=== PATIENT | female | born 2000 | race Two or more races ===

== ENCOUNTER 2024-04-07 12:10 | Emergency (ER) | payer MEDICAID, SELFPAY ==
[2024-04-07 12:14] VITALS: BMI 41.2
[2024-04-07 13:19] VITALS: BP 100/63; PULSE 80; RESP 16; TEMP 37; O2SAT 99
--- NOTE | 2024-04-07 13:25 | XR_ITS ---
Examination: Complete OB ultrasound, less than 14 weeks, transabdominal Date and time of exam: April 07, 2024 1435 hours INDICATIONS: Pelvic cramping nausea and vomiting beginning 2 days ago Technique: Obstetrical ultrasound images less than 14 weeks performed via transabdominal imaging Findings: A normal shaped single intrauterine gestation is present in the uterus. pole 0.4 cm correspondences 6 weeks 1 day gestational age Cardiac motion 120 bpm Ultrasonographic survey of visible and placental structures unremarkable. Amniotic fluid volume appears appropriate for this estimated gestational age. Right ovary 3.0 x 1.9 x 2.2 cm arterial flow Left ovary 3.1 x 2.0 x 2.4 cm arterial flow No fluid in the cul-de-sac IMPRESSION: Viable intrauterine gestation 6 weeks 1 day.
--- NOTE | 2024-04-07 13:26 | PD.EDRME ---
Rapid Medical Screening Exam RME Arrival date/time: 04/07/24 12:10 23-year-old female presents to the emergency department for nausea vomiting positive 1 para 0 Reports has been vomiting have some abdominal cramping. I have greeted and performed a focused initial assessment of this patient. Initial appropriate labs ordered at this time. A comprehensive ED assessment and evaluation of the patient and analysis of all test and completion of medical decision making process will be conducted by additional ED provider. Chief Complaint: Nausea/Vomiting/Diarrhea Time Seen by Provider: 04/07/24 13:14 Vital signs: Vital Signs Temperature 98.6 F 04/07/24 13:19 Pulse Rate 80 04/07/24 13:19 Respiratory Rate 16 04/07/24 13:19 Blood Pressure 100/63 04/07/24 13:19 Pulse Oximetry (%) 99 04/07/24 13:19 Oxygen Delivery Method Room Air 04/07/24 13:19
[2024-04-07 14:16] LABS: Basophils % (Auto) 0 % (0-2.5); Eosinophils # (Auto) 0.1 Thou/mm3 (0.0-0.5); Eosinophils % (Auto) 1 % (0-10); Hematocrit 34.8 % (36.0-46.0); Hemoglobin 11.9 g/dL (12.0-16.0); Immature Granulocytes % (Auto) 0 % (0-0); Immature Granulocytes Auto 0.02 Thou/mm3 (0.00-0.00); Lymphocytes # (Auto) 1.2 Thou/mm3 (1.0-4.8); Lymphocytes % (Auto) 14 % (10-50); Mean Corpuscular HGB Conc 34.2 g/dl (31.0-37.0); Mean Corpuscular Hemoglobin 30.4 pg (25.0-35.0); Mean Corpuscular Volume 89 fL (80-100); Monocytes # (Auto) 0.6 Thou/mm3 (0.0-0.8); Monocytes % (Auto) 7 % (0-12); Neutrophils # (Auto) 6.9 Thou/mm3 (1.8-7.7); Neutrophils % (Auto) 77 % (37-80); Nucleated Red Blood Cell % 0 /100 WBC (0); Platelet Count 284 Thou/mm3 (140-440); RDW Standard Deviation 44.9 fL (36.4-46.3); Red Blood Count 3.91 Miln/mm3 (4.00-5.20); White Blood Count 8.9 Thou/mm3 (3.6-11.0)
[2024-04-07 14:23] LABS: Collection Type, Urine Clean Catch
[2024-04-07 14:38] LABS: Alanine Aminotransferase 31 U/L (10-49); Albumin, Serum 4.8 gm/dL (3.5-5.0); Albumin/Globulin Ratio 1.4 (1.2-2.2); Alkaline Phosphatase 63 U/L (46-116); Anion Gap 12 (7-16); Aspartate Amino Transferase 24 U/L (0-34); BUN/Creatinine Ratio 14 Ratio (12-20); Bilirubin,Total 0.5 mg/dL (0.3-1.2); Blood Urea Nitrogen 10 mg/dL (9-23); Calcium 9.8 mg/dL (8.3-10.6); Calcium (Corrected) 9.8 mg/dL (8.5-10.1); Carbon Dioxide 23.1 mMol/L (20.0-31.0); Chloride 100 mMol/L (98-107); Creatinine (Component) 0.7 mg/dL (0.6-1.3); Estimated Creatinine Clearance 123.1 mL/min (>60); Globulin 3.4 gm/dL (2.3-3.5); Glucose 81 mg/dL (74-106); Osmolality,Calculated 268 (275-295); Potassium 3.8 mMol/L (3.4-5.1); Sodium 135 mMol/L (136-145); Total Protein 8.2 gm/dL (5.7-8.2); eGFR > 60 See Note
[2024-04-07 14:49] LABS: Bacteria,Urine 3+; Bilirubin,Urine Negative (Negative); Blood,Urine 2+ (Negative); Clarity,Urine Turbid (Clear/Hazy); Color,Urine Yellow (Lt Yel-Yel); Glucose, Urine Negative (Negative); Ketones,Urine 4+ (Negative); Leukocyte Esterase,Urine Positive (Negative); Nitrite,Urine Negative (Negative); Protein,Urine 1+ (Neg - Trace); RBC,Urine 1 /hpf (0-3); Specific Gravity,Urine 1.038 (1.001-1.035); Squamous Epithelial Cell,Urine 17 /hpf (0-5); WBC,Urine 16 /hpf (0-5)
[2024-04-07] MEDS: METOCLOPRAMIDE 5 MG TABLET 10 MG PO (14:50)
[2024-04-07 15:07] LABS: Beta HCG,Quantitative 37160 mIU/mL (<5.0)
--- NOTE | 2024-04-07 19:23 | EDNOTE_ITS ---
Nausea/Vomit./Diarrhea-RME/HPI General Chief complaint: Nausea/Vomiting/Diarrhea Stated complaint: with N/V x 1 week, Hemoptosis Time Seen by Provider: 04/07/24 13:14 Arrival date/time: 04/07/24 12:10 Limitations: no limitations RME / HPI RME / HPI Narrative: 04/07/24 12:10 23-year-old female presents to the emergency department for nausea vomiting positive 1 para 0 Reports has been vomiting have some abdominal cramping. I have greeted and performed a focused initial assessment of this patient. Initial appropriate labs ordered at this time. A comprehensive ED assessment and evaluation of the patient and analysis of all test and completion of medical decision making process will be conducted by additional ED provider. DR. LUTZ MAIN ED EVALUATION: 23 year female, 6 weeks 1, para 0, presents to the Emergency Department with complaints of nausea and vomiting. Symptoms are moderate. Patient denies any dysuria or other symptoms at this time. She just found out she is . PMHx: Denies any PMHx, surgeries, daily medications, or known allergies. PCP: [facility] Related Data Previous Rx's ?Medication ?Instructions ?Recorded ofloxacin 0.3 % eye drops 2 drop ophthalmic (eye) QID #5 mL 10/03/19 ondansetron 4 mg disintegrating 4 mg PO Q6H PRN nausea and 07/06/22 tablet vomiting #10 tabs vit,calcium no.40-iron 1 tab PO QDAY #30 tabs 04/07/24 fum 27 mg iron-folate no.1 1 mg tablet (PNV-Select) Allergies Allergy/AdvReac Type Severity Reaction Status Date / Time erythromycin base Allergy Verified 04/07/24 12:13 [From Erythrocin] Review of Systems Review of Systems Systems Reviewed: All systems reviewed, normal except as documented Narrative Review of Systems: GEN: No fever, no chills, no weight loss EYES: No discharge, no visual changes, no pain HEENT: No ear pain, no congestion, no sore throat PULM: No shortness of breath, no cough, no congestion CV: No chest pain, no dyspnea on exertion, no palpitations GI: + nausea, + vomiting, no diarrhea, no pain, no constipation : No frequency, no urgency and no dysuria MUSC/SKEL: No joint pain, no back pain SKIN: No rash PSYCH: No hallucinations, no depression HEME/LYMPH: No easy bleeding or bruising tendencies NEURO: No weakness, no headache Past Medical History Past Medical History CARDIAC: Negative Congestive Heart Failure RESPIRATORY: Negative Chronic Obstructive Pulmonary Disease (COPD) GENITOURINARY: Negative Renal Disease ENDOCRINE: Negative Diabetes Mellitus Type 1 or Diabetes Mellitus Type 2 Social History SMOKING STATUS: Never smoker SUBSTANCE USE: marijuana ALCOHOL: Never ED Exam General Limitations: Present no limitations General appearance: Present alert and in no apparent distress Head Head exam: Present atraumatic, normocephalic and normal inspection Eye Eye exam: Present normal appearance, PERRL and EOMI ENT ENT exam: Present normal exam, normal oropharynx and mucous membranes moist Neck Neck exam: Present normal inspection, full ROM and trachea midline Chest Chest inspection: Present normal inspection and symmetric chest wall rise Respiratory Respiratory exam: Present normal lung sounds bilaterally Cardiovascular Cardiovascular exam: Present regular rate, normal rhythm and normal heart sounds Abdominal Exam Abdominal exam: Present soft and normal bowel sounds Extremities Exam Extremities exam: Present normal inspection and full ROM Back Exam Back exam: Present normal inspection and full ROM Neurological Exam Neurological exam: Present alert, oriented X3 and CN II-XII intact Psychiatric Psychiatric exam: Present normal affect and normal mood Skin Skin exam: Present warm, dry, intact and normal color Course Quality Measures none Orders Category Date Time Status US OB <= 14 weeks fetus Stat Exams 04/07/24 13:25 Completed ABO/RH Type Stat Lab 04/07/24 13:51 Completed Beta HCG,Quantitative Stat Lab 04/07/24 13:51 Completed CBC Stat Lab 04/07/24 13:51 Completed Comprehensive Metabolic Panel Stat Lab 04/07/24 13:51 Completed Urinalysis Stat Lab 04/07/24 14:14 Completed Urine Culture Stat Lab 04/07/24 14:14 Received Metoclopramide [Reglan] Med 04/07/24 13:26 Discontinued 10 mg PO X1 ONE Vital Signs Vital signs: Vital Signs Temperature 98.6 F 04/07/24 13:19 Pulse Rate 80 04/07/24 13:19 Respiratory Rate 16 04/07/24 13:19 Blood Pressure 100/63 04/07/24 13:19 Pulse Oximetry (%) 99 04/07/24 13:19 Oxygen Delivery Method Room Air 01/24/25 13:19 Nausea/Vomiting/Diarrhea MDM Narrative MDM Narrative:: I, Cintia Spears, am scribing for and in the presence of Dr. Lutz. Patient data External records reviewed:: [facility] previous records (Reviewed last ED visit dated 07/06/22, discharged with the following: UTI.) Clinical information provided by:: patient Social determinants that could affect healthcare access:: substance use (marijuana abuse) Patient has the following chronic illnesses:: Denies any PMHx, surgeries, daily medications, or known allergies. How is presenting disease/condition affected by chronic disease/condition?: no chronic disease Evaluation data The following diagnostics were reviewed and interpreted by me:: lab results and radiology exam(s) Lab and/or radiology exams considered but not ordered:: none Interpretation Summary: Procedure(s): US OB <= 14 weeks fetus Accession Number(s): [id number] cc: Seth Al MD; Henry Mcconnell MD; Viviana Morales~ Examination: Complete OB ultrasound, less than 14 weeks, transabdominal Date and time of exam: April 07, 2024 1435 hours INDICATIONS: Pelvic cramping nausea and vomiting beginning 2 days ago Technique: Obstetrical ultrasound images less than 14 weeks performed via transabdominal imaging Findings: A normal shaped single intrauterine gestation is present in the uterus. pole 0.4 cm correspondences 6 weeks 1 day gestational age Cardiac motion 120 bpm Ultrasonographic survey of visible and placental structures unremarkable. Amniotic fluid volume appears appropriate for this estimated gestational age. Right ovary 3.0 x 1.9 x 2.2 cm arterial flow Left ovary 3.1 x 2.0 x 2.4 cm arterial flow No fluid in the cul-de-sac IMPRESSION: Viable intrauterine gestation 6 weeks 1 day. Dictated By: Henry Mcconnell MD Medications / Prescriptions Medications / Prescriptions considered but not ordered:: none Medication administrations:: Medication Administration History Discontinued Medications Metoclopramide HCl (Metoclopramide 5 Mg Tablet) 10 mg PO X1 ONE Stop: 04/07/24 13:27 Last Admin: 04/07/24 14:50 Dose: 10 mg Documented By: see above Consultations Consultation(s) initiated? (list below): No Diagnosis Nausea Differential Diagnosis: dehydration and other (, UTI, electrolyte abnormality) Most likely diagnosis given after review of the tests above:: Intrauterine Nausea Admission Indicated Admission indicated?: not indicated Admission Request Was there a request for admission?: No Disposition Plan Disposition Plan: Discharge Discharge Attestation Discharge Attestation: The patient and all family members were given an opportunity to ask questions and understood the discharge instructions. Discharge instructions specifically effects, indications for sooner follow up or return to the emergency department, and the expected course of current diagnosis. Patient condition: Stable Discharge Plan Plan Patient Disposition: HOME (Self Care) Patient condition on transfer: Stable Prescriptions/Referrals Prescriptions/Med Rec: New PNV-Select 27-1 mg tablet 1 tab PO QDAY Qty: 30 1RF No Action ofloxacin 0.3 % drops 2 drop OPHTHALMIC QID Qty: 5 0RF ondansetron 4 mg tablet,disintegrating 4 mg PO Q6H PRN (Reason: nausea and vomiting) Qty: 10 0RF Referrals: Seth Al MD [Primary Care Provider] - In 1 week Problem List Clinical Impression: Intrauterine , Nausea Patient/Caregiver Discharge Instructions Education Materials: First Trimester, ED Vomiting (Adult) Additional Instructions: 1. Today you are slightly dehydrated however you are still tolerating liquids. You will need to drink Gatorade. Your urine should be almost clear. 2. Please [facility] with [facility] for referral to [facility] for the next 2 to 3 weeks 3. Today your urine shows that you have some bacteria but you have elected not to be treated. You will need to follow-up with your primary care physician in 72 hours to get the results of the urine culture. Return to the emergency department sooner than your appointment if you are having any back pain, fever, vomiting you cannot tolerate liquids, or any other concerns. Print Language: Turkmen Stand Alone Forms: Nancie Award Info., Patient Portal Info Letter
[2024-04-07 20:02] VITALS: RESP 18
== END 2024-04-07 20:03 | disposition home or self-care (01) ==
PROVIDERS: Nurse Practitioner Primary Care; Emergency Provider Emergency Medicine; PCP Family Medicine
DX: O21.9 Vomiting of pregnancy, unspecified (principal); Z3A.01 Less than 8 weeks gestation of pregnancy
CPT/HCPCS: 36415; 76801; 80053; 81001; 84702; 85025; 86900; 86901; 87086; 99284; A9270

== ENCOUNTER 2024-12-04 12:29 | Inpatient (IN) | payer MEDICAID, SELFPAY ==
[2024-12-04] VITALS (14 sets, daily range): BP systolic 111–131; BP diastolic 60–78; PULSE 67–79; RESP 16–98; TEMP 2.6–36.9; O2SAT 99–100; BMI 43.0
--- NOTE | 2024-12-04 09:18 | ESHP_ITS ---
RE: CHICO REES : 2000 DATE OF ADMISSION: 12/04/2024 HISTORY OF PRESENT ILLNESS: This is a 24-year-old 1, para 0 with due date of 11/30/2024 with intrauterine at 40 weeks and 4 days on 12/04/2024, who presents for leaking of fluid and amniosure is positive. The patient reports normal movement. She denies any bleeding. She reports contractions. Her care was complicated by hypothyroidism for which she takes levothyroxine. ALLERGIES: NO KNOWN DRUG ALLERGIES. MEDICATIONS: 1. multivitamin 1 p.o. daily. 2. Levothyroxine 150 mcg 1 p.o. daily. PAST MEDICAL HISTORY: Depression, anxiety, hypothyroidism. SOCIAL HISTORY: She denies any alcohol, drug use or smoking. FAMILY HISTORY: Denies. PAST SURGICAL HISTORY: Denies. REVIEW OF SYSTEMS: She denies any chest pain, palpitations, cough, fever, shortness of breath or lower extremity pain. She denies any headache, change in vision or right upper quadrant pain. PHYSICAL EXAMINATION: VITAL SIGNS: Blood pressure 121/63, heart rate 88, respirations 18, temperature is 98.6. HEENT: Oropharynx and sclerae are clear. LUNGS: Clear to auscultation bilaterally. HEART: Regular rate and rhythm. ABDOMEN: Gravid, term size consistent with estimated weight, 7 3/4 pounds. PELVIC: See RN notes. EXTREMITIES: Nontender. SKIN: No gross rashes or lesions. NEUROLOGIC: No focal deficit. ASSESSMENT AND PLAN: Intrauterine at 40 weeks 4 days on 12/04/2024, PROM. Anticipate spontaneous vaginal delivery. Informed consent was obtained. The patient was made aware of the risks, complications, alternatives, and benefits of operative vaginal delivery and delivery and agrees with these modes of delivery if indicated. DT: 15:06:38 TT: 15:36:00 Ref: [id number] - TID: [id number] MTDD
[2024-12-04 13:03] LABS: ROM Kit Exp Date# 1-18-28; ROM Kit Lot # 58104371; ROM Swab Mixed By: PATTC1; Rupture of Fetal Membranes Positive (Negative); Swb Mxed in Solvent 1 min? Yes
[2024-12-04 15:33] LABS: Basophils # (Auto) 0.0 Thou/mm3 (0.0-0.2); Basophils % (Auto) 0 % (0-2.5); Eosinophils # (Auto) 0.1 Thou/mm3 (0.0-0.5); Eosinophils % (Auto) 2 % (0-10); Hematocrit 34.2 % (36.0-46.0); Hemoglobin 11.3 g/dL (12.0-16.0); Immature Granulocytes Auto 0.03 Thou/mm3 (0.00-0.00); Lymphocytes # (Auto) 1.0 Thou/mm3 (1.0-4.8); Lymphocytes % (Auto) 13 % (10-50); Mean Corpuscular HGB Conc 33.0 g/dl (31.0-37.0); Mean Corpuscular Hemoglobin 29.5 pg (25.0-35.0); Mean Corpuscular Volume 89 fL (80-100); Monocytes # (Auto) 0.7 Thou/mm3 (0.0-0.8); Monocytes % (Auto) 8 % (0-12); Neutrophils # (Auto) 6.0 Thou/mm3 (1.8-7.7); Neutrophils % (Auto) 76 % (37-80); Nucleated Red Blood Cell # 0.00 Thou/mm3 (0.00-0.00); Nucleated Red Blood Cell % 0 /100 WBC (0); Platelet Count 229 Thou/mm3 (140-440); RDW Standard Deviation 45.2 fL (36.4-46.3); Red Blood Count 3.83 Miln/mm3 (4.00-5.20); White Blood Count 7.8 Thou/mm3 (3.6-11.0)
[2024-12-04 15:56] LABS: Syphilis Nonreactive (Nonreactive)
[2024-12-04] MEDS: RINGERS LACTATED 1000 ML 1,000 ML 100 ML IV (19:00)
--- NOTE | 2024-12-04 19:12 | XR_ITS ---
Examination: age Limited Technique: Limited transabdominal sonographic images pelvis Date and time: December 04, 2024, 1948 hrs. Indications: Post dates, unknown presentation. Findings: presentation cephalic spine maternal right Placenta anterior grade 3 Cardiac motion 144 BPM Impression: presentation cephalic
[2024-12-04] MEDS: fentaNYL CIT INJ 50 mCg/ML AMP 2ML 100 MCG IM (21:13)
[2024-12-05] VITALS (209 sets, daily range): BP systolic 93–149; BP diastolic 49–101; PULSE 64–117; RESP 16–24; TEMP 36.8–38; O2SAT 88–100
[2024-12-05] MEDS: RINGERS LACTATED 1000 ML 1,000 ML 100 ML IV ×3 (00:25→08:35)
[2024-12-05] MEDS: OXYTOCIN in NS 30 units 30 UNIT/500 ML BAG IV (01:48)
--- NOTE | 2024-12-05 07:09 | PD.LDPN ---
Documentation for date of: 12/05/24 OB Labor Progress Note Pelvic Exam Dilation (cm): 7 Effacement (%): 80 station: -1 Amniotic membrane status: Ruptured Contractions Monitor mode: External Contraction frequency: 2-3 Contraction intensity: Moderate Status status: Category ll Assessment and Plan Pitocin rate (mU/min): 1 Comments: Anticipate Augmentation with Pitocin.
[2024-12-05] MEDS: Ampicillin Inj 2,000 MG in SODIUM CHLORIDE 0.9% (POP) 100 ML 200 MG IV (12:05)
--- NOTE | 2024-12-05 12:05 | ESPR_ITS ---
Documentation for date of: 12/05/24 OB Labor Progress Note Pain Control Comments: Epidural Pelvic Exam Dilation (cm): 8 Effacement (%): 90 station: 0 Amniotic membrane status: Leaking Contractions Monitor mode: External Contraction frequency: 1-3 Contraction intensity: Strong Status status: Category ll Assessment and Plan Comments: Chorioamnionitis Category 2 tracing trending toward category 3 Amp/Gent Delivery Informed consent was obtained. The patient was made aware of the risks, compl ications, alternatives and benefits of the proposed procedure and she agrees.
[2024-12-05] MEDS: CITRIC ACID/SODIUM CITR 15 ML UDC (BICITRA) 30 ML PO (12:09)
[2024-12-05] MEDS: FAMOTIDINE INJ 10 MG/ML VIAL 2 ML 20 MG IV (12:09)
--- NOTE | 2024-12-05 12:10 | PD.GYNPROC ---
Operative Note - INSULATION CUPOLA CHARGER Procedure Date of procedure: 12/05/24 Indication: IUP 40 weeks and 5 days Induction of labor Prolonged rupture of membranes Chorioamnionitis Category 2 tracing trending toward category 3 tracing Arrest of Dilation Pre-Op diagnosis: IUP 40 weeks and 5 days Induction of labor Prolonged rupture of membranes Chorioamnionitis Category 2 tracing trending toward category 3 tracing Arrest of Dilation Post-Op diagnosis: IUP 40 weeks and 5 days Induction of labor Prolonged rupture of membranes Chorioamnionitis Category 2 tracing trending toward category 3 tracing Arrest of Dilation Uterine atony Anesthesia type: Epidural Procedure description: After proper informed consent was obtained and the patient was made aware of the risks, complications, alternatives and benefits of the proposed procedure she was taken to the operating room where she underwent induction of spinal anesthesia. She was prepped and draped in the usual sterile fashion. A timeout was performed.? A Pfannenstiel skin incision was made with the scalpel and carried through to the underlying layer of fascia with the Bovie. The fascia was nicked in the midline incision and the incision was extended bilaterally with the Bovie. The inferior aspect of the fascial incision was grasped with Lisy clamps elevated and the underlying rectus muscle dissected off with the Bovie. The superior aspect the fascial incision was grasped with Lisy clamps elevated and the underlying rectus muscle dissected off with the Bovie. The rectus muscles were in the midline. The peritoneum was grasped between 2 Gabriel clamps and entered sharply with the Metzenbaum scissors. The peritoneum was extended superiorly and inferiorly with good visualization of the bladder. The vesicouterine peritoneum was incised transversely and the bladder flap created digitally. A [place] blade was inserted. A low transverse incision was made in the uterus with a scapel and the incision was extended digitally. The 's head delivered and the mouth and nose were suctioned with the bulb suction. The shoulder and body delivered atraumatically. The cord was clamped after 30 second delayed cord clamping and the cord was cut.? The was handed off to the waiting Pediatric staff, cord blood was collected for lab testing. The placenta was removed complete and intact. The uterus was exteriorized and cleared of all clots and debris. The uterus was initially atonic but responded to uterotonics and TXA. The uterine incision was closed with #1-0 chromic catgut suture in a running interlocking fashion. A second layer of the same suture was used to imbricate the first layer and obtain excellent hemostasis. The vesicouterine peritoneum was closed with 2-0 chromic catgut suture in a running fashion. The firm uterus was returned to the abdomen. The gutters were cleared of all clots and debris. The peritoneum was closed with 0 chromic catgut suture in running fashion. The rectus muscle was closed with 0 chromic catgut suture. The fascia was closed with 0 Vicryl beginning at each angle and ending in the center in a running fashion. The subcutaneous tissue was irrigated with warmed normal saline solution and found to be hemostatic. The subcutaneous tissue was closed with 2-0 chromic catgut suture in a running fashion. The skin was closed with 4-0 Monocryl. A Dermabond Prineo dressing was applied and a sterile pressure dressing was applied.? She tolerated the procedure well. Counts were correct. I discussed with the patient the nature of her condition, intraoperative findings and expectation for recovery all? questions answered. Specimen: other (placenta. ) Findings: Live baby male Apgars 8 and 9 Cephalic Clear amniotic fluid Weight 7lbs 7 oz Placenta removed complete intact Uterus, initially atonic but responded to uterotonic Fallopian tubes and ovaries grossly within normal limits Complications: other (uterine atony.) Narrative: No vacuum or forceps were used for the delivery. Surgical staff Antolin Davis, CHRIS Sloan Diagnosis Problem List Completed Was Problem List Reviewed/Reconciled?: Yes
[2024-12-05] MEDS: GENTAMICIN/NS 80 MG IVPB 80 MG in PRE-MIXED 1 BAG 50 MG IV (12:35)
[2024-12-05] MEDS: ACETAMINOPHEN IVPB 1,000 MG/100 ML VIAL 250 MG IV (14:17)
[2024-12-05] MEDS: KETOROLAC INJ 30 MG/ML VIAL IVP (16:35)
[2024-12-05] MEDS: AMPICILLIN/SULBAC INJ 3 GM in SODIUM CHLORIDE 0.9% (POP) 100 ML IV ×2 (18:33→23:39)
--- NOTE | 2024-12-05 19:17 | PD.LDDELS ---
Data (Garcia) Data : 1 Delivery Data (Garcia) Labor Data Initiation of labor: Augmentation Induction/Augmentation Agent: Cytotec-PO and Pitocin ROM date: 12/04/24 ROM time: 11:30 Amniotic membrane rupture type: Spontaneous Amniotic fluid description: Clear Delivery Data EDC: 11/30/24 EDC calculated by:: LMP/early US confirmation Onset of labor date: 12/05/24 Onset of labor time: 13:04 [place] delivery date: 12/05/24 delivery time: 13:09 Gestational age (weeks): 40 Gestational age (days): 5 Placenta delivery date: 12/05/24 Placenta delivery time: 13:10 Delivered by: geiling Delivery nurse: terrie Hewitt nurse: terrie pettit Document Examiner at delivery: Yes Support person(s) at delivery: benjy Other staff at delivery: rodríguez payne rn student jomar scherer rn student kulwant rt student ojedg infection control Delivery Method Delivery method: Low Transverse Presentation: Vertex position: OP Anesthesia Type Anesthesia Type: Epidural Anesthesia type: Epidural Placenta Placenta delivery description: Manual Removal Cord blood sent to lab: Yes cord blood collection: Cord Blood Type Episiotomy Episiotomy description: None EBL Estimated blood loss (ml): 600 Umbilical Cord cord description: 3 Vessels Additional Procedures None Complications Complications: Uterine atony Data (Garcia) Data order: 1 [place]'s gender: Male weight (gms): 7 lb 7.579 oz Weight (pounds): 7 lbs and 7.6 ozs 1 minute: 8 5 minutes: 9
[2024-12-05] MEDS: HYDROcodone/APAP 5/325 TABLET 2 TAB PO (20:53)
[2024-12-05 21:17] LABS: Basophils # (Auto) 0.0 Thou/mm3 (0.0-0.2); Basophils % (Auto) 0 % (0-2.5); Eosinophils # (Auto) 0.0 Thou/mm3 (0.0-0.5); Eosinophils % (Auto) 0 % (0-10); Hematocrit 28.4 % (36.0-46.0); Hemoglobin 9.5 g/dL (12.0-16.0); Immature Granulocytes Auto 0.06 Thou/mm3 (0.00-0.00); Lymphocytes # (Auto) 1.1 Thou/mm3 (1.0-4.8); Lymphocytes % (Auto) 8 % (10-50); Mean Corpuscular HGB Conc 33.5 g/dl (31.0-37.0); Mean Corpuscular Hemoglobin 29.8 pg (25.0-35.0); Mean Corpuscular Volume 89 fL (80-100); Monocytes # (Auto) 0.9 Thou/mm3 (0.0-0.8); Monocytes % (Auto) 6 % (0-12); Neutrophils # (Auto) 12.4 Thou/mm3 (1.8-7.7); Neutrophils % (Auto) 86 % (37-80); Nucleated Red Blood Cell # 0.00 Thou/mm3 (0.00-0.00); Nucleated Red Blood Cell % 0 /100 WBC (0); Platelet Count 183 Thou/mm3 (140-440); RDW Standard Deviation 45.5 fL (36.4-46.3); Red Blood Count 3.19 Miln/mm3 (4.00-5.20); White Blood Count 14.4 Thou/mm3 (3.6-11.0)
[2024-12-06] VITALS: BP 129/86; PULSE 67; RESP 17; TEMP 36.6; O2SAT 96
[2024-12-06 01:34] LABS: Gentamicin, Random 1.8 mcg/mL (4.0-10.0)
[2024-12-06] MEDS: OXYTOCIN in NS 20 units 20 UNIT/1,000 ML BAG 125 UNIT IV (03:24)
[2024-12-06] MEDS: HYDROcodone/APAP 5/325 TABLET 1 TAB PO ×2 (03:44→19:30)
[2024-12-06 04:00] VITALS: BP 122/82; PULSE 75; RESP 18; TEMP 36.8; O2SAT 97
[2024-12-06] MEDS: AMPICILLIN/SULBAC INJ 3 GM in SODIUM CHLORIDE 0.9% (POP) 100 ML IV ×3 (05:40→17:51)
[2024-12-06] MEDS: LEVOTHYROXINE SODIUM 125 MCG TABLET PO (05:40)
[2024-12-06 05:45] LABS: Basophils # (Auto) 0.0 Thou/mm3 (0.0-0.2); Basophils % (Auto) 0 % (0-2.5); Eosinophils # (Auto) 0.1 Thou/mm3 (0.0-0.5); Eosinophils % (Auto) 1 % (0-10); Hematocrit 26.5 % (36.0-46.0); Hemoglobin 8.9 g/dL (12.0-16.0); Immature Granulocytes Auto 0.05 Thou/mm3 (0.00-0.00); Lymphocytes # (Auto) 1.1 Thou/mm3 (1.0-4.8); Lymphocytes % (Auto) 9 % (10-50); Mean Corpuscular HGB Conc 33.6 g/dl (31.0-37.0); Mean Corpuscular Hemoglobin 29.9 pg (25.0-35.0); Mean Corpuscular Volume 89 fL (80-100); Monocytes # (Auto) 1.1 Thou/mm3 (0.0-0.8); Monocytes % (Auto) 9 % (0-12); Neutrophils # (Auto) 10.1 Thou/mm3 (1.8-7.7); Neutrophils % (Auto) 81 % (37-80); Nucleated Red Blood Cell # 0.00 Thou/mm3 (0.00-0.00); Nucleated Red Blood Cell % 0 /100 WBC (0); Platelet Count 159 Thou/mm3 (140-440); RDW Standard Deviation 45.6 fL (36.4-46.3); Red Blood Count 2.98 Miln/mm3 (4.00-5.20); White Blood Count 12.5 Thou/mm3 (3.6-11.0)
[2024-12-06 06:06] LABS: Alanine Aminotransferase < 7 U/L (10-49); Albumin, Serum 3.0 gm/dL (3.5-5.0); Albumin/Globulin Ratio 1.3 (1.2-2.2); Alkaline Phosphatase 120 U/L (46-116); Anion Gap 7 (7-16); Aspartate Amino Transferase 20 U/L (0-34); BUN/Creatinine Ratio 9 Ratio (12-20); Bilirubin,Total 0.4 mg/dL (0.3-1.2); Blood Urea Nitrogen 7 mg/dL (9-23); Calcium 8.4 mg/dL (8.3-10.6); Calcium (Corrected) 9.2 mg/dL (8.5-10.1); Carbon Dioxide 23.1 mMol/L (20.0-31.0); Chloride 108 mMol/L (98-107); Creatinine (Component) 0.8 mg/dL (0.6-1.3); Estimated Creatinine Clearance 109.7 mL/min (>60); Globulin 2.4 gm/dL (2.3-3.5); Glucose 81 mg/dL (74-106); Osmolality,Calculated 272 (275-295); Potassium 3.8 mMol/L (3.4-5.1); Sodium 138 mMol/L (136-145); Total Protein 5.4 gm/dL (5.7-8.2); eGFR > 60 See Note
--- NOTE | 2024-12-06 07:27 | ESPR_ITS ---
RE: CHICO REES : 2000 DATE OF SERVICE: 12/06/2024 S: Postop day 1. The patient denies any problems or complaints. She is voiding and ambulating and tolerating a regular diet and passing flatus. She denies any excessive vaginal bleeding. She denies any dizziness or lightheadedness. She denies any chest pain, palpitations, shortness of breath or lower extremity pain. O: Vital Signs: Blood pressure 122/82, heart rate 75, respirations 17, temperature max 100.4. Lungs: Clear to auscultation bilaterally. Heart: Regular rate and rhythm. Abdomen: Mild gaseous distention. Dressing dry and intact. Fundus is firm. Extremities: Nontender. LABORATORY DATA: Hemoglobin pre-delivery is 11.3, post-delivery is 8.9. ASSESSMENT: 1. Postoperative day #1. 2. Status post delivery. 3. Endometritis. P: Continue IV antibiotics. Resume levothyroxine for hypothyroidism at pre- dosing. Continue IV antibiotics until discharge. Possible discharge home tomorrow. Anemia but hemodynamically stable with no ongoing significant vaginal bleeding. DT: 07:02:32 TT: 07:25:00 Ref: [id number] - TID: [id number]
[2024-12-06] MEDS: KETOROLAC INJ 30 MG/ML VIAL IVP (07:55)
[2024-12-06] MEDS: ENOXAPARIN SOD INJ 40 MG/0.4 ML SYRINGE SC (07:55)
[2024-12-06] MEDS: DOCUSATE SOD 100 MG CAPSULE PO (07:56)
[2024-12-06 08:00] VITALS: BP 125/83; PULSE 76; RESP 18; TEMP 36.4
[2024-12-06 12:00] VITALS: BP 125/84; PULSE 69; RESP 20; TEMP 36.6
[2024-12-06] MEDS: HYDROcodone/APAP 5/325 TABLET 2 TAB PO (14:09)
[2024-12-06 17:24] VITALS: BP 112/70; PULSE 85; RESP 20; TEMP 36.4; O2SAT 98
[2024-12-06 19:44] VITALS: BP 129/85; PULSE 87; RESP 20; TEMP 36.6; O2SAT 98
[2024-12-07] MEDS: AMPICILLIN/SULBAC INJ 3 GM in SODIUM CHLORIDE 0.9% (POP) 100 ML IV ×3 (00:10→11:35)
[2024-12-07 04:23] VITALS: BP 121/79; PULSE 98; RESP 16; TEMP 37.1; O2SAT 98
[2024-12-07] MEDS: LEVOTHYROXINE SODIUM 125 MCG TABLET PO (05:59)
[2024-12-07 06:09] LABS: Basophils # (Auto) 0.0 Thou/mm3 (0.0-0.2); Basophils % (Auto) 0 % (0-2.5); Eosinophils # (Auto) 0.2 Thou/mm3 (0.0-0.5); Eosinophils % (Auto) 2 % (0-10); Hematocrit 25.8 % (36.0-46.0); Immature Granulocytes Auto 0.03 Thou/mm3 (0.00-0.00); Lymphocytes # (Auto) 1.0 Thou/mm3 (1.0-4.8); Lymphocytes % (Auto) 9 % (10-50); Mean Corpuscular HGB Conc 32.6 g/dl (31.0-37.0); Mean Corpuscular Hemoglobin 29.8 pg (25.0-35.0); Mean Corpuscular Volume 92 fL (80-100); Monocytes # (Auto) 0.7 Thou/mm3 (0.0-0.8); Monocytes % (Auto) 7 % (0-12); Neutrophils # (Auto) 9.3 Thou/mm3 (1.8-7.7); Neutrophils % (Auto) 82 % (37-80); Nucleated Red Blood Cell # 0.00 Thou/mm3 (0.00-0.00); Nucleated Red Blood Cell % 0 /100 WBC (0); Platelet Count 187 Thou/mm3 (140-440); RDW Standard Deviation 47.4 fL (36.4-46.3); Red Blood Count 2.82 Miln/mm3 (4.00-5.20); White Blood Count 11.3 Thou/mm3 (3.6-11.0)
[2024-12-07 06:11] LABS: Hemoglobin 8.4 g/dL (12.0-16.0)
--- NOTE | 2024-12-07 06:18 | ESPR_ITS ---
RE: CHICO REES : 2000 DATE OF SERVICE: 12/07/2024 SUBJECTIVE: Postop day #2, patient denies any problems or complaints. She is voiding. She is ambulating. She is tolerating a regular diet. She is passing flatus. She denies any excessive vaginal bleeding. She denies any dizziness or lightheadedness. She denies any chest pain, palpitations, shortness of breath or lower extremity pain. OBJECTIVE: Vital Signs: Blood pressure 121/79, heart rate 98, respirations 16, temperature is 98.7, and pulse oximetry is 98% on room air. Lungs: Clear to auscultation bilaterally. Heart: Regular rate and rhythm. Abdomen: Incision clear and intact. Fundus is firm. Extremities: Nontender. ASSESSMENT: Postoperative day #2, status post delivery and endometritis, resolving. PLAN: Discharge home on Augmentin for 5 days. Continue Lovenox at prepregnancy dosing. Follow up in the office in 1 week. DT: 05:35:41 TT: 06:16:00 Ref: [id number] - TID: [id number]
[2024-12-07 07:05] LABS: Alanine Aminotransferase 8 U/L (10-49); Albumin, Serum 3.2 gm/dL (3.5-5.0); Albumin/Globulin Ratio 1.3 (1.2-2.2); Alkaline Phosphatase 119 U/L (46-116); Anion Gap 9 (7-16); Aspartate Amino Transferase 15 U/L (0-34); BUN/Creatinine Ratio 8 Ratio (12-20); Bilirubin,Total 0.2 mg/dL (0.3-1.2); Blood Urea Nitrogen < 5 mg/dL (9-23); Calcium 8.3 mg/dL (8.3-10.6); Calcium (Corrected) 8.9 mg/dL (8.5-10.1); Carbon Dioxide 26.2 mMol/L (20.0-31.0); Chloride 106 mMol/L (98-107); Creatinine (Component) 0.6 mg/dL (0.6-1.3); Estimated Creatinine Clearance 146.2 mL/min (>60); Globulin 2.4 gm/dL (2.3-3.5); Glucose 109 mg/dL (74-106); Osmolality,Calculated 279 (275-295); Potassium 3.8 mMol/L (3.4-5.1); Sodium 141 mMol/L (136-145); Total Protein 5.6 gm/dL (5.7-8.2); eGFR > 60 See Note
[2024-12-07 08:30] VITALS: BP 119/82; PULSE 82; RESP 16; TEMP 36.9; O2SAT 98
[2024-12-07] MEDS: DOCUSATE SOD 100 MG CAPSULE PO (08:46)
[2024-12-07] MEDS: HYDROcodone/APAP 5/325 TABLET 1 TAB PO (08:46)
[2024-12-07] MEDS: ENOXAPARIN SOD INJ 40 MG/0.4 ML SYRINGE SC (08:46)
[2024-12-07 12:00] VITALS: BP 120/75; PULSE 87; RESP 18; TEMP 36.8; O2SAT 96
--- NOTE | 2024-12-07 12:34 | PC.SS ---
This SW copywriting intern completed a face to face biopsychosocial assessment with pt at bedside. FOB of baby involved but no present during bedside. This SW copywriting intern explained the reason for referral as it was reported by assigned RN pt was late to care. Patient was alert and oriented to place and time, she appeared tired and seen bonding appropriately with baby in bed. Pt was able to verify home address and telephone number. She stated [facility] would be transporting both her and baby home once discharged. Pt reported she was late to care because she was having a hard time getting in with preferred provider Dr. Gillis. Patient stated she carried to term and delivered via . score of 8/9 . Pt stated this is her first baby with no history of CPS. She denies any history of drugs or alcohol in the home. Patient states she receives WIC, she receives [employer] $536 with no queen aid services. Patient reports she does her own ADL's and does not use any DME or O2. PT reports baby was not on any lights and passed hearing test. She states she will breast feed baby and has all supplies for baby at home. This SW copywriting intern provided community resources to [place] [facility], local mental health agencies, [facility] and [facility] agencies.
== END 2024-12-07 16:40 | disposition home or self-care (01) | DRG 540 ==
LOC: S4SX 12-05 12:30 → S4NX 12-05 12:50
PROVIDERS: Admitting Provider Specialist; Visit Provider Specialist
PROC: 10D00Z1 Extraction of Products of Conception, Low, Open Approach (ICD-10-PCS; CPT 59514; principal; 2024-12-05 12:30)
DX: O42.02 Full-term premature rupture of membranes, onset of labor within 24 hours of rupture (principal); O48.0 Post-term pregnancy; Z3A.40 40 weeks gestation of pregnancy; Z37.0 Single live birth; O99.284 Endocrine, nutritional and metabolic diseases complicating childbirth; E03.9 Hypothyroidism, unspecified; O41.1230 Chorioamnionitis, third trimester, not applicable or unspecified; O86.12 Endometritis following delivery; O62.0 Primary inadequate contractions; Z79.890 Hormone replacement therapy
CPT/HCPCS: 36415; 59025; 76815; 80053; 80170; 84112; 85025; 86780; 86850; 86900; 86901; 94762; A4217; A4314; A4649; J0131; J0290; J0295; J1580; J1650; J1885; J2210; J2371; J2590; J2795; J3010; J3490; J7050; J7120; S0191; A9270

== ENCOUNTER 2024-12-20 22:45 | Emergency (ER) | payer MEDICAID, SELFPAY ==
[2024-12-20 22:46] VITALS: BMI 36.3
--- NOTE | 2024-12-20 23:00 | PD.EDABDPN ---
ED Abdominal Pain RME/HPI General Chief Complaint: Abdominal Pain Stated complaint: UPPER ABD PAIN Arrival date/time: 12/20/24 22:45 RME / HPI RME / HPI narrative: See [facility] for Dr. Eubanks's HPI documentation. Related Data Previous Rx's ?Medication ?Instructions ?Recorded vit,calcium no.40-iron 1 tab PO QDAY #30 tabs 04/07/24 fum 27 mg iron-folate no.1 1 mg tablet (PNV-Select) hydrocodone 5 mg-acetaminophen 325 1 tab PO Q6H PRN pain #20 tabs 12/05/24 mg tablet ibuprofen 600 mg tablet 600 mg PO Q6H PRN pain #30 tabs 12/05/24 amoxicillin 875 mg-potassium 1 tab PO BID #10 tabs 12/07/24 clavulanate 125 mg tablet ferrous sulfate 325 mg (65 mg 325 mg PO BID #60 tabs 12/07/24 iron) tablet levothyroxine 125 mcg capsule 125 mcg PO QDAY #90 caps 12/07/24 amoxicillin 875 mg-potassium 1 tab PO BID 5 days #10 tabs 12/21/24 clavulanate 125 mg tablet ondansetron 4 mg disintegrating 4 mg PO TID PRN nausea and 12/21/24 tablet vomiting 30 days #10 tabs oxycodone-acetaminophen 5 mg-325 2 tab PO Q8H PRN pain #20 tabs 12/21/24 mg tablet (Percocet) Allergies Allergy/AdvReac Type Severity Reaction Status Date / Time erythromycin base (From Allergy Verified 12/04/24 18:56 Erythrocin) Review of Systems Review of Systems Systems Reviewed: All systems reviewed, normal except as documented ED Exam Narrative Physical exam: See [facility] for Dr. Eubanks's physical exam documentation. Course Quality Measures none Orders Category Date Time Status Saline [Insert IV] NOW Care 12/20/24 23:05 Completed US gall bladder Stat Exams 12/21/24 00:13 Taken Amylase Stat Lab 12/20/24 23:12 Completed Bilirubin,Direct Stat Lab 12/20/24 23:12 Completed CBC Stat Lab 12/20/24 23:12 Completed CMP [Comprehensive Metabolic Panel] Stat Lab 12/20/24 23:12 Completed HCG,Qualitative Serum Stat Lab 12/20/24 23:12 Completed Lipase Stat Lab 12/20/24 23:12 Completed Magnesium Stat Lab 12/20/24 23:12 Completed UA, C/S IF [Urinalysis, C/S if Indicated] Stat Lab 12/20/24 23:50 Completed Urine Culture Stat Lab 12/20/24 23:50 Received Morphine* Inj Med 12/20/24 23:05 Discontinued 6 mg IV X1 ONE Ondansetron Inj [Zofran Inj] Med 12/20/24 23:05 Discontinued 4 mg IVP X1 ONE Sodium Chloride 0.9% 1000 ml [Ns] 1,000 ml Med 12/20/24 23:05 Discontinued IV 999 mls/hr cefTRIAXone/D5w 1gm IV premix [Rocephin/D5w 1gm IV Med 12/21/24 00:43 Discontinued premix] 1 gm in 50 ml IV X1 Vital Signs Vital signs: Vital Signs Temperature 98.4 F 12/20/24 23:36 Pulse Rate 78 12/20/24 23:36 Respiratory Rate 18 12/20/24 23:36 Blood Pressure 110/76 12/20/24 23:36 Pulse Oximetry (%) 97 12/20/24 23:36 Oxygen Delivery Method Room Air 12/20/24 23:36 Abdominal Pain MDM MDM Narrative MDM Narrative:: This section includes all my notes and documentations, including HPI, PE, and ED course. Alex Eubanks MD HPI: 24yo female here with RUQ pain for the last 12 hours with nausea and vomiting. No fever. No other complaints reported. ROS: All negative except as documented in HPI. Physical Exam: General: Alert and oriented. In obvious pain. Eyes: Conjunctivae and lids clear. ENT: No nasal congestion. Neck: Supple. Heart: RRR. Lungs: No respiratory distress. Good air movement. No rhonchi, wheezing, rales. Abdomen: Soft with RUQ tenderness. Normal bowel sounds. No distension. No rebound or guarding. Back: No CVA tenderness. Skin: Warm and dry. Neuro: Alert and oriented X 3. I reviewed all diagnostic test results. My review of the gallbladder US report is cholelithiasis. Blood tests unremarkable. UA remarkable for positive leukocyte esterase, 16 RBC, and 14 WBC. At this point, diagnoses include: Gallstones UTI Treatment here included: Morphine 4 mg IV Zofran 4 mg IV IV fluid Rocephin 1 g IV Significant improvement noted. Recommended outpatient care. Based on my best medical judgment, made decision no further evaluation or treatment indicated at this time. Patient understands and agrees to the discharge instructions customized and printed, see below. Discharge Instructions from Dr. Eubanks: 1. After evaluation, your symptoms are due to gallstone(s). You need gallbladder to help digest fatty foods. 2. So to prevent future attacks, avoid all fatty and oily and greasy and buttery and dairy foods. This usually means take out and fast food restaurants. 3. Zofran for nausea/vomiting. Tylenol with codeine for severe pain. Clear liquid diet for 24 hours then advance diet slowly as tolerated. 4. For your urinary tract infection, take Augmentin as prescribed. 5. See a private doctor on 12/22/2024 for recheck and further care. Ask to review all test results and official radiology reports, to make sure you receive all necessary follow-ups and monitoring. Ask for help seeing a general surgeon to discuss elective surgery. 6. Seek immediate medical care with intolerable pain, fever, or with any concerns. Aelx Eubanks MD Patient data External records reviewed:: [facility] previous records (Per chart review, patient has no relevant previous ED visits.) Clinical information provided by:: patient Social determinants that could affect healthcare access:: none Patient has the following chronic illnesses:: none How is presenting disease/condition affected by chronic disease/condition?: no chronic disease Evaluation data The following diagnostics were reviewed and interpreted by me:: lab results and radiology exam(s) Lab and/or radiology exams considered but not ordered:: none Interpretation Summary: I reviewed all diagnostic test results. My review of the gallbladder US report is cholelithiasis. Blood tests unremarkable. UA remarkable for positive leukocyte esterase, 16 RBC, and 14 WBC. Medications / Prescriptions Medications or Prescriptions considered but not ordered:: none Medication administrations:: Medication Administration History Discontinued Medications Sodium Chloride (Ns) 1,000 mls @ 999 mls/hr IV .Q1H1M ONE Stop: 12/21/24 00:05 Last Infusion: 12/21/24 01:35 Dose: Infused Documented By: Admin: 12/21/24 00:34 Dose: 999 mls/hr Documented By: DT Ceftriaxone Sodium/Dextrose (Rocephin/D5w 1gm Iv Premix) 1 gm in 50 mls @ 100 mls/hr IV X1 ONE Stop: 12/21/24 01:12 Last Infusion: 12/21/24 01:57 Dose: Infused Documented By: Admin: 12/21/24 01:27 Dose: 100 mls/hr Documented By: DT Morphine Sulfate (Morphine Sulf Inj 4 Mg/Ml Vial) 6 mg IV X1 ONE Stop: 12/20/24 23:06 Last Admin: 12/21/24 00:36 Dose: 6 mg Documented By: DT Ondansetron HCl (Ondansetron Inj 2 Mg/Ml Inj 2 Ml) 4 mg IVP X1 ONE; Protocol Stop: 12/20/24 23:06 Last Admin: 12/21/24 00:35 Dose: 4 mg Documented By: DT Treatment here included: Morphine 4 mg IV Zofran 4 mg IV IV fluid Rocephin 1 g IV Consultations Consultation(s) initiated? (list below): No Diagnosis Differential diagnosis abdominal pain: constipation, diverticulitis, pancreatitis and other (gastritis, cholelithiasis, cholecystitis) Most likely diagnosis given after review of the tests above:: Gallstones UTI Admission Indicated Admission indicated?: not indicated Explain why admission is indicated or not indicated:: With significant improvement and no condition needing emergent intervention, there was no indication for admission. Admission Request Was there a request for admission?: No Disposition Plan Disposition Plan: Discharge Discharge Attestation Discharge Attestation: The patient and all family members were given an opportunity to ask questions and understood the discharge instructions. Discharge instructions specifically effects, indications for sooner follow up or return to the emergency department, and the expected course of current diagnosis. Patient condition: Stable Discharge Plan Plan Patient Disposition: HOME (Self Care) Prescriptions/Referrals Prescriptions/Med Rec: New oxycodone-acetaminophen [Percocet] 5-325 mg tablet 2 tab PO Q8H MDD 6 PRN (Reason: pain) Qty: 20 0RF ondansetron 4 mg tablet,disintegrating 4 mg PO TID PRN (Reason: nausea and vomiting) 30 Days Qty: 10 0RF amoxicillin-pot clavulanate 875-125 mg tablet 1 tab PO BID 5 Days Qty: 10 0RF No Action PNV-Select 27-1 mg tablet 1 tab PO QDAY Qty: 30 1RF ibuprofen 600 mg tablet 600 mg PO Q6H PRN (Reason: pain) Qty: 30 0RF hydrocodone-acetaminophen 5-325 mg tablet 1 tab PO Q6H MDD 4 PRN (Reason: pain) Qty: 20 0RF amoxicillin-pot clavulanate 875-125 mg tablet 1 tab PO BID Qty: 10 0RF levothyroxine 125 mcg capsule 125 mcg PO QDAY Qty: 90 3RF ferrous sulfate 325 mg (65 mg iron) tablet 325 mg PO BID Qty: 60 1RF Referrals: No Primary/Family,Physician [Primary Care Provider] - In 1 week Problem List Clinical Impression: Gallstones, UTI (urinary tract infection) Patient/Caregiver Discharge Instructions Discharge Activity: activity as tolerated Education Materials: ED Gallstones with Biliary Colic, ED CYSTITIS Female Adult Additional Instructions: Discharge Instructions from Dr. Eubanks: 1. After evaluation, your symptoms are due to gallstone(s).? You need gallbladder to help digest fatty foods. 2. So to prevent future attacks, avoid all fatty and oily and greasy and buttery and dairy foods.? This usually means take out and fast food restaurants. 3. Zofran for nausea/vomiting.? Tylenol with codeine for severe pain.? Clear liquid diet for 24 hours then advance diet slowly as tolerated. 4. For your urinary tract infection, take Augmentin as prescribed. 5. See a private doctor on 12/22/2024 for recheck and further care. Ask to review all test results and official radiology reports, to make sure you receive all necessary follow-ups and monitoring. Ask for help seeing a general surgeon to discuss elective surgery. 6. Seek immediate medical care with intolerable pain, fever, or with any concerns. Print Language: Irish Stand Alone Forms: Nancie Award Info., Patient Portal Info Letter
[2024-12-20 23:36] VITALS: BP 110/76; PULSE 78; RESP 18; TEMP 36.9; O2SAT 97
[2024-12-20 23:41] LABS: Basophils # (Auto) 0.0 Thou/mm3 (0.0-0.2); Basophils % (Auto) 0 % (0-2.5); Eosinophils # (Auto) 0.1 Thou/mm3 (0.0-0.5); Eosinophils % (Auto) 1 % (0-10); Hematocrit 36.7 % (36.0-46.0); Hemoglobin 11.7 g/dL (12.0-16.0); Immature Granulocytes Auto 0.03 Thou/mm3 (0.00-0.00); Lymphocytes # (Auto) 1.0 Thou/mm3 (1.0-4.8); Lymphocytes % (Auto) 12 % (10-50); Mean Corpuscular HGB Conc 31.9 g/dl (31.0-37.0); Mean Corpuscular Hemoglobin 28.6 pg (25.0-35.0); Mean Corpuscular Volume 90 fL (80-100); Monocytes # (Auto) 0.4 Thou/mm3 (0.0-0.8); Monocytes % (Auto) 5 % (0-12); Neutrophils # (Auto) 7.1 Thou/mm3 (1.8-7.7); Neutrophils % (Auto) 82 % (37-80); Nucleated Red Blood Cell # 0.00 Thou/mm3 (0.00-0.00); Nucleated Red Blood Cell % 0 /100 WBC (0); Platelet Count 459 Thou/mm3 (140-440); RDW Standard Deviation 43.9 fL (36.4-46.3); Red Blood Count 4.09 Miln/mm3 (4.00-5.20); White Blood Count 8.7 Thou/mm3 (3.6-11.0)
[2024-12-20 23:55] LABS: Alanine Aminotransferase 82 U/L (10-49); Albumin, Serum 4.5 gm/dL (3.5-5.0); Albumin/Globulin Ratio 1.4 (1.2-2.2); Alkaline Phosphatase 252 U/L (46-116); Amylase 34 U/L (30-118); Anion Gap 14 (7-16); Aspartate Amino Transferase 119 U/L (0-34); BUN/Creatinine Ratio 9 Ratio (12-20); Bilirubin,Direct 0.6 mg/dL (0.0-0.3); Bilirubin,Total 1.2 mg/dL (0.3-1.2); Blood Urea Nitrogen 8 mg/dL (9-23); Calcium 9.4 mg/dL (8.3-10.6); Calcium (Corrected) 9.4 mg/dL (8.5-10.1); Carbon Dioxide 26.2 mMol/L (20.0-31.0); Chloride 104 mMol/L (98-107); Creatinine (Component) 0.9 mg/dL (0.6-1.3); Estimated Creatinine Clearance 88.4 mL/min (>60); Globulin 3.3 gm/dL (2.3-3.5); Glucose 114 mg/dL (74-106); Lipase 40 U/L (12-53); Magnesium 2.2 mg/dL (1.6-2.6); Osmolality,Calculated 286 (275-295); Potassium 3.4 mMol/L (3.4-5.1); Sodium 144 mMol/L (136-145); Total Protein 7.8 gm/dL (5.7-8.2); eGFR > 60 See Note
[2024-12-20 23:59] LABS: Collection Type, Urine Clean Catch; Squamous Epithelial Cell,Urine 0 /hpf (0-5)
--- NOTE | 2024-12-21 00:13 | XR_ITS ---
Examination: Abdomen sonogram, Limited Date and time of exam: December 21, 2024, 0054 hours INDICATIONS: Right upper abdominal pain and nausea beginning 10 days ago Technique: Real-time kay scale transabdominal sonographic images of the upper abdomen obtained. Findings: Multiple gallstones Normal gallbladder wall Common bile duct enlarged 0.72 cm no definite stones Pancreatic head 2.28 cm Liver 14.8 cm no focal liver lesions Normal hepatopetal portal venous flow Patent IVC IMPRESSION: Cholelithiasis, negative for cholecystitis Abnormal enlargement common bile duct, consider MRCP follow-up to exclude common bile duct stones
[2024-12-21] MEDS: SODIUM CHLORIDE 0.9% 1000 ML 1,000 ML 999 ML IV (00:34)
[2024-12-21] MEDS: ONDANSETRON INJ 2 MG/ML INJ 2 ML 4 MG IVP (00:35)
[2024-12-21] MEDS: MORPHINE SULF INJ 4 MG/ML VIAL 6 MG IV (00:36)
[2024-12-21 00:38] LABS: Bilirubin,Urine Negative (Negative); Blood,Urine 2+ (Negative); Clarity,Urine Clear (Clear/Hazy); Color,Urine Yellow (Lt Yel-Yel); Culture Indicated,Urine Yes; Glucose, Urine Negative (Negative); Ketones,Urine Negative (Negative); Leukocyte Esterase,Urine Positive (Negative); Nitrite,Urine Negative (Negative); PH,Urine 7.5 (5.0-7.0); Protein,Urine Trace (Neg - Trace); RBC,Urine 16 /hpf (0-3); Specific Gravity,Urine 1.024 (1.001-1.035); Urobilinogen,Urine Negative mg/dL (0.0-1.0); WBC,Urine 14 /hpf (0-5)
[2024-12-21 00:51] LABS: HCG,Qualitative Serum Negative
[2024-12-21] MEDS: cefTRIAXone/D5w 1gm IV premix 1 GM/50 ML BAG IV (01:27)
--- NOTE | 2024-12-21 02:13 | PRELIM_ITS ---
Gallbladder ultrasound. December 21, 2024 at 0054 hours Clinical history: Right upper quadrant tenderness/pain, nausea x 1 day. Findings: The visualized liver is normal in echogenicity. There is no intrahepatic biliary duct dilatation. The main portal vein is patent and demonstrates hepatopetal flow. There are multiple calculi in the gallbladder. No gallbladder wall thickening or pericholecystic fluid is identified. The common duct is d ilated, measuring 7.2 mm.No ductal calculus is demonstrated sonographically. The pancreas is unremarkable to the extent visualized. No free fluid is demonstrated on the submitted images. The inferior vena cava is patent. Impression: Cholelithiasis. No gallbladder wall thickening or pericholecystic fluid. Dilated common bile duct. Recommend clinical correlation and further evaluation with MRCP, if clinically indicated. Report Electronically Signed By: Sarmad Kelly 12/21/2024 2:11:50 AM [EST]
[2024-12-21 02:39] VITALS: BP 128/95; PULSE 75; RESP 14; TEMP 37; O2SAT 99
== END 2024-12-21 02:39 | disposition home or self-care (01) ==
PROVIDERS: Emergency Provider Emergency Medicine
DX: K80.20 Calculus of gallbladder without cholecystitis without obstruction (principal); N39.0 Urinary tract infection, site not specified
CPT/HCPCS: 36415; 76705; 80053; 81001; 82150; 82248; 83690; 83735; 84703; 85025; 87086; 96361; 96365; 96375; 99284; J0696; J2270; J2405; J7030

== ENCOUNTER 2025-01-08 03:16 | Inpatient (IN) | payer MEDICAID, SELFPAY ==
[2025-01-08] VITALS (7 sets, daily range): BP systolic 112–125; BP diastolic 67–93; PULSE 68–88; RESP 14–19; TEMP 36.6–37.1; O2SAT 97–100; BMI 33.7
--- NOTE | 2025-01-08 | XR_ITS ---
MRI abdomen, without contrast. MRCP Date and time of exam: January 08, 2025, 1500 hours INDICATIONS: Right upper abdominal pain and back pain beginning 3 days ago Technique: Multiple axial and coronal images of the abdomen have been obtained with the Siemens 1.5T MRI scanner. Images obtained included T1 weighted transverse images, T2-weighted transverse images, T2-weighted transverse images fat-suppressed, T2 weighted haste fat suppressed transverse images, T1 weighted images, in and out of phase images, T2-weighted coronal images, breath hold, T2 weighted haze coronal images as well as T2 weighted coronal thick slab images, MRCP. Findings: Mild intrahepatic biliary tract dilatation Cholelithiasis, gallbladder wall thickening and edema 4 mm filling defect in the common bile duct coronal image 11 No pancreatic edema No splenomegaly No ascites Aorta normal size No hydronephrosis IMPRESSION: Acute calculus cholecystitis 4 mm stone in the common bile duct, consider ERCP follow-up
--- NOTE | 2025-01-08 03:50 | XR_ITS ---
Examination: Abdomen sonogram, Limited Date and time of exam: January 08, 2025, 0404 hours INDICATIONS: Right upper abdominal pain epigastric pain beginning 2 days ago Technique: Real-time kay scale transabdominal sonographic images of the upper abdomen obtained. Findings: Gallbladder sludge Multiple tiny gallstones Gallbladder wall 0.3 cm no edema Common bile duct 0.3 cm Pancreas obscured by bowel gas Liver 14.5 cm smooth contour no focal liver lesions Normal hepatopetal portal venous flow Patent IVC IMPRESSION: Cholelithiasis, negative for cholecystitis
--- NOTE | 2025-01-08 03:50 | PD.EDRME ---
Rapid Medical Screening Exam E Arrival date/time: 01/08/25 03:16 This is a case of 34-year-old female who came into the emergency room due to right upper quadrant pain history of gallstones with nausea vomiting today worsening of the symptoms this patient decided to start consulted in the emergency room Chief Complaint: Abdominal Pain Vital signs: Vital Signs Temperature 98.7 F 01/08/25 03:44 Pulse Rate 88 01/08/25 03:44 Respiratory Rate 16 01/08/25 03:44 Blood Pressure 120/79 01/08/25 03:44 Pulse Oximetry (%) 98 01/08/25 03:44 Oxygen Delivery Method Room Air 01/08/25 03:44 Exam: Tenderness right upper quadrant Clinical Impression: Abdominal pain
--- NOTE | 2025-01-08 04:45 | PRELIM_ITS ---
Gallbladder ultrasound. January 08, 2025 at 0404 hours Clinical history: Gallstone. Comparison: Compared with the prior study dated December 21, 2024. Findings: The visualized liver is normal in size and echogenicity without mass or ductal dilatation. There are multiple small gallbladder calculi. There is borderline gallbladder wall thickness measuring 3mm. No pericholecystic fluid is identified. The common duct is normal in caliber at 3.2 mm. No free fluid is demonstrated on the submitted images. The pancreas is limited in evaluation due to bowel gas. Impression: Cholelithiasis with borderline gallbladder wall thickness, the possibility of acute cholecystitis cannot be excluded. Other findings as described above. Report Electronically Signed By: Mitch Ochoa 01/08/2025 4:44:53 AM [EST]
[2025-01-08 05:05] LABS: Collection Type, Urine Clean Catch
[2025-01-08 05:09] LABS: HCG Qualitative,Urine Negative
[2025-01-08 05:17] LABS: Bilirubin,Urine 1+ (Negative); Blood,Urine Negative (Negative); Clarity,Urine Turbid (Clear/Hazy); Color,Urine Yellow (Lt Yel-Yel); Glucose, Urine Negative (Negative); Ketones,Urine 3+ (Negative); Leukocyte Esterase,Urine Negative (Negative); Nitrite,Urine Negative (Negative); PH,Urine 5.5 (5.0-7.0); Protein,Urine Negative (Neg - Trace); RBC,Urine 3 /hpf (0-3); Specific Gravity,Urine 1.011 (1.001-1.035); Squamous Epithelial Cell,Urine 3 /hpf (0-5); Urobilinogen,Urine 6.0 mg/dL (0.0-1.0); WBC,Urine 2 /hpf (0-5)
[2025-01-08 07:07] LABS: Basophils # (Auto) 0.0 Thou/mm3 (0.0-0.2); Basophils % (Auto) 0 % (0-2.5); Eosinophils # (Auto) 0.3 Thou/mm3 (0.0-0.5); Eosinophils % (Auto) 5 % (0-10); Hematocrit 38.9 % (36.0-46.0); Hemoglobin 12.6 g/dL (12.0-16.0); Immature Granulocytes Auto 0.01 Thou/mm3 (0.00-0.00); Lymphocytes # (Auto) 1.2 Thou/mm3 (1.0-4.8); Lymphocytes % (Auto) 16 % (10-50); Mean Corpuscular HGB Conc 32.4 g/dl (31.0-37.0); Mean Corpuscular Hemoglobin 29.5 pg (25.0-35.0); Mean Corpuscular Volume 91 fL (80-100); Monocytes # (Auto) 0.6 Thou/mm3 (0.0-0.8); Monocytes % (Auto) 9 % (0-12); Neutrophils # (Auto) 4.9 Thou/mm3 (1.8-7.7); Neutrophils % (Auto) 70 % (37-80); Nucleated Red Blood Cell # 0.00 Thou/mm3 (0.00-0.00); Nucleated Red Blood Cell % 0 /100 WBC (0); Platelet Count 278 Thou/mm3 (140-440); RDW Standard Deviation 48.8 fL (36.4-46.3); Red Blood Count 4.27 Miln/mm3 (4.00-5.20); White Blood Count 7.0 Thou/mm3 (3.6-11.0)
--- NOTE | 2025-01-08 07:24 | PD.EDABDPN ---
ED Abdominal Pain RME/HPI General Chief Complaint: Abdominal Pain Stated complaint: RIGHT UPPER ABD AND BACK PAIN, HIVES Time seen by provider: 01/08/25 03:51 Arrival date/time: 01/08/25 03:16 24-year-old female with no known medical history presents to the emergency room with a chief complaint of right upper abdominal pain and back pain x 3 days Source: patient Mode of arrival: ambulatory Limitations: no limitations RME / HPI RME / HPI narrative: 01/08/25 03:16 This is a case of 34-year-old female who came into the emergency room due to right upper quadrant pain history of gallstones with nausea vomiting today worsening of the symptoms this patient decided to start consulted in the emergency room Exam: Tenderness right upper quadrant Impression: Abdominal pain Related Data Previous Rx's ?Medication ?Instructions ?Recorded ferrous sulfate 325 mg (65 mg 325 mg PO BID #60 tabs 12/07/24 iron) tablet levothyroxine 125 mcg capsule 125 mcg PO QDAY #90 caps 12/07/24 Allergies Allergy/AdvReac Type Severity Reaction Status Date / Time erythromycin base (From Allergy Verified 01/08/25 03:17 Erythrocin) Review of Systems Review of Systems Systems Reviewed: All systems reviewed, normal except as documented Constitutional Constitutional: Reports system reviewed and no additional complaints, except as documented, Denies fatigue, Denies fever(s), Denies headache(s) and Denies weakness Eyes Eyes: Reports system reviewed and no additional complaints, except as documented, Denies blurry vision and Denies change in vision ENT Ears, Nose, Mouth, and Throat: Reports system reviewed and no additional complaints, except as documented, Denies otalgia, Denies headache(s), Denies nasal congestion, Denies throat swelling and Denies vertigo Cardiovascular Cardiovascular: Reports system reviewed and no additional complaints, except as documented, Denies chest pain, Denies dyspnea and Denies dyspnea on exertion Respiratory Respiratory: Reports system reviewed and no additional complaints, except as documented, Denies chest congestion, Denies cough, Denies dyspnea, Denies dyspnea on exertion and Denies wheezing Gastrointestinal Gastrointestinal: Reports system reviewed and no additional complaints, except as documented, Reports abdominal pain, Reports cramping, Reports nausea and Denies vomiting Genitourinary Genitourinary: Reports system reviewed and no additional complaints, except as documented Musculoskeletal Musculoskeletal: Reports system reviewed and no additional complaints, except as documented and Denies back pain Integumentary/Breasts Skin/Breast: Reports system reviewed and no additional complaints, except as documented and Denies wounds Neurologic Neurologic: Reports system reviewed and no additional complaints, except as documented, Denies confusion, Denies headache(s), Denies lack of coordination, Denies vertigo and Denies weakness Psychiatric Psychiatric: Reports system reviewed and no additional complaints, except as documented, Denies anxiety, Denies confusion, Denies depression, Denies paranoia, Denies suicidal ideation and Denies tactile hallucinations Endocrine Endocrine: Reports system reviewed and no additional complaints, except as documented and Denies fatigue Hematologic/Lymphatic Hematologic/Lymphatic: Reports system reviewed and no additional complaints, except as documented and Denies lymphadenopathy Allergic/Immunologic Allergic/Immunologic: Reports system reviewed and no additional complaints, except as documented, Denies throat swelling, Denies urticaria and Denies wheezing Past Medical History Past Medical History NEUROLOGIC: Negative Neurological Disorders, Alzheimer's Disease or Seizures CARDIAC: Negative Cardiac Disorders or Congestive Heart Failure RESPIRATORY: Negative Chronic Obstructive Pulmonary Disease (COPD) GASTROINTESTINAL: Negative Gastrointestinal Disorders or Hepatitis GENITOURINARY: Negative Genitourinary Disorders or Renal Disease REPRODUCTIVE: Negative Endometriosis, Pelvic Inflammatory Disease, Previous Pregnancies or Uterine Prolapse MUSCULOSKELETAL: Negative Musculoskeletal Disorders or Carpal Tunnel Syndrome ENDOCRINE: Negative Endocrine Disorders, Diabetes Mellitus Type 1 or Diabetes Mellitus Type 2 HEMATOLOGIC: Negative Blood Disorders OTHER HISTORY: Negative Autoimmune Disease, Blood Transfusions, Blood Transfusion Reaction, Anesthesia Reactions, Organ Transplant, MRSA, VRSA, Vancomycin-Resistant Enterococci, Clostridium Difficile or Cancer Surgical History SURGICAL: Negative Cardiac Surgery, Endocrine Surgery, Thyroidectomy, Ear Surgery, Abdominal Surgery, Nephrectomy, Joint Replacement, Arthroscopy, Neurologic Surgery, Lumpectomy or Organ Transplant Social History SMOKING STATUS: Never smoker SUBSTANCE USE: marijuana ED Exam General Limitations: Present no limitations General appearance: Present alert and in no apparent distress Head Head exam: Present atraumatic Eye Eye exam: Present normal appearance, PERRL and EOMI ENT ENT exam: Present normal exam, normal oropharynx and mucous membranes moist Neck Neck exam: Present normal inspection, full ROM and trachea midline Chest Chest inspection: Present normal inspection and symmetric chest wall rise Respiratory Respiratory exam: Present normal lung sounds bilaterally Cardiovascular Cardiovascular exam: Present regular rate, normal rhythm and normal heart sounds Abdominal Exam Abdominal exam: Present soft, tenderness, normal bowel sounds and Quigley's sign Abdominal tenderness: Present RUQ, epigastrium and moderate Extremities Exam Extremities exam: Present normal inspection and full ROM Back Exam Back exam: Present normal inspection and full ROM Neurological Exam Neurological exam: Present alert, oriented X3 and CN II-XII intact Psychiatric Psychiatric exam: Present normal affect and normal mood Skin Skin exam: Present warm, dry, intact and normal color Course Quality Measures none Orders Category Date Time Status Decision to Admit X1 Care 01/08/25 19:42 Completed Insert IV STAT Care 01/08/25 09:33 Active MRI Screening NOW Care 01/08/25 10:24 Active NPO NOW Care 01/08/25 16:27 Active NPO NOW Care 01/08/25 18:58 Active Consult to Gastroenterology Stat Cons 01/08/25 17:37 Ordered Consult to Gastroenterology Stat Cons 01/08/25 18:52 Ordered Consult to General Surgery Stat Cons 01/08/25 17:37 Ordered Diet NPO (NOW) Diet 01/08/25 16:27 Completed Diet NPO (NOW) Diet 01/08/25 18:[address] abdomen pelvis wo con Stat Exams 01/08/25 08:15 Completed MR MRCP Stat Exams 01/08/25 Completed US gall bladder Stat Exams 01/08/25 03:50 Completed CBC Stat Lab 01/08/25 06:18 Completed Comprehensive Metabolic Panel Stat Lab 01/08/25 06:18 Completed HCG Qualitative,Urine Stat Lab 01/08/25 04:33 Completed Lipase Stat Lab 01/08/25 06:18 Completed Urinalysis Stat Lab 01/08/25 04:33 Completed DiphenhydrAMINE INJ [Benadryl Inj] Med 01/08/25 17:43 Discontinued 25 mg IVP X1 ONE Morphine* Inj Med 01/08/25 09:33 Discontinued 4 mg IVP X1 ONE Morphine* Inj Med 01/08/25 11:05 Discontinued 4 mg IVP X1 ONE Ondansetron Inj [Zofran Inj] Med 01/08/25 09:33 Discontinued 4 mg IVP X1 ONE Ondansetron Inj [Zofran Inj] Med 01/08/25 11:05 Discontinued 4 mg IVP X1 ONE Pantoprazole Inj [Protonix Inj] Med 01/08/25 16:26 Discontinued 40 mg IVP X1 ONE Piper/Tazo 3.375 gm Premix [Zosyn] Med 01/08/25 16:26 Discontinued 3.375 gm in 50 ml IV X1 Ringers Lactated 1000 ml [Lactated Ringers] 1,000 ml Med 01/08/25 18:58 Active IV 250 mls/hr Ringers Lactated 1000 ml [Lactated Ringers] 1,000 ml Med 01/08/25 16:27 Discontinued IV 999 mls/hr Sodium Chloride 0.9% 1000 ml [Ns] 1,000 ml Med 01/08/25 09:34 Discontinued IV 999 mls/hr Vital Signs Vital signs: Vital Signs Temperature 98.7 F 01/08/25 03:44 Pulse Rate 88 01/08/25 03:44 Respiratory Rate 16 01/08/25 03:44 Blood Pressure 120/79 01/08/25 03:44 Pulse Oximetry (%) 98 01/08/25 03:44 Oxygen Delivery Method Room Air 01/08/25 03:44 Abdominal Pain MDM MDM Narrative MDM Narrative:: 24-year-old female with no known medical history presents to the emergency room with a chief complaint of right upper abdominal pain and back pain x 3 days Patient is hemodynamically stable in no apparent distress Physical examination shows right upper quadrant abdominal tenderness with palpation. The patient has a positive Quigley sign An ultrasound of the gallbladder was completed and shows cholelithiasis but is negative for cholecystitis. Patient's lipase is elevated at 1175. Patient's bilirubin levels were elevated at 2.1. A CT of the abdomen and pelvis was completed and shows suspicion for cholecystitis as well as mild edema around the pancreas. Dr. Mcdaniel the paper coating machine operator on-call was consulted and his recommendations were to start the patient on some antibiotics and to do an MRCP to rule out any stone in the common bile duct. Dr. Douglas the general surgeon on-call was also consulted and a recommendation was also to do an MRCP. An MRCP was completed and there is a 4 mm stone in the common bile duct. Dr. Mcdaniel was then called in his recommendation was that he is going to call Dr. Burch to see if he is able to do an ERCP tomorrow morning. At this time the patient was signed out to my colleague pending a call from Dr. Mcdaniel as to whether to transfer the patient for an ERCP or to admit the patient here if we have somebody to do it tomorrow morning. The patient was signed out to my colleague AGUILA Dumont Patient data External records reviewed:: [facility] previous records Clinical information provided by:: patient Social determinants that could affect healthcare access:: none Patient has the following chronic illnesses:: No chronic illness How is presenting disease/condition affected by chronic disease/condition?: no chronic disease Evaluation data The following diagnostics were reviewed and interpreted by me:: lab results and radiology exam(s) Lab and/or radiology exams considered but not ordered:: Labs and radiology exams considered and ordered Interpretation Summary: Ultrasound gallbladder-indings: Gallbladder sludge Multiple tiny gallstones Gallbladder wall 0.3 cm no edema Common bile duct 0.3 cm Pancreas obscured by bowel gas Liver 14.5 cm smooth contour no focal liver lesions Normal hepatopetal portal venous flow Patent IVC IMPRESSION: Cholelithiasis, negative for cholecystitis CT abdomen pelvis-Findings: No focal liver or splenic lesions Gallstones Gallbladder wall appears thickened Suspicious for mild edema around the pancreas No renal or ureteral calculi No bowel obstruction Tiny fat-containing umbilical hernia Normal appendix No pelvic mass Minimal thickening urinary bladder wall Intact osseous structures IMPRESSION: Cholelithiasis, suspicious for cholecystitis Suspicious for mild edema around the pancreas Consider MRCP follow-up MRCP-Findings: Mild intrahepatic biliary tract dilatation Cholelithiasis, gallbladder wall thickening and edema 4 mm filling defect in the common bile duct coronal image 11 No pancreatic edema No splenomegaly No ascites Aorta normal size No hydronephrosis IMPRESSION: Acute calculus cholecystitis 4 mm stone in the common bile duct, consider ERCP follow-up Medications / Prescriptions Medications or Prescriptions considered but not ordered:: Medication Medication administrations:: Medication Administration History Acetaminophen (Acetaminophen 325 Mg Tablet) 650 mg PO Q6H PRN PRN Reason: Fever >101.5 Stop: 02/07/25 21:57 Acetaminophen (Acetaminophen 325 Mg Tablet) 650 mg PO Q6H PRN PRN Reason: PAIN SCALE 1-3 (mild Stop: 02/07/25 21:57 Heparin Sodium (Porcine) (Heparin Sod Inj 5000 Unit/Ml Vial) 5,000 unit SC BID ERASTO Stop: 01/23/25 08:59 Hydromorphone HCl (Hydromorphone Inj 2 Mg/Ml Vial) 1 mg IVP Q4H PRN PRN Reason: PAIN SCALE 4-10(Mod-Sev Stop: 01/13/25 21:57 Lactated Ringer's (Lactated Ringers) 1,000 mls @ 250 mls/hr IV .Q4H ERASTO Stop: 02/07/25 18:57 Last Admin: 01/09/25 05:35 Dose: 250 mls/hr Documented By: Infusion: 01/09/25 04:28 Dose: Infused Documented By: Admin: 01/09/25 00:28 Dose: 250 mls/hr Documented By: Infusion: 01/09/25 00:01 Dose: Infused Documented By: Admin: 01/08/25 20:01 Dose: 250 mls/hr Documented By: CANDACE Piperacillin/Tazobactam/Dextrose (Zosyn) 3.375 gm in 50 mls @ 12.5 mls/hr IV Q8HR ERASTO; Protocol Stop: 01/16/25 06:14 Levothyroxine Sodium (Levothyroxine Sodium 125 Mcg Tablet) 125 mcg PO ACBR ERASTO Stop: 02/08/25 05:59 Last Admin: 01/09/25 05:10 Dose: Not Given Documented By: TRACY Non-Admin Reason: NPO Ondansetron HCl (Ondansetron Inj 2 Mg/Ml Inj 2 Ml) 4 mg IVP Q6H PRN; Protocol PRN Reason: NAUSEA OR VOMITING Stop: 02/07/25 21:57 Discontinued Medications Diphenhydramine HCl (Diphenhydramine Inj 50 Mg/Ml Vial) 25 mg IVP X1 ONE Stop: 01/08/25 17:44 Last Admin: 01/08/25 18:17 Dose: 25 mg Documented By: GATO Sodium Chloride (Ns) 1,000 mls @ 999 mls/hr IV .Q1H1M ONE Stop: 01/08/25 10:34 Last Infusion: 01/08/25 10:57 Dose: Infused Documented By: Admin: 01/08/25 09:56 Dose: 999 mls/hr Documented By: GATO Piperacillin/Tazobactam/Dextrose (Zosyn) 3.375 gm in 50 mls @ 100 mls/hr IV X1 ONE; Protocol Stop: 01/08/25 16:55 Last Infusion: 01/08/25 17:36 Dose: Infused Documented By: Admin: 01/08/25 17:06 Dose: 100 mls/hr Documented By: GATO Lactated Ringer's (Lactated Ringers) 1,000 mls @ 999 mls/hr IV .Q1H1M ONE Stop: 01/08/25 17:27 Last Infusion: 01/08/25 20:01 Dose: Infused Documented By: Admin: 01/08/25 17:07 Dose: 999 mls/hr Documented By: TM Piperacillin/Tazobactam/Dextrose (Zosyn) 3.375 gm in 50 mls @ 100 mls/hr IV X1 ONE; Protocol Stop: 01/09/25 00:29 Last Admin: 01/09/25 00:48 Dose: 100 mls/hr Documented By: FF Morphine Sulfate (Morphine Sulf Inj 4 Mg/Ml Vial) 4 mg IVP X1 ONE Stop: 01/08/25 09:34 Last Admin: 01/08/25 09:56 Dose: 4 mg Documented By: TM Morphine Sulfate (Morphine Sulf Inj 4 Mg/Ml Vial) 4 mg IVP X1 ONE Stop: 01/08/25 11:06 Last Admin: 01/08/25 11:22 Dose: 4 mg Documented By: TM Ondansetron HCl (Ondansetron Inj 2 Mg/Ml Inj 2 Ml) 4 mg IVP X1 ONE; Protocol Stop: 01/08/25 09:34 Last Admin: 01/08/25 09:56 Dose: 4 mg Documented By: TM Ondansetron HCl (Ondansetron Inj 2 Mg/Ml Inj 2 Ml) 4 mg IVP X1 ONE; Protocol Stop: 01/08/25 11:06 Last Admin: 01/08/25 11:21 Dose: 4 mg Documented By: TM Pantoprazole Sodium (Pantoprazole Inj 40 Mg Vial) 40 mg IVP X1 ONE Stop: 01/08/25 16:27 Last Admin: 01/08/25 17:06 Dose: 40 mg Documented By: TM No medication given Consultations Consultation(s) initiated? (list below): Yes Consultation #1 (Physician, Specialty, Details): Dr. Douglas general surgeon on-call Time: 14:00 Consultation #2 (Physician, Specialty, Details): Dr. Mcdaniel paper coating machine operator on-call Time: 14:30 Diagnosis Differential diagnosis abdominal pain: abdominal pain, constipation, gastroenteritis and other (Cholelithiasis/cholecystitis/choledocholithiasis) Most likely diagnosis given after review of the tests above:: Choledocholithiasis/acute pancreatitis Admission Indicated Admission indicated?: not indicated Admission Request Was there a request for admission?: No Disposition Plan Disposition Plan: other (specify) (The patient was signed out to my colleague AGUILA Dumont) Discharge Plan Plan Patient Disposition: Admit Acute Care w/in Hospital Problem List Clinical Impression: Choledocholithiasis, Pancreatitis, Cholelithiasis, Abdominal pain, Transaminitis PA/PRACTICE SUPPORT SPECIALIST Supervising Physician PA/PRACTICE SUPPORT SPECIALIST Supervising Physician: Iftikhar Dumont ENP
[2025-01-08 07:27] LABS: Alanine Aminotransferase 299 U/L (10-49); Albumin, Serum 5.0 gm/dL (3.5-5.0); Albumin/Globulin Ratio 1.7 (1.2-2.2); Alkaline Phosphatase 793 U/L (46-116); Anion Gap 16 (7-16); Aspartate Amino Transferase 204 U/L (0-34); BUN/Creatinine Ratio 8 Ratio (12-20); Bilirubin,Total 2.1 mg/dL (0.3-1.2); Blood Urea Nitrogen 8 mg/dL (9-23); Calcium 9.7 mg/dL (8.3-10.6); Calcium (Corrected) 9.7 mg/dL (8.5-10.1); Carbon Dioxide 29.2 mMol/L (20.0-31.0); Chloride 96 mMol/L (98-107); Creatinine (Component) 1.0 mg/dL (0.6-1.3); Estimated Creatinine Clearance 76.3 mL/min (>60); Globulin 3.0 gm/dL (2.3-3.5); Glucose 76 mg/dL (74-106); Lipase 1175 U/L (12-53); Osmolality,Calculated 278 (275-295); Potassium 3.4 mMol/L (3.4-5.1); Sodium 141 mMol/L (136-145); Total Protein 8.0 gm/dL (5.7-8.2); eGFR > 60 See Note
--- NOTE | 2025-01-08 08:15 | XR_ITS ---
Examination: CT abdomen and pelvis without contrast. Coronal 3-D reconstructions. Sagittal 2-D reconstructions. Date and time of exam: January 08, 2025, 0837 hours INDICATIONS: Right upper abdominal pain beginning 3 days ago CTDI: vol (mGy): 9.80 DLP: (mGycm): 540 Technique: Axial images of the abdomen have been obtained, 3 mm slice thickness Intravenous contrast material has not been administered. Low dose protocols were performed. One or more of the following dose reduction techniques were used; automated exposure control, adjustment of the mA and/or KV according to patient size, use of iterative reconstruction technique. Findings: No focal liver or splenic lesions Gallstones Gallbladder wall appears thickened Suspicious for mild edema around the pancreas No renal or ureteral calculi No bowel obstruction Tiny fat-containing umbilical hernia Normal appendix No pelvic mass Minimal thickening urinary bladder wall Intact osseous structures IMPRESSION: Cholelithiasis, suspicious for cholecystitis Suspicious for mild edema around the pancreas Consider MRCP follow-up
[2025-01-08] MEDS: SODIUM CHLORIDE 0.9% 1000 ML 1,000 ML 999 ML IV (09:56)
[2025-01-08] MEDS: MORPHINE SULF INJ 4 MG/ML VIAL IVP ×2 (09:56→11:22)
[2025-01-08] MEDS: ONDANSETRON INJ 2 MG/ML INJ 2 ML 4 MG IVP ×2 (09:56→11:21)
--- NOTE | 2025-01-08 11:17 | PC.NURSE ---
PT STATED SHE FELT BETTER THEN SHE GOT A BAD PAIN OUT OF NO WHERE IN HER BACK, THIS RN REQUEST PAIN MED FOR PT, PROVIDER GAVE VERBAL TO ORDER 4 OF MORPHINE AND 4 OF ZOFRAN
[2025-01-08] MEDS: PIPER/TAZO 3.375 GM PREMIX 3.375 GM/50 ML BAG IV (17:06)
[2025-01-08] MEDS: RINGERS LACTATED 1000 ML 1,000 ML 999 ML IV (17:07)
--- NOTE | 2025-01-08 17:44 | PD.EDADULT ---
ED General RME/HPI General Chief complaint: Abdominal Pain Stated complaint: RIGHT UPPER ABD AND BACK PAIN, HIVES Time Seen by Provider: 01/08/25 03:51 Source: patient Arrival date/time: 01/08/25 03:16 Right upper back pain and epigastric pain. Please go see Melanie note regarding this patient for the same day same time. Mode of arrival: ambulatory Limitations: no limitations RME / HPI RME / HPI narrative: 01/08/25 03:16 This is a case of 34-year-old female who came into the emergency room due to right upper quadrant pain history of gallstones with nausea vomiting today worsening of the symptoms this patient decided to start consulted in the emergency room Exam: Tenderness right upper quadrant Impression: Abdominal pain Related Data Previous Rx's ?Medication ?Instructions ?Recorded vit,calcium no.40-iron 1 tab PO QDAY #30 tabs 04/07/24 fum 27 mg iron-folate no.1 1 mg tablet (PNV-Select) hydrocodone 5 mg-acetaminophen 325 1 tab PO Q6H PRN pain #20 tabs 12/05/24 mg tablet ibuprofen 600 mg tablet 600 mg PO Q6H PRN pain #30 tabs 12/05/24 amoxicillin 875 mg-potassium 1 tab PO BID #10 tabs 12/07/24 clavulanate 125 mg tablet ferrous sulfate 325 mg (65 mg 325 mg PO BID #60 tabs 12/07/24 iron) tablet levothyroxine 125 mcg capsule 125 mcg PO QDAY #90 caps 12/07/24 ondansetron 4 mg disintegrating 4 mg PO TID PRN nausea and 12/21/24 tablet vomiting 30 days #10 tabs oxycodone-acetaminophen 5 mg-325 2 tab PO Q8H PRN pain #20 tabs 12/21/24 mg tablet (Percocet) Allergies Allergy/AdvReac Type Severity Reaction Status Date / Time erythromycin base (From Allergy Verified 01/08/25 03:17 Erythrocin) Review of Systems Review of Systems Narrative Review of Systems: GEN: No fever, no chills, no weight loss EYES: No discharge, no visual changes, no pain HEENT: No ear pain, no congestion, no sore throat PULM: No shortness of breath, no cough, no congestion CV: No chest pain, no dyspnea on exertion, no palpitations GI: No nausea, no vomiting, no diarrhea, + pain, no constipation : No frequency, no urgency, no dysuria MUSC/SKEL: No joint pain, no back pain SKIN: No rash PSYCH: No hallucinations, no depression HEME/LYMPH: No easy bleeding or bruising tendencies NEURO: No weakness, no headache ED Exam Narrative Physical exam: [General: Obese in moderate discomfort but not in any acute distress Head normocephalic HEENT: Within acceptable limits Neck is supple nontender Chest equal chest rise nontender to palpation Respiratory: Clear to auscultation no wheezes crackles or rubs CV: Rate rhythm is regular no murmurs rubs or clicks Abdomen is distended secondary to body habitus epigastric right upper left upper quadrant tenderness with palpation. No reflexive guarding no rebound tenderness Back: No CVA tenderness no spinous process tenderness from cervical spine thoracic and lumbar spine Skin: Intact no petechiae rash induration ulceration or crepitus Extremities: Moving all extremity against resistance cap refill less than 2 seconds neurosensory intact Neuro: Awake alert oriented x3 Glascow coma 15 no focal deficits] General Limitations: Present no limitations General appearance: Present alert and in no apparent distress Course Course Course Narrative: Patient care assumed by me at 1745. The patient given 25 mg Benadryl IV for itch and hives that been ongoing for the past 2 days. Per report offer from Jaspreet, waiting for callback from Dr. Mcdaniel regarding Dr Go for possible ERCP at this facility after which the patient can be managed for pancreatitis. Patient's case discussed with Dr. Mcdaniel who states Dr. Dr Go is willing to do the ER see a patient in the morning the patient is to be n.p.o. on LR at 250 an hour and pain and nausea managed. Quality Measures none Orders Category Date Time Status Admit to Inpatient Status Routine Admission 01/08/25 21:58 Active Patient Condition Routine Admission 01/08/25 21:58 Ordered Decision to Admit X1 Care 01/08/25 19:42 Completed Flu & Pneumonia Vaccine Screen ONCE Care 01/08/25 22:03 Active Insert IV STAT Care 01/08/25 09:33 Active MRI Screening NOW Care 01/08/25 10:24 Active NPO NOW Care 01/08/25 16:27 Active NPO NOW Care 01/08/25 18:58 Active Notify provider NEEDED Care 01/08/25 21:58 Active Consult to Gastroenterology Stat Cons 01/08/25 17:37 Ordered Consult to Gastroenterology Stat Cons 01/08/25 18:52 Ordered Consult to General Surgery Stat Cons 01/08/25 17:37 Ordered Diet NPO (NOW) Diet 01/08/25 16:27 Completed Diet NPO (NOW) Diet 01/08/25 18:[address] abdomen pelvis wo con Stat Exams 01/08/25 08:15 Completed MR MRCP Stat Exams 01/08/25 Completed US gall bladder Stat Exams 01/08/25 03:50 Completed CBC AM DRAW Lab 01/09/25 05:00 Ordered CBC AM DRAW Lab 01/10/25 05:00 Ordered CBC AM DRAW Lab 01/11/25 05:00 Ordered CBC Stat Lab 01/08/25 06:18 Completed Comprehensive Metabolic Panel AM DRAW Lab 01/09/25 05:00 Ordered Comprehensive Metabolic Panel AM DRAW Lab 01/10/25 05:00 Ordered Comprehensive Metabolic Panel AM DRAW Lab 01/11/25 05:00 Ordered Comprehensive Metabolic Panel Stat Lab 01/08/25 06:18 Completed HCG Qualitative,Urine Stat Lab 01/08/25 04:33 Completed Lipase Stat Lab 01/08/25 06:18 Completed Lipid Panel AM DRAW Lab 01/09/25 05:00 Ordered Magnesium AM DRAW Lab 01/09/25 05:00 Ordered Magnesium AM DRAW Lab 01/10/25 05:00 Ordered Magnesium AM DRAW Lab 01/11/25 05:00 Ordered Phosphorous AM DRAW Lab 01/09/25 05:00 Ordered Phosphorous AM DRAW Lab 01/10/25 05:00 Ordered Phosphorous AM DRAW Lab 01/11/25 05:00 Ordered Prothrombin Time with INR AM DRAW Lab 01/09/25 05:00 Ordered Thyroid Stimulating Hormone AM DRAW Lab 01/09/25 05:00 Ordered Urinalysis Stat Lab 01/08/25 04:33 Completed Acetaminophen Tab [Tylenol Tab] Med 01/08/25 21:58 Active 650 mg PO Q6H PRN Acetaminophen Tab [Tylenol Tab] Med 01/08/25 21:58 Active 650 mg PO Q6H PRN DiphenhydrAMINE INJ [Benadryl Inj] Med 01/08/25 17:43 Discontinued 25 mg IVP X1 ONE HYDROmorphone INJ [Dilaudid Inj] Med 01/08/25 21:58 Active 1 mg IVP Q4H PRN Heparin Inj Med 01/09/25 09:00 Active 5,000 unit SC BID Morphine* Inj Med 01/08/25 09:33 Discontinued 4 mg IVP X1 ONE Morphine* Inj Med 01/08/25 11:05 Discontinued 4 mg IVP X1 ONE Ondansetron Inj [Zofran Inj] Med 01/08/25 21:58 Active 4 mg IVP Q6H PRN Ondansetron Inj [Zofran Inj] Med 01/08/25 09:33 Discontinued 4 mg IVP X1 ONE Ondansetron Inj [Zofran Inj] Med 01/08/25 11:05 Discontinued 4 mg IVP X1 ONE Pantoprazole Inj [Protonix Inj] Med 01/08/25 16:26 Discontinued 40 mg IVP X1 ONE Piper/Tazo 3.375 gm Premix [Zosyn] Med 01/08/25 16:26 Discontinued 3.375 gm in 50 ml IV X1 Piper/Tazo 3.375 gm Premix [Zosyn] Med 01/09/25 00:00 Active 3.375 gm in 50 ml IV X1 Piper/Tazo 3.375 gm Premix [Zosyn] 50 ml Med 01/08/25 22:05 Pending IV Q6HR Ringers Lactated 1000 ml [Lactated Ringers] 1,000 ml Med 01/08/25 18:58 Active IV 250 mls/hr Ringers Lactated 1000 ml [Lactated Ringers] 1,000 ml Med 01/08/25 16:27 Discontinued IV 999 mls/hr Sodium Chloride 0.9% 1000 ml [Ns] 1,000 ml Med 01/08/25 09:34 Discontinued IV 999 mls/hr Code Status Routine Oth 01/08/25 21:58 Ordered Vital Signs Vital signs: Vital Signs Temperature 98.7 F 01/08/25 03:44 Pulse Rate 88 01/08/25 03:44 Respiratory Rate 16 01/08/25 03:44 Blood Pressure 120/79 01/08/25 03:44 Pulse Oximetry (%) 98 01/08/25 03:44 Oxygen Delivery Method Room Air 01/08/25 03:44 Discharge Plan Prescriptions/Referrals Prescriptions/Med Rec: No Action PNV-Select 27-1 mg tablet 1 tab PO QDAY Qty: 30 1RF oxycodone-acetaminophen [Percocet] 5-325 mg tablet 2 tab PO Q8H MDD 6 PRN (Reason: pain) Qty: 20 0RF ondansetron 4 mg tablet,disintegrating 4 mg PO TID PRN (Reason: nausea and vomiting) 30 Days Qty: 10 0RF ibuprofen 600 mg tablet 600 mg PO Q6H PRN (Reason: pain) Qty: 30 0RF hydrocodone-acetaminophen 5-325 mg tablet 1 tab PO Q6H MDD 4 PRN (Reason: pain) Qty: 20 0RF amoxicillin-pot clavulanate 875-125 mg tablet 1 tab PO BID Qty: 10 0RF levothyroxine 125 mcg capsule 125 mcg PO QDAY Qty: 90 3RF ferrous sulfate 325 mg (65 mg iron) tablet 325 mg PO BID Qty: 60 1RF Referrals: Wesley Perez, [employer]Y HOUSE WORKER [Primary Care Provider] - In 1 week Problem List Clinical Impression: Choledocholithiasis, Pancreatitis, Cholelithiasis, Abdominal pain, Transaminitis Patient/Caregiver Discharge Instructions Print Language: Prydeinig Stand Alone Forms: [employer] Award Info., Patient Portal Info Letter PA/DRY HOUSE WORKER Supervising Physician PA/DRY HOUSE WORKER Supervising Physician: Iftikhar Dumont ENP [facility] Clinical Information Provided by: patient Medical Records reviewed [facility] Meds/Rx considered, not ordered None Labs/Rad/Tests considered, not ordered None Chronic Illness/Social Conditions which may negatively complicate care or outcome(s)-explain: None or not applicable EKG EKG not done Labs Labs: interpreted by az Lab(s) Interpretation(s): CBC shows no leukocytosis anemia thrombocytopenia CMP shows no significant electrolyte imbalances renal impairment. T. Bili at 2.1 note: Prior T. bili's were all within normal limits. Transaminitis AST 204 ALT 299 alk phos at 793. Lipase at 1175. Imaging Imaging interpretation: interpreted by [facility] Imaging Interpretation(s): MRCP shows 4 mm stone: Choledocholithiasis Gallbladder ultrasound shows cholelithiasis without cholecystitis CT shows pancreatic edema Medication Administration(s) none Medication Administration History Acetaminophen (Acetaminophen 325 Mg Tablet) 650 mg PO Q6H PRN PRN Reason: Fever >101.5 Stop: 02/07/25 21:57 Acetaminophen (Acetaminophen 325 Mg Tablet) 650 mg PO Q6H PRN PRN Reason: PAIN SCALE 1-3 (mild Stop: 02/07/25 21:57 Heparin Sodium (Porcine) (Heparin Sod Inj 5000 Unit/Ml Vial) 5,000 unit SC BID ERASTO Stop: 01/23/25 08:59 Hydromorphone HCl (Hydromorphone Inj 2 Mg/Ml Vial) 1 mg IVP Q4H PRN PRN Reason: PAIN SCALE 4-10(Mod-Sev Stop: 01/13/25 21:57 Lactated Ringer's (Lactated Ringers) 1,000 mls @ 250 mls/hr IV .Q4H ERASTO Stop: 02/07/25 18:57 Last Admin: 01/08/25 20:01 Dose: 250 mls/hr Documented By: CANDACE Piperacillin/Tazobactam/Dextrose (Zosyn) 50 mls @ 100 mls/hr IV Q6HR ERASTO; Protocol Stop: 01/15/25 22:04 Piperacillin/Tazobactam/Dextrose (Zosyn) 3.375 gm in 50 mls @ 100 mls/hr IV X1 ONE; Protocol Stop: 01/09/25 00:29 Ondansetron HCl (Ondansetron Inj 2 Mg/Ml Inj 2 Ml) 4 mg IVP Q6H PRN; Protocol PRN Reason: NAUSEA OR VOMITING Stop: 02/07/25 21:57 Discontinued Medications Diphenhydramine HCl (Diphenhydramine Inj 50 Mg/Ml Vial) 25 mg IVP X1 ONE Stop: 01/08/25 17:44 Last Admin: 01/08/25 18:17 Dose: 25 mg Documented By: GATO Sodium Chloride (Ns) 1,000 mls @ 999 mls/hr IV .Q1H1M ONE Stop: 01/08/25 10:34 Last Infusion: 01/08/25 10:57 Dose: Infused Documented By: Admin: 01/08/25 09:56 Dose: 999 mls/hr Documented By: GATO Piperacillin/Tazobactam/Dextrose (Zosyn) 3.375 gm in 50 mls @ 100 mls/hr IV X1 ONE; Protocol Stop: 01/08/25 16:55 Last Infusion: 01/08/25 17:36 Dose: Infused Documented By: Admin: 01/08/25 17:06 Dose: 100 mls/hr Documented By: TM Lactated Ringer's (Lactated Ringers) 1,000 mls @ 999 mls/hr IV .Q1H1M ONE Stop: 01/08/25 17:27 Last Infusion: 01/08/25 20:01 Dose: Infused Documented By: Admin: 01/08/25 17:07 Dose: 999 mls/hr Documented By: TM Morphine Sulfate (Morphine Sulf Inj 4 Mg/Ml Vial) 4 mg IVP X1 ONE Stop: 01/08/25 09:34 Last Admin: 01/08/25 09:56 Dose: 4 mg Documented By: TM Morphine Sulfate (Morphine Sulf Inj 4 Mg/Ml Vial) 4 mg IVP X1 ONE Stop: 01/08/25 11:06 Last Admin: 01/08/25 11:22 Dose: 4 mg Documented By: TM Ondansetron HCl (Ondansetron Inj 2 Mg/Ml Inj 2 Ml) 4 mg IVP X1 ONE; Protocol Stop: 01/08/25 09:34 Last Admin: 01/08/25 09:56 Dose: 4 mg Documented By: TM Ondansetron HCl (Ondansetron Inj 2 Mg/Ml Inj 2 Ml) 4 mg IVP X1 ONE; Protocol Stop: 01/08/25 11:06 Last Admin: 01/08/25 11:21 Dose: 4 mg Documented By: TM Pantoprazole Sodium (Pantoprazole Inj 40 Mg Vial) 40 mg IVP X1 ONE Stop: 01/08/25 16:27 Last Admin: 01/08/25 17:06 Dose: 40 mg Documented By: TM Diagnosis Differential Diagnosis ED Complaint MDM: Choledocholithiasis, pancreatitis, cholelithiasis
[2025-01-08] MEDS: RINGERS LACTATED 1000 ML 1,000 ML 250 ML IV (20:01)
--- NOTE | 2025-01-08 22:09 | ESHP_ITS ---
<Statement entered by Evangelista Al MD - 01/09/25 01:03> Patient was examined and case was reviewed with team including attending physician. Note reviewed, I agree with most of its contents and agree with the patient's care as documented by Dr. Guillen 24-year-old female with past medical history of hypothyroidism presented with epigastric pain radiating to the back as well as right upper quadrant pain since about 2 days ago. On labs patient was found to have elevated bilirubin as well as elevated transaminases and alk phos. Patient also found to have elevated lipase. Patient had imaging including MRCP which showed acute calculous cholecystitis with 4 mm stone in the common bile duct as well as edema around the pancreas. [employer] Dr. Mcdaniel and Dr. Burch were consulted. Dr. Mcdaniel spoke to Dr. Burch about performing ERCP which he agreed to perform on Wednesday. I personally called both gastroenterologists and are in agreement with the current plan for maintaining IV fluids at 250 cc/h, keep the patient n.p.o. for ERCP by Dr. Burch on Wednesday. Surgery was also consulted for possible cholecystectomy prior to disharge. Case discussed with my attending Dr.Alhalaibeh Evangelista Al MD PGY-2 Documentation for date of: 01/08/25 HPI History of Present Illness Chief complaint: Abdominal pain History of present illness: This is a 24-year-old female with past medical history of hypothyroidism presented to the ED with complaints of epigastric and right upper quadrant pain since 01/07 night. She describes this pain cramping type, 6 out of 10 on pain scale radiating to the back which is progressively worsening currently 7 out of 10 and associated with nausea and vomiting clear and bilious. She denies any fevers, diarrhea chills, hematemesis, melena burning micturition, urinary frequency, chest pain, shortness of breath, palpitation. She endorses occasional cough but denies any increased sputum. She also complains she have been having generalized itchiness all over her body since last 2 days. She had similar type of right upper quadrant pain on 12/19 and 12/21 after intake of fatty food which prompted her ED visit on the 12/21. At that time she was treated with morphine for her pain and she was told that she had gallstones. She followed with her PCP and in the due course of referral to the general surgeon. She had a on 12/06 and at that time her weight is around 208 lbs and today her weight is around 167 pounds. Today ED visit vitals initially BP 120/79, [place] 88, respirate 16, temperature 98.7 F, saturating 98% on room air Pertinent lab findings are total bilirubin 2.1, AST 294, ALT 299, ALP 793. Lipase 1175, urine looks turbid with urinary ketones 3+, urinary bilirubin 1+ Imaging findings MRCP shows acute calculous cholecystitis with 4 mm stone in Common bile duct, CT scan showing mild edema around the pancreas and cholelithiasis, abdominal gallbladder ultrasound showing cholelithiasis. Past medical history: Hypothyroidism takes levothyroxine 125 mcg. Prior hospitalization for cholelithiasis on 12/21 and discharged home on pain medications and currently in the process of referral to general surgeon. Past surgical history: on 12/06 Social history: Denies alcohol, smoking or any other drugs Family history: Noncontributory Allergic history: Allergic to erythromycin. Review of Systems Review of Systems Systems Reviewed: All systems reviewed, normal except as documented Exam Vital Signs Temp Pulse Resp BP Pulse Ox O2 Del Method 98.2 F 70 18 115/84 100 Room Air 01/08/25 21:47 01/08/25 21:47 01/08/25 21:47 01/08/25 21:47 01/08/25 21:47 01/08/25 11:55 Narrative Exam GENERAL: NAD, AAOx3 HEENT: Moist mucosa. Eyes open, symmetrical, & clear CARDIO:Regular rhythm Noted. No Murmurs. PULM: No noted coughing/dyspnea CTA B/L, no R/W/R GI: Abdomen soft, nondistended, Tenderness on palpation of RUQ and Epigastric region. SKIN/MSK/EXT: No wounds/amputations, no pain on palpation.No edema. Pedal pulses present B/L. Exocoriation jacinto over multiple areas from Itching NEURO: AAOx3, no focal neuro deficits, able to move all 4 extremities Results: Labs 01/09/25 04:53 01/09/25 04:53 Labs: Short CBC 01/08/25 Range/Units 06:18 WBC 7.0 (3.6-11.0) Thou/mm3 Hgb 12.6 (12.0-16.0) g/dL Hct 38.9 (36.0-46.0) % Plt Count 278 D (140-440) Thou/mm3 BMP 01/08/25 06:18 Sodium 141 Potassium 3.4 Chloride 96 L Carbon Dioxide 29.2 BUN 8 L Creatinine 1.0 Glucose 76 Calcium 9.7 Liver Function 01/08/25 Range/Units 06:18 Total Bilirubin 2.1 H (0.3-1.2) mg/dL AST 204 H (0-34) U/L ALT 299 H (10-49) U/L Alkaline Phosphatase 793 H (46-116) U/L Albumin 5.0 (3.5-5.0) gm/dL Urine 01/08/25 Range/Units 04:33 Urine Color Yellow (Lt Yel-Yel) Urine Clarity Turbid A (Clear/Hazy) Urine pH 5.5 (5.0-7.0) Ur Specific [place] 1.011 (1.001-1.035) Urine Protein Negative (Neg - Trace) Urine Glucose (UA) Negative (Negative) Quality Measures Quality Measures none Medications Home Medications and Allergies Allergies Allergy/AdvReac Type Severity Reaction Status Date / Time erythromycin base (From Allergy Verified 01/08/25 03:17 Erythrocin) Visit Medications Acetaminophen (Acetaminophen 325 Mg Tablet) 650 mg PO Q6H PRN PRN Reason: Fever >101.5 Stop: 02/07/25 21:57 Acetaminophen (Acetaminophen 325 Mg Tablet) 650 mg PO Q6H PRN PRN Reason: PAIN SCALE 1-3 (mild Stop: 02/07/25 21:57 Heparin Sodium (Porcine) (Heparin Sod Inj 5000 Unit/Ml Vial) 5,000 unit SC BID ERASTO Stop: 01/23/25 08:59 Hydromorphone HCl (Hydromorphone Inj 2 Mg/Ml Vial) 1 mg IVP Q4H PRN PRN Reason: PAIN SCALE 4-10(Mod-Sev Stop: 01/13/25 21:57 Lactated Ringer's (Lactated Ringers) 1,000 mls @ 250 mls/hr IV .Q4H ERASTO Stop: 02/07/25 18:57 Last Admin: 01/08/25 20:01 Dose: 250 mls/hr Piperacillin/Tazobactam/Dextrose (Zosyn) 50 mls @ 100 mls/hr IV Q6HR ERASTO; Protocol Stop: 01/15/25 22:04 Ondansetron HCl (Ondansetron Inj 2 Mg/Ml Inj 2 Ml) 4 mg IVP Q6H PRN; Protocol PRN Reason: NAUSEA OR VOMITING Stop: 02/07/25 21:57 Discontinued Medications Diphenhydramine HCl (Diphenhydramine Inj 50 Mg/Ml Vial) 25 mg IVP X1 ONE Stop: 01/08/25 17:44 Last Admin: 01/08/25 18:17 Dose: 25 mg Sodium Chloride (Ns) 1,000 mls @ 999 mls/hr IV .Q1H1M ONE Stop: 01/08/25 10:34 Last Infusion: 01/08/25 10:57 Dose: Infused Piperacillin/Tazobactam/Dextrose (Zosyn) 3.375 gm in 50 mls @ 100 mls/hr IV X1 ONE; Protocol Stop: 01/08/25 16:55 Last Infusion: 01/08/25 17:36 Dose: Infused Lactated Ringer's (Lactated Ringers) 1,000 mls @ 999 mls/hr IV .Q1H1M ONE Stop: 01/08/25 17:27 Last Infusion: 01/08/25 20:01 Dose: Infused Morphine Sulfate (Morphine Sulf Inj 4 Mg/Ml Vial) 4 mg IVP X1 ONE Stop: 01/08/25 09:34 Last Admin: 01/08/25 09:56 Dose: 4 mg Morphine Sulfate (Morphine Sulf Inj 4 Mg/Ml Vial) 4 mg IVP X1 ONE Stop: 01/08/25 11:06 Last Admin: 01/08/25 11:22 Dose: 4 mg Ondansetron HCl (Ondansetron Inj 2 Mg/Ml Inj 2 Ml) 4 mg IVP X1 ONE; Protocol Stop: 01/08/25 09:34 Last Admin: 01/08/25 09:56 Dose: 4 mg Ondansetron HCl (Ondansetron Inj 2 Mg/Ml Inj 2 Ml) 4 mg IVP X1 ONE; Protocol Stop: 01/08/25 11:06 Last Admin: 01/08/25 11:21 Dose: 4 mg Pantoprazole Sodium (Pantoprazole Inj 40 Mg Vial) 40 mg IVP X1 ONE Stop: 01/08/25 16:27 Last Admin: 01/08/25 17:06 Dose: 40 mg Assessment & Plan Plan This is a 24-year-old female with past medical history of hypothyroidism presented to the ED with complaints of epigastric and right upper quadrant pain since 01/07 night associated with nausea and vomiting. She was admitted for acute gallstone pancreatitis with choledocholithiasis. # Gallstone pancreatitis # Choledocholithiasis with CBD dilatation # Hyperbilirubinemia # Transaminitis History of 2 episodes of cholelithiasis pain earlier this month. Epigastric and right upper quadrant pain radiating to the back associated with nausea and vomiting Recent weight loss after . Total bilirubin 2.1, AST 294, ALT 299, ALP 793, lipase 1175 CT abdomen showing peripancreatic edema, MRCP showing acute cholecystitis with 4 mm stone in CBD along with CBD dilatation. Received 1 L of NS and 1 L Ringer lactate in ED -Started on Ringer lactate to 250 cc/h -Consulted Dr. burch?he said he is going to see her tomorrow and agreed to do the ERCP on wednesday -Consulted Dr. Mcdaniel -landmen -Consulted Dr. Celaya to see if any possible chance of cholecystectomy in this hospitalization. ?Starting on Zosyn 3.375 every 6 hours to reduce any possible infection. ?Starting on n.p.o. ?Continue to monitor for any worsening of symptoms or labs # Hypothyroidism -Continue her home medication levothyroxine 125mcg. Code status: Full DVT prophylaxis:Heparin Diet: NPO Pulido: None Lines: PIV Supplemental O2: none Disposition: Med-Tele I discussed this case with my senior Dr. Zhu and my attending Dr.Alhalaibeh Rebekah Guillen MD,PGY1
--- NOTE | 2025-01-08 22:59 | PD.IMCONS ---
HPI Data of Consult Requesting Physician: Gautam Grewal MD Primary Care Provider: KATTY Shah Consult Narrative Reason for consult: Pain abdomen abnormal LFTs elevated lipase abnormal imaging studies History of present illness: 24 years old female evaluated request of the ER team for evaluation of abnormal liver function test as well as pain abdomen epigastric going to the back with abnormal imaging studies showing cholelithiasis cholecystitis and MRCP showing a 4 mm stone with an elevated lipase of 1175 cc:: cc: Gautam Grewal MD Review of Systems Review of Systems Systems Reviewed: All systems reviewed, normal except as documented Meds Home Medications and Allergies Allergies Allergy/AdvReac Type Severity Reaction Status Date / Time erythromycin base (From Allergy Verified 01/08/25 03:17 Erythrocin) Exam Vital Signs Temp Pulse Resp BP Pulse Ox O2 Del Method 98.2 F 70 18 115/84 100 Room Air 01/08/25 21:47 01/08/25 21:47 01/08/25 21:47 01/08/25 21:47 01/08/25 21:47 01/08/25 11:55 Constitutional Comments: Chronically ill-appearing Routine Respiratory Exam Comments: Midepigastric right upper quadrant tenderness Results Labs 01/08/25 06:18 01/08/25 06:18 Labs: Short CBC 01/08/25 Range/Units 06:18 WBC 7.0 (3.6-11.0) Thou/mm3 Hgb 12.6 (12.0-16.0) g/dL Hct 38.9 (36.0-46.0) % Plt Count 278 D (140-440) Thou/mm3 BMP 01/08/25 06:18 Sodium 141 Potassium 3.4 Chloride 96 L Carbon Dioxide 29.2 BUN 8 L Creatinine 1.0 Glucose 76 Calcium 9.7 Liver Function 01/08/25 Range/Units 06:18 Total Bilirubin 2.1 H (0.3-1.2) mg/dL AST 204 H (0-34) U/L ALT 299 H (10-49) U/L Alkaline Phosphatase 793 H (46-116) U/L Albumin 5.0 (3.5-5.0) gm/dL Urine 01/08/25 Range/Units 04:33 Urine Color Yellow (Lt Yel-Yel) Urine Clarity Turbid A (Clear/Hazy) Urine pH 5.5 (5.0-7.0) Ur Specific [place] 1.011 (1.001-1.035) Urine Protein Negative (Neg - Trace) Urine Glucose (UA) Negative (Negative) Assessment and Plan Additional Assessment & Plan Additional Plan: Acute gallstone pancreatitis Choledocholithiasis with cholelithiasis and cholecystitis Plan Admit the patient Ringer's lactate at 250 cc an hour Broad-spectrum antibiotics Keep patient n.p.o. Surgical consultation Spoke with Dr. Burch he will see the patient and possibly perform an ERCP on Wednesday Patient will need cholecystectomy prior to discharge Prognosis is guarded Thank you very much for the opportunity to participate in the care of this patient
[2025-01-08 23:42] LABS: Triglycerides 114 mg/dL (30-150)
[2025-01-09] VITALS (8 sets, daily range): BP systolic 92–128; BP diastolic 58–81; PULSE 67–89; RESP 14–18; TEMP 36.2–36.9; O2SAT 95–99; BMI 35.4
[2025-01-09] MEDS: RINGERS LACTATED 1000 ML 1,000 ML 250 ML IV ×6 (00:28→23:49)
[2025-01-09] MEDS: PIPER/TAZO 3.375 GM PREMIX 3.375 GM/50 ML BAG IV ×4 (00:48→21:29)
[2025-01-09 05:47] LABS: Basophils # (Auto) 0.0 Thou/mm3 (0.0-0.2); Basophils % (Auto) 0 % (0-2.5); Eosinophils # (Auto) 0.3 Thou/mm3 (0.0-0.5); Eosinophils % (Auto) 5 % (0-10); Hematocrit 35.5 % (36.0-46.0); Hemoglobin 11.4 g/dL (12.0-16.0); Immature Granulocytes Auto 0.02 Thou/mm3 (0.00-0.00); Lymphocytes # (Auto) 0.7 Thou/mm3 (1.0-4.8); Lymphocytes % (Auto) 11 % (10-50); Mean Corpuscular HGB Conc 32.1 g/dl (31.0-37.0); Mean Corpuscular Hemoglobin 29.7 pg (25.0-35.0); Mean Corpuscular Volume 92 fL (80-100); Monocytes # (Auto) 0.7 Thou/mm3 (0.0-0.8); Monocytes % (Auto) 11 % (0-12); Neutrophils # (Auto) 4.3 Thou/mm3 (1.8-7.7); Neutrophils % (Auto) 73 % (37-80); Nucleated Red Blood Cell # 0.00 Thou/mm3 (0.00-0.00); Nucleated Red Blood Cell % 0 /100 WBC (0); Platelet Count 188 Thou/mm3 (140-440); RDW Standard Deviation 49.1 fL (36.4-46.3); Red Blood Count 3.84 Miln/mm3 (4.00-5.20); White Blood Count 5.9 Thou/mm3 (3.6-11.0)
[2025-01-09 05:59] LABS: INR 1.3 (0.9-1.3); Prothrombin Time 13.4 Seconds (9.0-12.2)
[2025-01-09 06:25] LABS: Alanine Aminotransferase 459 U/L (10-49); Albumin, Serum 3.8 gm/dL (3.5-5.0); Albumin/Globulin Ratio 1.6 (1.2-2.2); Alkaline Phosphatase 784 U/L (46-116); Anion Gap 17 (7-16); Aspartate Amino Transferase 519 U/L (0-34); BUN/Creatinine Ratio 6 Ratio (12-20); Bilirubin,Total 2.6 mg/dL (0.3-1.2); Blood Urea Nitrogen < 5 mg/dL (9-23); Calcium 8.7 mg/dL (8.3-10.6); Calcium (Corrected) 8.9 mg/dL (8.5-10.1); Carbon Dioxide 24.1 mMol/L (20.0-31.0); Cardiac Risk Estimate 5.4 RATIO (3.7-5.6); Chloride 103 mMol/L (98-107); Cholesterol 194 mg/dL (132-200); Creatinine (Component) 0.9 mg/dL (0.6-1.3); Estimated Creatinine Clearance 87.1 mL/min (>60); Globulin 2.4 gm/dL (2.3-3.5); Glucose 72 mg/dL (74-106); HDL Cholesterol 36 mg/dL (40-60); LDL Cholesterol,Calculated 135 mg/dL (0-130); Magnesium 1.7 mg/dL (1.6-2.6); Osmolality,Calculated 283 (275-295); Phosphorous 3.7 mg/dL (2.4-5.1); Potassium 3.9 mMol/L (3.4-5.1); Sodium 144 mMol/L (136-145); Thyroid Stimulating Hormone 3.56 uIU/mL (0.55-4.78); Total Protein 6.2 gm/dL (5.7-8.2); Triglycerides 113 mg/dL (30-150); eGFR > 60 See Note
[2025-01-09 08:10] LABS: Lactate (Lactic Acid) 0.8 mMol/L (0.4-2.0)
[2025-01-09] MEDS: HEPARIN SOD INJ 5000 UNIT/ML VIAL SC ×2 (09:15→21:29)
[2025-01-09] MEDS: ACETAMINOPHEN 325 MG TABLET 650 MG PO ×2 (09:27→21:32)
[2025-01-09] MEDS: HYDROmorphone INJ 2 MG/ML VIAL 1 MG IVP (10:59)
--- NOTE | 2025-01-09 13:39 | PC.SS ---
SS met with patient regarding her d/c plan. Pt is alert/oriented. Pt was admitted for Acute Pancreatitis. Pt confirmed demographic and contact information is correct on facesheet. Pt resides with family (boyfriend, grandmother, son, sister, brother, and dad). Pt ambulates independently without assistance or DME. Pt is ok with all ADLs. Patient named her boyfriend, Betito Mayo medical decision maker if she is unable. Patient?s choice is to return home upon d/c. Pt states she is not diabetic and is not on dialysis. Family will provide transportation home. D/C plan: Return home Next of Kin: Betito Gael, boyfriend, phone# [phone] PCP: [facility] Address: Correct on facesheet
--- NOTE | 2025-01-09 13:41 | ESPR_ITS ---
<Statement entered by Jeaninne Zacarias MD - 01/09/25 16:13> 24-year-old female without past medical history was admitted for acute pancreatitis secondary to choledocholithiasis requiring urgent ERCP. Patient was seen and examined at bedside. Still endorses pain, which was controlled with morphine. Labs revealed worsening liver panel, AST is 519, ALT 459, ALP 784, T. bili 2.6. Will continue currently symptomatic management with aggressive IV hydration, LR 250 mL/h, continue broad-spectrum antibiotics, keep patient n.p.o., pending ERCP by Dr. Burch, hopefully early tomorrow, surgery is following the case patient is scheduled for cholecystectomy on Wednesday. Continue symptomatic management, follow-up with GI and surgery recommendations. I discussed with and supervised the internal audit manager physician who took care of this patient. I personally saw and examined the patient and discussed the assessment and plan with the entire medicine team, including my attending , I agree with the assessment and plan as documented below Jeannine Zacarias M.D. PGY-3 Disclaimer: Despite multiple revisions, due to the dictation software being used, the document bellow may not be free of grammatical errors including phonetic/typographic errors. However, this does not deter from our commitment to providing health care in the patient's best interest in mind. Documentation for date of: 01/09/25 Subjective Subjective Interval history: The patient was seen and examined at the bedside. The patient continues to report pain, which is adequately controlled with morphine. Lab results show worsening liver function tests: AST 519, ALT 459, ALP 784, and total bilirubin 2.6. Plan is to continue current symptomatic management, including IV hydration with LR at 150 mL/hr and broad-spectrum antibiotics. The patient will remain NPO pending ERCP by Dr. Burch, planned for early tomorrow. General surgery is following; cholecystectomy is scheduled for Wednesday. Will continue supportive care and follow up on gastroenterology and surgical recommendations. Exam Vital Signs Temp Pulse Resp BP Pulse Ox O2 Del Method 97.5 F 86 15 98/58 L 95 Room Air 01/09/25 12:00 01/09/25 12:00 01/09/25 12:00 01/09/25 12:00 01/09/25 12:00 01/09/25 12:00 Narrative Exam General: No acute distress; alert and oriented ?3. HEENT: Mucous membranes moist; eyes open, symmetrical, and clear. Cardiovascular: Regular rate and rhythm; no murmurs, rubs, or gallops. Pulmonary: Clear to auscultation bilaterally; no rales, wheezes, or rhonchi; no cough or dyspnea observed. Gastrointestinal: Abdomen soft, nondistended; tenderness to palpation in the right upper quadrant and epigastric region; no rebound or guarding. Skin/MSK/Extremities: No wounds or amputations; no tenderness to palpation; no edema. Pedal pulses palpable bilaterally. Multiple excoriation jacinto noted secondary to itching. Neurological: AAOx3; no focal neurological deficits; moves all four extremities spontaneously. Objective Labs 01/10/25 05:09 01/10/25 05:09 Labs: Laboratory Results - last 24 hr 01/08/25 01/09/25 01/09/25 23:15 04:53 07:42 WBC 5.9 RBC 3.84 L Hgb 11.4 L Hct 35.5 L MCV 92 MCH 29.7 MCHC 32.1 RDW Std Deviation 49.1 H Plt Count 188 D Neut % (Auto) 73 Lymph % (Auto) 11 [place] % (Auto) 11 Eos % (Auto) 5 Baso % (Auto) 0 Neut # (Auto) 4.3 Lymph # (Auto) 0.7 L [place] # (Auto) 0.7 Eos # (Auto) 0.3 Baso # (Auto) 0.0 Immature Gran # (Auto) 0.02 H Absolute Nucleated RBC 0.00 Immature Gran % 0 Nucleated RBC % 0 PT 13.4 H INR 1.3 Sodium 144 Potassium 3.9 D Chloride 103 Carbon Dioxide 24.1 Anion Gap 17 H BUN < 5 L Creatinine 0.9 Estim Creat Clear Calc 87.1 eGFR > 60 BUN/Creatinine Ratio 6 L Glucose 72 L Calculated Osmolality 283 Lactic Acid 0.8 Calcium 8.7 Corrected Calcium 8.9 Phosphorus 3.7 Magnesium 1.7 Total Bilirubin 2.6 H D AST 519 H* ALT 459 H Alkaline Phosphatase 784 H Total Protein 6.2 Albumin 3.8 D Globulin 2.4 Albumin/Globulin Ratio 1.6 Triglycerides 114 113 Cholesterol 194 LDL Cholesterol, Calc 135 H HDL Cholesterol 36 L Cholesterol/HDL Ratio 5.4 TSH 3.56 Quality Measures Quality Measures none Assessment & Plan Assessment Current Active Medications: Generic Name Dose Route Start Last Admin Trade Name Freq PRN Reason Stop Dose Admin Acetaminophen 650 mg 01/08/25 21:58 Acetaminophen 325 Mg Tablet PO 02/07/25 21:57 Q6H PRN Fever >101.5 Acetaminophen 650 mg 01/08/25 21:58 01/09/25 09:27 Acetaminophen 325 Mg Tablet PO 02/07/25 21:57 650 mg Q6H PRN Administration PAIN SCALE 1-3 (mild Heparin Sodium (Porcine) 5,000 unit 01/09/25 09:00 01/09/25 09:15 Heparin Sod Inj 5000 Unit/Ml Vial SC 01/23/25 08:59 5,000 unit BID ERASTO Administration Hydromorphone HCl 1 mg 01/08/25 21:58 01/09/25 10:59 Hydromorphone Inj 2 Mg/Ml Vial IVP 01/13/25 21:57 1 mg Q4H PRN Administration PAIN SCALE 4-10(Mod-Sev Lactated Ringer's 1,000 mls @ 250 mls/hr 01/08/25 18:58 01/09/25 13:18 Lactated Ringers IV 02/07/25 18:57 250 mls/hr .Q4H ERASTO Administration Piperacillin/Tazobactam/Dextrose 3.375 gm in 50 mls @ 12.5 mls/hr 01/09/25 06:15 01/09/25 13:18 Zosyn IV 01/16/25 06:14 12.5 mls/hr Q8HR ERASTO Administration Protocol Levothyroxine Sodium 125 mcg 01/09/25 06:00 01/09/25 05:10 Levothyroxine Sodium 125 Mcg Tablet PO 02/08/25 05:59 Not Given ACBR ERASTO Ondansetron HCl 4 mg 01/08/25 21:58 Ondansetron Inj 2 Mg/Ml Inj 2 Ml IVP 02/07/25 21:57 Q6H PRN NAUSEA OR VOMITING Protocol Plan 24-year-old female with past medical history of hypothyroidism presented to the ED with complaints of epigastric and right upper quadrant pain since 01/07 night associated with nausea and vomiting. She was admitted for acute gallstone pancreatitis with choledocholithiasis and acut cholecystitis #Choledocholithiasis with CBD dilatation #Gallstone pancreatitis #Cholecystitis #Hyperbilirubinemia #Transaminitis Patient with history of two prior episodes of biliary colic earlier this month, now presenting with epigastric and right upper quadrant pain radiating to the back, associated with nausea and vomiting. Recent weight loss following . Labs notable for: T. bili 2.1, AST 294, ALT 299, ALP 793, lipase 1175. Imaging: CT abdomen showing peripancreatic edema; MRCP revealing acute cholecystitis with a 4 mm CBD stone and CBD dilatation. ED course: Received 1 L NS and 1 L LR. Received 1 L of NS and 1 L Ringer lactate in ED Plan: -Remain NPO -Continue Ringer's lactate to 150 cc/h -Dr. Burch to do the ERCP on 01/10 -Consulted Dr. Mcdaniel -rod and tube straightener, see recs -Dr. Celaya to do cholecystectomy on 01/12 ?Contiue Zosyn 3.375 every 6 hours to reduce any possible infection ?Continue to monitor for any worsening of symptoms or labs #Hypothyroidism -Continue her home medication levothyroxine 125mcg when not NPO Health Maintence: Code status: Full DVT prophylaxis:Heparin Diet: NPO Disposition: Med-Tele Case discussed with my attending Dr. Armstrong, and senior resident, Dr. Deann Bruno MD PGY-1 Attending Provider Attestation/Addendum I have examined the patient, reviewed labs and imaging findings, discussed the case with the resident(s), and reviewed entered orders. I agree with the plan of care as outlined in this note, with these additional summaries/recommendations: Patient seen at bedside. No acute overnight events. Patient admitted for acute cholecystitis, choledocholithiasis, acute pancreatitis, and transaminitis. Today patient reports her pain is relatively controlled with current regimen. Her LFTs have now doubled in the last 24 hours most likely secondary to choledocholithiasis. No evidence of cholangitis at this time. Pending ERCP via gastroenterology. Continue IV fluids and IV antibiotic. Patient will require ERCP and cholecystectomy. We will monitor for any signs of synthetic liver dysfunction. Avoid hepatotoxic agents. As needed Zofran. Continue home levothyroxine. Patient updated on the plan and in agreement. All questions answered to satisfaction. Please see residents note for additional details and management. Dr. Nathaniel MD
[2025-01-09 13:57] LABS: Lactate (Lactic Acid) 0.7 mMol/L (0.4-2.0)
[2025-01-09 14:03] LABS: Basophils # (Auto) 0.0 Thou/mm3 (0.0-0.2); Basophils % (Auto) 0 % (0-2.5); Eosinophils # (Auto) 0.4 Thou/mm3 (0.0-0.5); Eosinophils % (Auto) 6 % (0-10); Hematocrit 32.7 % (36.0-46.0); Hemoglobin 10.7 g/dL (12.0-16.0); Immature Granulocytes Auto 0.02 Thou/mm3 (0.00-0.00); Lymphocytes # (Auto) 1.1 Thou/mm3 (1.0-4.8); Lymphocytes % (Auto) 17 % (10-50); Mean Corpuscular HGB Conc 32.7 g/dl (31.0-37.0); Mean Corpuscular Hemoglobin 29.6 pg (25.0-35.0); Mean Corpuscular Volume 90 fL (80-100); Monocytes # (Auto) 0.7 Thou/mm3 (0.0-0.8); Monocytes % (Auto) 12 % (0-12); Neutrophils # (Auto) 4.0 Thou/mm3 (1.8-7.7); Neutrophils % (Auto) 64 % (37-80); Nucleated Red Blood Cell # 0.00 Thou/mm3 (0.00-0.00); Nucleated Red Blood Cell % 0 /100 WBC (0); Platelet Count 241 Thou/mm3 (140-440); RDW Standard Deviation 48.8 fL (36.4-46.3); Red Blood Count 3.62 Miln/mm3 (4.00-5.20); White Blood Count 6.2 Thou/mm3 (3.6-11.0)
--- NOTE | 2025-01-09 14:22 | PD.RESCONSUL ---
HPI Data of Consult Requesting Physician: Saturnino Armstrong MD Admitting Provider: Gautam Grewal MD Attending Provider: Saturnino Armstrong MD Primary Care Provider: KATTY Shah Consult Narrative History of present illness: Niles Chavez is a 24 yo female with a past medical history of hypothyroidism here for a 4mm gall stone in the common bile duct and cholelithiasis. Initially upon admission, she was experiencing excrutiating RUQ pain that radiates to the back that was exacerbated by a fast food meal. Her pain is being managed well and reports an overall 1/10 pain currently. She does not report any unexpected weight loss, fevers, or chills, NVD, but admits to fatigue. She has not had a bowel movement since 01/05, reports minimal flatus, and does not have any urge to defecate. She is in good spirits and is ready for her ERCP and cholecystectomy procedures. cc:: cc: Saturnino Armstrong MD Past Medical History Family History OTHER FAMILY HX: Grandmother - breast cancer Surgical History OTHER SURGICAL HX: section - 2024 Exam Vital Signs Temp Pulse Resp BP Pulse Ox O2 Del Method 97.5 F 86 15 98/58 L 95 Room Air 01/09/25 12:00 01/09/25 12:00 01/09/25 12:00 01/09/25 12:00 01/09/25 12:00 01/09/25 12:00 Routine Abdominal Exam Abdominal: Present soft and surgical scars ( c/d/i); Absent rebound, guarding or organomegaly Results Labs 01/09/25 13:25 01/09/25 04:53 Labs: Short CBC 01/09/25 01/09/25 Range/Units 04:53 13:25 WBC 5.9 6.2 (3.6-11.0) Thou/mm3 Hgb 11.4 L 10.7 L (12.0-16.0) g/dL Hct 35.5 L 32.7 L (36.0-46.0) % Plt Count 188 D 241 D (140-440) Thou/mm3 BMP 01/09/25 04:53 Sodium 144 Potassium 3.9 D Chloride 103 Carbon Dioxide 24.1 BUN < 5 L Creatinine 0.9 Glucose 72 L Calcium 8.7 Liver Function 01/09/25 Range/Units 04:53 Total Bilirubin 2.6 H D (0.3-1.2) mg/dL AST 519 H* (0-34) U/L ALT 459 H (10-49) U/L Alkaline Phosphatase 784 H (46-116) U/L Albumin 3.8 D (3.5-5.0) gm/dL Quality Measures Quality Measures none Medications Home Medications and Allergies Allergies Allergy/AdvReac Type Severity Reaction Status Date / Time erythromycin base (From Allergy Verified 01/08/25 03:17 Erythrocin) Visit Medications Acetaminophen (Acetaminophen 325 Mg Tablet) 650 mg PO Q6H PRN PRN Reason: Fever >101.5 Stop: 02/07/25 21:57 Acetaminophen (Acetaminophen 325 Mg Tablet) 650 mg PO Q6H PRN PRN Reason: PAIN SCALE 1-3 (mild Stop: 02/07/25 21:57 Last Admin: 01/09/25 09:27 Dose: 650 mg Heparin Sodium (Porcine) (Heparin Sod Inj 5000 Unit/Ml Vial) 5,000 unit SC BID ERASTO Stop: 01/23/25 08:59 Last Admin: 01/09/25 09:15 Dose: 5,000 unit Hydromorphone HCl (Hydromorphone Inj 2 Mg/Ml Vial) 1 mg IVP Q4H PRN PRN Reason: PAIN SCALE 4-10(Mod-Sev Stop: 01/13/25 21:57 Last Admin: 01/09/25 10:59 Dose: 1 mg Lactated Ringer's (Lactated Ringers) 1,000 mls @ 250 mls/hr IV .Q4H ERASTO Stop: 02/07/25 18:57 Last Admin: 01/09/25 13:18 Dose: 250 mls/hr Piperacillin/Tazobactam/Dextrose (Zosyn) 3.375 gm in 50 mls @ 12.5 mls/hr IV Q8HR ERASTO; Protocol Stop: 01/16/25 06:14 Last Admin: 01/09/25 13:18 Dose: 12.5 mls/hr Levothyroxine Sodium (Levothyroxine Sodium 125 Mcg Tablet) 125 mcg PO ACBR ERASTO Stop: 02/08/25 05:59 Last Admin: 01/09/25 05:10 Dose: Not Given Ondansetron HCl (Ondansetron Inj 2 Mg/Ml Inj 2 Ml) 4 mg IVP Q6H PRN; Protocol PRN Reason: NAUSEA OR VOMITING Stop: 02/07/25 21:57 Discontinued Medications Diphenhydramine HCl (Diphenhydramine Inj 50 Mg/Ml Vial) 25 mg IVP X1 ONE Stop: 01/08/25 17:44 Last Admin: 01/08/25 18:17 Dose: 25 mg Sodium Chloride (Ns) 1,000 mls @ 999 mls/hr IV .Q1H1M ONE Stop: 01/08/25 10:34 Last Infusion: 01/08/25 10:57 Dose: Infused Piperacillin/Tazobactam/Dextrose (Zosyn) 3.375 gm in 50 mls @ 100 mls/hr IV X1 ONE; Protocol Stop: 01/08/25 16:55 Last Infusion: 01/08/25 17:36 Dose: Infused Lactated Ringer's (Lactated Ringers) 1,000 mls @ 999 mls/hr IV .Q1H1M ONE Stop: 01/08/25 17:27 Last Infusion: 01/08/25 20:01 Dose: Infused Piperacillin/Tazobactam/Dextrose (Zosyn) 3.375 gm in 50 mls @ 100 mls/hr IV X1 ONE; Protocol Stop: 01/09/25 00:29 Last Admin: 01/09/25 00:48 Dose: 100 mls/hr Lactated Ringer's (Lactated Ringers) 1,000 mls @ 250 mls/hr IV .Q4H ERASTO Stop: 02/08/25 07:29 Last Admin: 01/09/25 09:16 Dose: Not Given Morphine Sulfate (Morphine Sulf Inj 4 Mg/Ml Vial) 4 mg IVP X1 ONE Stop: 01/08/25 09:34 Last Admin: 01/08/25 09:56 Dose: 4 mg Morphine Sulfate (Morphine Sulf Inj 4 Mg/Ml Vial) 4 mg IVP X1 ONE Stop: 01/08/25 11:06 Last Admin: 01/08/25 11:22 Dose: 4 mg Ondansetron HCl (Ondansetron Inj 2 Mg/Ml Inj 2 Ml) 4 mg IVP X1 ONE; Protocol Stop: 01/08/25 09:34 Last Admin: 01/08/25 09:56 Dose: 4 mg Ondansetron HCl (Ondansetron Inj 2 Mg/Ml Inj 2 Ml) 4 mg IVP X1 ONE; Protocol Stop: 01/08/25 11:06 Last Admin: 01/08/25 11:21 Dose: 4 mg Pantoprazole Sodium (Pantoprazole Inj 40 Mg Vial) 40 mg IVP X1 ONE Stop: 01/08/25 16:27 Last Admin: 01/08/25 17:06 Dose: 40 mg
--- NOTE | 2025-01-09 14:36 | ESCONSULT_ITS ---
HPI Data of Consult Requesting Physician: Saturnino Armstrong MD Admitting Provider: Gautam Grewal MD Attending Provider: Saturnino Armstrong MD Primary Care Provider: KATTY Shah Consult Narrative History of present illness: Niles Chavez is a 24 yo female with a past medical history of hypothyroidism here for a 4mm gallstone obstructing the common bile duct and cholelithiasis. Upon admission, she was experiencing severe RUQ pain that radiated to the back that was exacerbated by a fast food meal. Since then her pain as been managed well, only reporting general discomfort and a 1/10 RUQ pain. She reports not having a bowel movement since 01/05 with minimal flatus. Pt reports a similar episode of pain a few weeks ago for which she went to ER with findings of cholelithiasis for which she was referred for outpatient follow up. She denies NVD, unexpected weight loss, fevers, chills, but admits to fatigue. Overall she is in good spirits and is ready for her ERCP and cholecystectomy procedures so she can return home to her 1 month old child. cc:: cc: Saturnino Armstrong MD Review of Systems Review of Systems Systems Reviewed: All systems reviewed, normal except as documented Past Medical History Family History OTHER FAMILY HX: Grandmother - breast cancer Surgical History OTHER SURGICAL HX: section - 2024 Exam Vital Signs Temp Pulse Resp BP Pulse Ox O2 Del Method 97.5 F 86 15 98/58 L 95 Room Air 01/09/25 12:00 01/09/25 12:00 01/09/25 12:00 01/09/25 12:00 01/09/25 12:00 01/09/25 12:00 Constitutional Constitutional: no acute distress Routine Abdominal Exam Abdominal: Present soft, tenderness (mild) and surgical scars ( c/d/i); Absent guarding, rigid or organomegaly Results Labs 01/09/25 13:25 01/09/25 04:53 Labs: Short CBC 01/09/25 01/09/25 Range/Units 04:53 13:25 WBC 5.9 6.2 (3.6-11.0) Thou/mm3 Hgb 11.4 L 10.7 L (12.0-16.0) g/dL Hct 35.5 L 32.7 L (36.0-46.0) % Plt Count 188 D 241 D (140-440) Thou/mm3 BMP 01/09/25 04:53 Sodium 144 Potassium 3.9 D Chloride 103 Carbon Dioxide 24.1 BUN < 5 L Creatinine 0.9 Glucose 72 L Calcium 8.7 Liver Function 01/09/25 Range/Units 04:53 Total Bilirubin 2.6 H D (0.3-1.2) mg/dL AST 519 H* (0-34) U/L ALT 459 H (10-49) U/L Alkaline Phosphatase 784 H (46-116) U/L Albumin 3.8 D (3.5-5.0) gm/dL Imaging and Cardiology US - abdomen: Status: image reviewed by me MRI - abdomen: Status: image reviewed by ia Quality Measures Quality Measures none Medications Home Medications and Allergies Allergies Allergy/AdvReac Type Severity Reaction Status Date / Time erythromycin base (From Allergy Verified 01/08/25 03:17 Erythrocin) Visit Medications Acetaminophen (Acetaminophen 325 Mg Tablet) 650 mg PO Q6H PRN PRN Reason: Fever >101.5 Stop: 02/07/25 21:57 Acetaminophen (Acetaminophen 325 Mg Tablet) 650 mg PO Q6H PRN PRN Reason: PAIN SCALE 1-3 (mild Stop: 02/07/25 21:57 Last Admin: 01/09/25 09:27 Dose: 650 mg Heparin Sodium (Porcine) (Heparin Sod Inj 5000 Unit/Ml Vial) 5,000 unit SC BID [facility] Stop: 01/23/25 08:59 Last Admin: 01/09/25 09:15 Dose: 5,000 unit Hydromorphone HCl (Hydromorphone Inj 2 Mg/Ml Vial) 1 mg IVP Q4H PRN PRN Reason: PAIN SCALE 4-10(Mod-Sev Stop: 01/13/25 21:57 Last Admin: 01/09/25 10:59 Dose: 1 mg Lactated Ringer's (Lactated Ringers) 1,000 mls @ 250 mls/hr IV .Q4H ERASTO Stop: 02/07/25 18:57 Last Admin: 01/09/25 13:18 Dose: 250 mls/hr Piperacillin/Tazobactam/Dextrose (Zosyn) 3.375 gm in 50 mls @ 12.5 mls/hr IV Q8HR ERASTO; Protocol Stop: 01/16/25 06:14 Last Admin: 01/09/25 13:18 Dose: 12.5 mls/hr Levothyroxine Sodium (Levothyroxine Sodium 125 Mcg Tablet) 125 mcg PO ACBR ERASTO Stop: 02/08/25 05:59 Last Admin: 01/09/25 05:10 Dose: Not Given Ondansetron HCl (Ondansetron Inj 2 Mg/Ml Inj 2 Ml) 4 mg IVP Q6H PRN; Protocol PRN Reason: NAUSEA OR VOMITING Stop: 02/07/25 21:57 Discontinued Medications Diphenhydramine HCl (Diphenhydramine Inj 50 Mg/Ml Vial) 25 mg IVP X1 ONE Stop: 01/08/25 17:44 Last Admin: 01/08/25 18:17 Dose: 25 mg Sodium Chloride (Ns) 1,000 mls @ 999 mls/hr IV .Q1H1M ONE Stop: 01/08/25 10:34 Last Infusion: 01/08/25 10:57 Dose: Infused Piperacillin/Tazobactam/Dextrose (Zosyn) 3.375 gm in 50 mls @ 100 mls/hr IV X1 ONE; Protocol Stop: 01/08/25 16:55 Last Infusion: 01/08/25 17:36 Dose: Infused Lactated Ringer's (Lactated Ringers) 1,000 mls @ 999 mls/hr IV .Q1H1M ONE Stop: 01/08/25 17:27 Last Infusion: 01/08/25 20:01 Dose: Infused Piperacillin/Tazobactam/Dextrose (Zosyn) 3.375 gm in 50 mls @ 100 mls/hr IV X1 ONE; Protocol Stop: 01/09/25 00:29 Last Admin: 01/09/25 00:48 Dose: 100 mls/hr Lactated Ringer's (Lactated Ringers) 1,000 mls @ 250 mls/hr IV .Q4H ERASTO Stop: 02/08/25 07:29 Last Admin: 01/09/25 09:16 Dose: Not Given Morphine Sulfate (Morphine Sulf Inj 4 Mg/Ml Vial) 4 mg IVP X1 ONE Stop: 01/08/25 09:34 Last Admin: 01/08/25 09:56 Dose: 4 mg Morphine Sulfate (Morphine Sulf Inj 4 Mg/Ml Vial) 4 mg IVP X1 ONE Stop: 01/08/25 11:06 Last Admin: 01/08/25 11:22 Dose: 4 mg Ondansetron HCl (Ondansetron Inj 2 Mg/Ml Inj 2 Ml) 4 mg IVP X1 ONE; Protocol Stop: 01/08/25 09:34 Last Admin: 01/08/25 09:56 Dose: 4 mg Ondansetron HCl (Ondansetron Inj 2 Mg/Ml Inj 2 Ml) 4 mg IVP X1 ONE; Protocol Stop: 01/08/25 11:06 Last Admin: 01/08/25 11:21 Dose: 4 mg Pantoprazole Sodium (Pantoprazole Inj 40 Mg Vial) 40 mg IVP X1 ONE Stop: 01/08/25 16:27 Last Admin: 01/08/25 17:06 Dose: 40 mg Assessment & Plan Assessment 24F with hypothyroidism, Csection 1mo ago presenting with abdominal pain, findings of gallstone pancreatitis and choledocholithiasis. I explained to the patient that after ERCP, we will continue to trend her labs and monitor her pain and tenderness. As long as labs are going in the right direction and she remains with minimal pain and tenderness, I will plan on cholecystectomy as soon as Friday 01/12. I explained benefits/risks of surgery including need for conversion to open, bleeding, infection, injury to nearby structures requiring additional procedures which could mean major biliary reconstruction in another hospital, as well as postoperative hernia and diarrhea. All questions were answered and patient is agreeable to proceeding OK from my standpoint for CLD, NPO after MN for ERCP Pending clinical course and labs will plan on lap falguni as soon as 01/12 at 730am
--- NOTE | 2025-01-09 15:08 | PD.IMCONS ---
HPI Data of Consult Requesting Physician: Saturnino Armstrong MD Primary Care Provider: KATTY Shah Consult Narrative History of present illness: Chief complaint: Abdominal pain History of presenting illness: Patient is a 24-year-old patient with history of obesity here with gallstone pancreatitis, MRCP showed choledocholithiasis. GI was called to evaluate the patient for ERCP. Patient was seen and examined today does not have cholangitis. It is notable today patient was admitted for gallstone pancreatitis more than 24 hours ago. No other associated symptoms at this time. cc:: cc: Saturnino Armstrong MD Review of Systems Review of Systems Narrative Review of Systems: All 12 systems reviewed and negative except positive pertinent symptoms in general history of present illness Meds Home Medications and Allergies Allergies Allergy/AdvReac Type Severity Reaction Status Date / Time erythromycin base (From Allergy Verified 01/08/25 03:17 Erythrocin) Exam Vital Signs Temp Pulse Resp BP Pulse Ox O2 Del Method 97.5 F 86 15 98/58 L 95 Room Air 01/09/25 12:00 01/09/25 12:00 01/09/25 12:00 01/09/25 12:00 01/09/25 12:00 01/09/25 12:00 Routine Abdominal Exam Comments: Abdominal exam benign mild tenderness right upper quadrant. Results Labs 01/09/25 13:25 01/09/25 04:53 Labs: Short CBC 01/09/25 01/09/25 Range/Units 04:53 13:25 WBC 5.9 6.2 (3.6-11.0) Thou/mm3 Hgb 11.4 L 10.7 L (12.0-16.0) g/dL Hct 35.5 L 32.7 L (36.0-46.0) % Plt Count 188 D 241 D (140-440) Thou/mm3 BMP 01/09/25 04:53 Sodium 144 Potassium 3.9 D Chloride 103 Carbon Dioxide 24.1 BUN < 5 L Creatinine 0.9 Glucose 72 L Calcium 8.7 Liver Function 01/09/25 Range/Units 04:53 Total Bilirubin 2.6 H D (0.3-1.2) mg/dL AST 519 H* (0-34) U/L ALT 459 H (10-49) U/L Alkaline Phosphatase 784 H (46-116) U/L Albumin 3.8 D (3.5-5.0) gm/dL Assessment and Plan Additional Assessment & Plan Additional Plan: Assessment: Gallstone pancreatitis Choledocholithiasis confirmed by MRCP Plan of care: Proceed with LR 250 cc/h Agree with Zosyn Keep the patient n.p.o. at midnight Check CRP tomorrow Check LFTs tomorrow Will proceed with ERCP tomorrow Thank typographical explained to the patient patient verbalized understanding willing to proceed Will follow the patient with results.
[2025-01-09 16:27] LABS: C-Reactive Protein 3.3 mg/dL (0.0-0.9)
[2025-01-09] MEDS: RINGERS LACTATED 1000 ML 1,000 ML 150 ML IV (17:49)
--- NOTE | 2025-01-09 20:27 | PD.IMPROG ---
Documentation for date of: 01/09/25 Subjective Subjective Interval history: Worsening LFTs ERCP scheduled for tomorrow Continue IV Zosyn Exam Vital Signs Temp Pulse Resp BP Pulse Ox O2 Del Method 97.1 F 67 15 92/64 96 Room Air 01/09/25 16:00 01/09/25 16:00 01/09/25 16:00 01/09/25 16:00 01/09/25 16:00 01/09/25 16:00 Objective Labs 01/09/25 13:25 01/09/25 04:53 Labs: Laboratory Results - last 24 hr 01/08/25 01/09/25 01/09/25 23:15 04:53 07:42 WBC 5.9 RBC 3.84 L Hgb 11.4 L Hct 35.5 L MCV 92 MCH 29.7 MCHC 32.1 RDW Std Deviation 49.1 H Plt Count 188 D Neut % (Auto) 73 Lymph % (Auto) 11 [place] % (Auto) 11 Eos % (Auto) 5 Baso % (Auto) 0 Neut # (Auto) 4.3 Lymph # (Auto) 0.7 L [place] # (Auto) 0.7 Eos # (Auto) 0.3 Baso # (Auto) 0.0 Immature Gran # (Auto) 0.02 H Absolute Nucleated RBC 0.00 Immature Gran % 0 Nucleated RBC % 0 PT 13.4 H INR 1.3 Sodium 144 Potassium 3.9 D Chloride 103 Carbon Dioxide 24.1 Anion Gap 17 H BUN < 5 L Creatinine 0.9 Estim Creat Clear Calc 87.1 eGFR > 60 BUN/Creatinine Ratio 6 L Glucose 72 L Calculated Osmolality 283 Lactic Acid 0.8 Calcium 8.7 Corrected Calcium 8.9 Phosphorus 3.7 Magnesium 1.7 Total Bilirubin 2.6 H D AST 519 H* ALT 459 H Alkaline Phosphatase 784 H C-Reactive Prot, Quant 3.3 H Total Protein 6.2 Albumin 3.8 D Globulin 2.4 Albumin/Globulin Ratio 1.6 Triglycerides 114 113 Cholesterol 194 LDL Cholesterol, Calc 135 H HDL Cholesterol 36 L Cholesterol/HDL Ratio 5.4 TSH 3.56 01/09/25 13:25 WBC 6.2 RBC 3.62 L Hgb 10.7 L Hct 32.7 L MCV 90 MCH 29.6 MCHC 32.7 RDW Std Deviation 48.8 H Plt Count 241 D Neut % (Auto) 64 Lymph % (Auto) 17 [place] % (Auto) 12 Eos % (Auto) 6 Baso % (Auto) 0 Neut # (Auto) 4.0 Lymph # (Auto) 1.1 [place] # (Auto) 0.7 Eos # (Auto) 0.4 Baso # (Auto) 0.0 Immature Gran # (Auto) 0.02 H Absolute Nucleated RBC 0.00 Immature Gran % 0 Nucleated RBC % 0 PT INR Sodium Potassium Chloride Carbon Dioxide Anion Gap BUN Creatinine Estim Creat Clear Calc eGFR BUN/Creatinine Ratio Glucose Calculated Osmolality Lactic Acid 0.7 Calcium Corrected Calcium Phosphorus Magnesium Total Bilirubin AST ALT Alkaline Phosphatase C-Reactive Prot, Quant Total Protein Albumin Globulin Albumin/Globulin Ratio Triglycerides Cholesterol LDL Cholesterol, Calc HDL Cholesterol Cholesterol/HDL Ratio TSH Impressions Impression: Acute cholecystitis due to cholelithiasis Choledocholithiasis Abnormal LFTs due to CBD obstruction Continue current management ERCP tomorrow Assessment & Plan A&P Narrative Assessment: Gallstone pancreatitis Choledocholithiasis confirmed by MRCP Plan of care: Proceed with LR 250 cc/h Agree with Zosyn Keep the patient n.p.o. at midnight Check CRP tomorrow Check LFTs tomorrow Will proceed with ERCP tomorrow Thank typographical explained to the patient patient verbalized understanding willing to proceed Will follow the patient with results. Time Spent With Patient Time: Total time spent is greater than 50% in coordination of care (as documented) at patient's floor/unit and/or counseling patient:
[2025-01-10] VITALS (16 sets, daily range): BP systolic 95–124; BP diastolic 59–95; PULSE 60–88; RESP 13–97; TEMP 36.3–36.8; O2SAT 95–100
[2025-01-10] MEDS: HYDROmorphone INJ 2 MG/ML VIAL 1 MG IVP ×2 (01:47→10:23)
[2025-01-10] MEDS: RINGERS LACTATED 1000 ML 1,000 ML 250 ML IV ×4 (01:48→15:18)
[2025-01-10] MEDS: PIPER/TAZO 3.375 GM PREMIX 3.375 GM/50 ML BAG IV ×3 (05:24→22:12)
[2025-01-10] MEDS: LEVOTHYROXINE SODIUM 125 MCG TABLET PO (05:25)
[2025-01-10 05:43] LABS: Basophils # (Auto) 0.0 Thou/mm3 (0.0-0.2); Basophils % (Auto) 0 % (0-2.5); Eosinophils # (Auto) 0.4 Thou/mm3 (0.0-0.5); Eosinophils % (Auto) 7 % (0-10); Hematocrit 33.0 % (36.0-46.0); Hemoglobin 10.7 g/dL (12.0-16.0); Immature Granulocytes Auto 0.01 Thou/mm3 (0.00-0.00); Lymphocytes # (Auto) 1.1 Thou/mm3 (1.0-4.8); Lymphocytes % (Auto) 20 % (10-50); Mean Corpuscular HGB Conc 32.4 g/dl (31.0-37.0); Mean Corpuscular Hemoglobin 29.6 pg (25.0-35.0); Mean Corpuscular Volume 91 fL (80-100); Monocytes # (Auto) 0.5 Thou/mm3 (0.0-0.8); Monocytes % (Auto) 9 % (0-12); Neutrophils # (Auto) 3.5 Thou/mm3 (1.8-7.7); Neutrophils % (Auto) 63 % (37-80); Nucleated Red Blood Cell # 0.00 Thou/mm3 (0.00-0.00); Nucleated Red Blood Cell % 0 /100 WBC (0); Platelet Count 233 Thou/mm3 (140-440); RDW Standard Deviation 49.8 fL (36.4-46.3); Red Blood Count 3.61 Miln/mm3 (4.00-5.20); White Blood Count 5.6 Thou/mm3 (3.6-11.0)
[2025-01-10 06:16] LABS: Alanine Aminotransferase 426 U/L (10-49); Albumin, Serum 3.4 gm/dL (3.5-5.0); Albumin/Globulin Ratio 1.7 (1.2-2.2); Alkaline Phosphatase 730 U/L (46-116); Anion Gap 16 (7-16); Aspartate Amino Transferase 351 U/L (0-34); BUN/Creatinine Ratio 7 Ratio (12-20); Bilirubin,Direct 1.1 mg/dL (0.0-0.3); Bilirubin,Total 1.7 mg/dL (0.3-1.2); Blood Urea Nitrogen < 5 mg/dL (9-23); C-Reactive Protein 3.9 mg/dL (0.0-0.9); Calcium 8.2 mg/dL (8.3-10.6); Calcium (Corrected) 8.7 mg/dL (8.5-10.1); Carbon Dioxide 25.3 mMol/L (20.0-31.0); Chloride 101 mMol/L (98-107); Creatinine (Component) 0.7 mg/dL (0.6-1.3); Estimated Creatinine Clearance 112.0 mL/min (>60); Globulin 2.0 gm/dL (2.3-3.5); Glucose 68 mg/dL (74-106); Magnesium 1.4 mg/dL (1.6-2.6); Osmolality,Calculated 278 (275-295); Phosphorous 4.0 mg/dL (2.4-5.1); Potassium 3.3 mMol/L (3.4-5.1); Sodium 142 mMol/L (136-145); Total Protein 5.4 gm/dL (5.7-8.2); eGFR > 60 See Note
[2025-01-10] MEDS: ONDANSETRON INJ 2 MG/ML INJ 2 ML 4 MG IVP (07:31)
[2025-01-10] MEDS: HEPARIN SOD INJ 5000 UNIT/ML VIAL SC ×2 (08:19→20:04)
[2025-01-10] MEDS: Magnesium Sulfate 4 GM Ivpb 4 GM/50 ML BAG IV (09:23)
[2025-01-10] MEDS: POTASSIUM CHL 10 mEq IVPB 10 MEQ/100 ML BAG 100 MEQ IV (09:23)
--- NOTE | 2025-01-10 10:02 | PC.SS ---
Follow up note: ERCP today. Pt will return home upon dc.
[2025-01-10] MEDS: POTASSIUM CHL 10 mEq IVPB 10 MEQ/100 ML BAG 75 MEQ IV ×3 (10:16→14:33)
--- NOTE | 2025-01-10 10:28 | ESPR_ITS ---
<Statement entered by Jeannine Zacarias MD - 01/10/25 18:45> Patient was seen and examined at bedside. No acute overnight event. Labs and vitals were reviewed. Patient has scheduled ERCP planned today, will follow-up after procedure. Pending cholecystectomy by Dr. Douglas this Wednesday. Will follow- up with further recs I discussed with and supervised the internal audit consultant physician who took care of this patient. I personally saw and examined the patient and discussed the assessment and plan with the entire medicine team, including my attending , I agree with the assessment and plan as documented below Jeannine Zacarias M.D. PGY-3 Disclaimer: Despite multiple revisions, due to the dictation software being used, the document bellow may not be free of grammatical errors including phonetic/typographic errors. However, this does not deter from our commitment to providing health care in the patient's best interest in mind. Documentation for date of: 01/10/25 Subjective Subjective Interval history: The patient was seen and examined at the bedside with no acute events overnight. Labs and vital signs were reviewed. The patient underwent ERCP today, during which one stone was removed and a biliary stent was placed. A repeat ERCP needs to be done in 9 to 12 days to remove the stent. The patient will continue with lactated Ringer?s at 250 cc/hr for the next 24 to 48 hours and complete a 7-day course of antibiotics. Follow-up at Dr. Burch's office in 4 to 8 weeks. A cholecystectomy is scheduled with Dr. Douglas for this Wednesday. Exam Vital Signs Temp Pulse Resp BP Pulse Ox O2 Del Method 97.8 F 84 17 122/80 97 Room Air 01/10/25 08:00 01/10/25 08:00 01/10/25 08:00 01/10/25 08:00 01/10/25 08:00 01/10/25 08:00 Narrative Exam General: No acute distress; alert and oriented ?3. HEENT: Mucous membranes moist; eyes open, symmetrical, and clear. Cardiovascular: Regular rate and rhythm; no murmurs, rubs, or gallops. Pulmonary: Clear to auscultation bilaterally; no rales, wheezes, or rhonchi; no cough or dyspnea observed. Gastrointestinal: Abdomen soft, nondistended; tenderness to palpation in the right upper quadrant and epigastric region; no rebound or guarding. Skin/MSK/Extremities: No wounds or amputations; no tenderness to palpation; no edema. Pedal pulses palpable bilaterally. Multiple excoriation jacinto noted secondary to itching. Neurological: AAOx3; no focal neurological deficits; moves all four extremities spontaneously. Objective Labs 01/11/25 05:38 01/11/25 05:38 Labs: Laboratory Results - last 24 hr 01/09/25 01/09/25 01/10/25 04:53 13:25 05:09 WBC 6.2 5.6 RBC 3.62 L 3.61 L Hgb 10.7 L 10.7 L Hct 32.7 L 33.0 L MCV 90 91 MCH 29.6 29.6 MCHC 32.7 32.4 RDW Std Deviation 48.8 H 49.8 H Plt Count 241 D 233 Neut % (Auto) 64 63 Lymph % (Auto) 17 20 [place] % (Auto) 12 9 Eos % (Auto) 6 7 Baso % (Auto) 0 0 Neut # (Auto) 4.0 3.5 Lymph # (Auto) 1.1 1.1 [place] # (Auto) 0.7 0.5 Eos # (Auto) 0.4 0.4 Baso # (Auto) 0.0 0.0 Immature Gran # (Auto) 0.02 H 0.01 H Absolute Nucleated RBC 0.00 0.00 Immature Gran % 0 0 Nucleated RBC % 0 0 Sodium 142 Potassium 3.3 L D Chloride 101 Carbon Dioxide 25.3 Anion Gap 16 BUN < 5 L Creatinine 0.7 Estim Creat Clear Calc 112.0 eGFR > 60 BUN/Creatinine Ratio 7 L Glucose 68 L Calculated Osmolality 278 Lactic Acid 0.7 Calcium 8.2 L Corrected Calcium 8.7 Phosphorus 4.0 Magnesium 1.4 L Total Bilirubin 1.7 H D Direct Bilirubin 1.1 H AST 351 H ALT 426 H Alkaline Phosphatase 730 H D C-Reactive Prot, Quant 3.3 H 3.9 H Total Protein 5.4 L Albumin 3.4 L Globulin 2.0 L Albumin/Globulin Ratio 1.7 Quality Measures Quality Measures none Assessment & Plan Assessment Current Active Medications: Generic Name Dose Route Start Last Admin Trade Name Freq PRN Reason Stop Dose Admin Acetaminophen 650 mg 01/08/25 21:58 01/09/25 21:32 Acetaminophen 325 Mg Tablet PO 02/07/25 21:57 650 mg Q6H PRN Administration Fever >101.5 Acetaminophen 650 mg 01/08/25 21:58 01/09/25 09:27 Acetaminophen 325 Mg Tablet PO 02/07/25 21:57 650 mg Q6H PRN Administration PAIN SCALE 1-3 (mild Heparin Sodium (Porcine) 5,000 unit 01/09/25 09:00 01/10/25 08:19 Heparin Sod Inj 5000 Unit/Ml Vial SC 01/23/25 08:59 5,000 unit BID ERASTO Administration Hydromorphone HCl 1 mg 01/08/25 21:58 01/10/25 10:23 Hydromorphone Inj 2 Mg/Ml Vial IVP 01/13/25 21:57 1 mg Q4H PRN Administration PAIN SCALE 4-10(Mod-Sev Piperacillin/Tazobactam/Dextrose 3.375 gm in 50 mls @ 12.5 mls/hr 01/09/25 06:15 01/10/25 05:24 Zosyn IV 01/16/25 06:14 12.5 mls/hr Q8HR ERASTO Administration Protocol Lactated Ringer's 1,000 mls @ 250 mls/hr 01/09/25 18:52 01/10/25 07:44 Lactated Ringers IV 02/08/25 18:51 250 mls/hr .Q4H ERASTO Administration Potassium Chloride 10 meq in 100 mls @ 100 mls/hr 01/10/25 08:45 01/10/25 10:16 Kcl Ivpb IV 01/10/25 12:44 100 mls/hr Q1H ERASTO Administration Magnesium Sulfate 4 gm in 50 mls @ 12.5 mls/hr 01/10/25 08:38 01/10/25 09:23 Magnesium Sulfate Ivpb IV 01/10/25 12:37 12.5 mls/hr X1 ONE Administration Levothyroxine Sodium 125 mcg 01/09/25 06:00 01/10/25 05:25 Levothyroxine Sodium 125 Mcg Tablet PO 02/08/25 05:59 125 mcg ACBR ERASTO Administration Ondansetron HCl 4 mg 01/08/25 21:58 01/10/25 07:31 Ondansetron Inj 2 Mg/Ml Inj 2 Ml IVP 02/07/25 21:57 4 mg Q6H PRN Administration NAUSEA OR VOMITING Protocol Plan 24-year-old female with past medical history of hypothyroidism presented to the ED with complaints of epigastric and right upper quadrant pain since 01/07 night associated with nausea and vomiting. She was admitted for acute gallstone pancreatitis with choledocholithiasis and acute cholecystitis. #Choledocholithiasis with CBD dilatation #Gallstone pancreatitis #Cholecystitis #Hyperbilirubinemia, improving #Transaminitis, improving LFTs improving 01/10: The patient underwent ERCP today, during which one stone was removed and a biliary stent was placed. A repeat ERCP needs to be done in 9 to 12 days to remove the stent. The patient will continue with lactated Ringer?s at 250 cc/hr for the next 24 to 48 hours and complete a 7-day course of antibiotics. Plan: -Remain NPO -Continue Ringer's lactate to 250 cc/h -Repeat ERCP needs to be done in 9 to 12 days to remove the stent -Consulted Dr. Mcdaniel, silk crepe machine operator, see recs -Dr. Celaya to do cholecystectomy on 01/12 ?Contiue Zosyn 3.375 every 6 hours to reduce any possible infection, complete 7- day course per GI rec ?Continue to monitor for any worsening of symptoms or labs #Hypothyroidism -Continue her home medication levothyroxine 125mcg when not NPO Health Maintence: Code status: Full DVT prophylaxis:Heparin Diet: NPO Disposition: Med-Tele Case discussed with my attending Dr. Armstrong, and senior resident, Dr. Deann Bruno MD PGY-1 Attending Provider Attestation/Addendum I have examined the patient, reviewed labs and imaging findings, discussed the case with the resident(s), and reviewed entered orders. I agree with the plan of care as outlined in this note, with these additional summaries/recommendations: Patient seen at bedside. No acute overnight events although does endorse poor sleep. She request to start diet although discussed she will go for ERCP today with gastroenterology for choledocholithiasis. Today patient reports her pain is relatively controlled with current regimen. Significant transaminitis still present. No evidence of cholangitis at this time. Pending ERCP via gastroenterology. Continue IV fluids and IV antibiotic. Patient will require cholecystectomy prior to discharge. We will monitor for any signs of synthetic liver dysfunction. Avoid hepatotoxic agents. As needed Zofran. Continue home levothyroxine. Patient updated on the plan and in agreement. All questions answered to satisfaction. Please see residents note for additional details and management. Dr. Nathaniel MD
[2025-01-10] MEDS: INDOMETHACIN 50 MG SUPP 100 MG PR ×2 (15:24→16:43)
--- NOTE | 2025-01-10 15:27 | PD.RESPRO ---
Documentation for date of: 01/10/25 Subjective Subjective Interval history: Patient is tolerating being NPO well in preparation for her ERCP tomorrow and cholecystectomy on 01/12. She is not in any distress and does not have any complaints or concerns. There was one minor episode of emesis in the morning which she attributes to her nerves since the nausea had passed after vomiting. She was finally able to have her first bowel movement since 01/05, which included liquid and formed stool. She denies dyschezia or hematochezia, but admits to floating stool. Exam Vital Signs Temp Pulse Resp BP Pulse Ox O2 Del Method 97.8 F 78 18 117/78 99 Room Air 01/10/25 11:37 01/10/25 11:37 01/10/25 11:37 01/10/25 11:37 01/10/25 11:37 01/10/25 11:37 Objective Labs 01/10/25 05:09 01/10/25 05:09 Labs: Laboratory Results - last 24 hr 01/09/25 01/10/25 04:53 05:09 WBC 5.6 RBC 3.61 L Hgb 10.7 L Hct 33.0 L MCV 91 MCH 29.6 MCHC 32.4 RDW Std Deviation 49.8 H Plt Count 233 Neut % (Auto) 63 Lymph % (Auto) 20 [place] % (Auto) 9 Eos % (Auto) 7 Baso % (Auto) 0 Neut # (Auto) 3.5 Lymph # (Auto) 1.1 [place] # (Auto) 0.5 Eos # (Auto) 0.4 Baso # (Auto) 0.0 Immature Gran # (Auto) 0.01 H Absolute Nucleated RBC 0.00 Immature Gran % 0 Nucleated RBC % 0 Sodium 142 Potassium 3.3 L D Chloride 101 Carbon Dioxide 25.3 Anion Gap 16 BUN < 5 L Creatinine 0.7 Estim Creat Clear Calc 112.0 eGFR > 60 BUN/Creatinine Ratio 7 L Glucose 68 L Calculated Osmolality 278 Calcium 8.2 L Corrected Calcium 8.7 Phosphorus 4.0 Magnesium 1.4 L Total Bilirubin 1.7 H D Direct Bilirubin 1.1 H AST 351 H ALT 426 H Alkaline Phosphatase 730 H D C-Reactive Prot, Quant 3.3 H 3.9 H Total Protein 5.4 L Albumin 3.4 L Globulin 2.0 L Albumin/Globulin Ratio 1.7 Quality Measures Quality Measures none Assessment & Plan Assessment Current Active Medications: Generic Name Dose Route Start Last Admin Trade Name Freq PRN Reason Stop Dose Admin Acetaminophen 650 mg 01/08/25 21:58 01/09/25 21:32 Acetaminophen 325 Mg Tablet PO 02/07/25 21:57 650 mg Q6H PRN Administration Fever >101.5 Acetaminophen 650 mg 01/08/25 21:58 01/09/25 09:27 Acetaminophen 325 Mg Tablet PO 02/07/25 21:57 650 mg Q6H PRN Administration PAIN SCALE 1-3 (mild Heparin Sodium (Porcine) 5,000 unit 01/09/25 09:00 01/10/25 08:19 Heparin Sod Inj 5000 Unit/Ml Vial SC 01/23/25 08:59 5,000 unit BID ERASTO Administration Hydromorphone HCl 1 mg 01/08/25 21:58 01/10/25 10:23 Hydromorphone Inj 2 Mg/Ml Vial IVP 01/13/25 21:57 1 mg Q4H PRN Administration PAIN SCALE 4-10(Mod-Sev Piperacillin/Tazobactam/Dextrose 3.375 gm in 50 mls @ 12.5 mls/hr 01/09/25 06:15 01/10/25 14:34 Zosyn IV 01/16/25 06:14 12.5 mls/hr Q8HR ERASTO Administration Protocol Lactated Ringer's 1,000 mls @ 250 mls/hr 01/09/25 18:52 01/10/25 15:18 Lactated Ringers IV 02/08/25 18:51 250 mls/hr .Q4H ERASTO Administration Levothyroxine Sodium 125 mcg 01/09/25 06:00 01/10/25 05:25 Levothyroxine Sodium 125 Mcg Tablet PO 02/08/25 05:59 125 mcg ACBR ERASTO Administration Ondansetron HCl 4 mg 01/08/25 21:58 01/10/25 07:31 Ondansetron Inj 2 Mg/Ml Inj 2 Ml IVP 02/07/25 21:57 4 mg Q6H PRN Administration NAUSEA OR VOMITING Protocol
--- NOTE | 2025-01-10 16:04 | XR_ITS ---
EXAMINATION: ERCP Fluoroscopy 16 spot fluoroscopic abdomen films Date and time: January 10, 2025, 1840 hours INDICATIONS: Right upper abdominal pain 3 days, acute calculus cholecystitis, 4 mm stone in the common bile duct on MRCP July 09, 2024 TECHNIQUE AND FINDINGS: Contrast opacification of the biliary tree Fluoroscopy 35.4 seconds 16 spot fluoroscopic films radiation dose 1.97 mGy Final film demonstrates a biliary stent in satisfactory position IMPRESSION: ERCP as above
--- NOTE | 2025-01-10 16:40 | PC.NURSE ---
Pt refused to
[2025-01-10] MEDS: RINGERS LACTATED 1000 ML 1,000 ML 125 ML IV (16:54)
--- NOTE | 2025-01-10 18:10 | ESPR_ITS ---
Documentation for date of: 01/10/25 Subjective Subjective Interval history: Patient was seen and examined pre and post ERCP procedure tolerated procedure very well 1 stone was removed. Exam Vital Signs Temp Pulse Resp BP Pulse Ox O2 Del Method 98.2 F 84 17 114/75 98 Room Air 01/10/25 16:43 01/10/25 16:00 01/10/25 16:00 01/10/25 16:00 01/10/25 16:00 01/10/25 16:00 Routine Abdominal Exam Comments: Abdominal exam benign pre and postprocedure Objective Labs 01/10/25 05:09 01/10/25 05:09 Labs: Laboratory Results - last 24 hr 01/10/25 05:09 WBC 5.6 RBC 3.61 L Hgb 10.7 L Hct 33.0 L MCV 91 MCH 29.6 MCHC 32.4 RDW Std Deviation 49.8 H Plt Count 233 Neut % (Auto) 63 Lymph % (Auto) 20 [place] % (Auto) 9 Eos % (Auto) 7 Baso % (Auto) 0 Neut # (Auto) 3.5 Lymph # (Auto) 1.1 [place] # (Auto) 0.5 Eos # (Auto) 0.4 Baso # (Auto) 0.0 Immature Gran # (Auto) 0.01 H Absolute Nucleated RBC 0.00 Immature Gran % 0 Nucleated RBC % 0 Sodium 142 Potassium 3.3 L D Chloride 101 Carbon Dioxide 25.3 Anion Gap 16 BUN < 5 L Creatinine 0.7 Estim Creat Clear Calc 112.0 eGFR > 60 BUN/Creatinine Ratio 7 L Glucose 68 L Calculated Osmolality 278 Calcium 8.2 L Corrected Calcium 8.7 Phosphorus 4.0 Magnesium 1.4 L Total Bilirubin 1.7 H D Direct Bilirubin 1.1 H AST 351 H ALT 426 H Alkaline Phosphatase 730 H D C-Reactive Prot, Quant 3.9 H Total Protein 5.4 L Albumin 3.4 L Globulin 2.0 L Albumin/Globulin Ratio 1.7 Assessment & Plan A&P Narrative Assessment: Gallstone pancreatitis Choledocholithiasis confirmed by MRCP status post ERCP with stone extraction Plan of care: Continue with LR 250 cc for the next 24 to 48 hours Continue antibiotic and complete 7 courses of antibiotic Check CBC and BMP tomorrow morning Check LFT tomorrow morning Patient needs to follow-up with Dr. Burch's office in 4 to 8 weeks Patient needs repeat ERCP in 9 to 12 days to remove the stent. GI will sign off call GI with any questions Time Spent With Patient Time: Total time spent is greater than 50% in coordination of care (as documented) at patient's floor/unit and/or counseling patient:
[2025-01-10] MEDS: RINGERS LACTATED 1000 ML 1,000 ML 999 ML IV ×2 (18:27→20:04)
--- NOTE | 2025-01-10 18:57 | SUR.PHASEI ---
1857 Report given to Aimee HINSON, patient meets discharge criteria from recovery, awake and talking with this technical document writer, breathing unalbored, vital signs stable, denies pain and nausea, drinking apple juice; tolerating well
--- NOTE | 2025-01-10 19:07 | PC.NURSE ---
first order of indomethacin was placed however pt refused because it was suppository. another order was placed and dr velasquez was in the room when she convinced pt that she should take the suppository therefore the pt agreed and agreed to take the suppository. suppository indomethacin was given. pt aao x4
--- NOTE | 2025-01-10 19:22 | SUR.PHASEI ---
191 patient using the restroom prior to going back to her room 1921 patient transported via [facility] to room 365 without incident, patient able to ambulate from [facility] to bed with stand-by assist, patient resting comfortably in bed with call light in reach when this specification writer left patient room, ECONOMICS INSTRUCTOR at bedside with patient
--- NOTE | 2025-01-10 20:34 | ESPR_ITS ---
Documentation for date of: 01/10/25 Subjective Subjective Interval history: Patient status post ERCP ERS and removal of the common bile duct stone Exam Vital Signs Temp Pulse Resp BP Pulse Ox O2 Del Method O2 Flow Rate 97.3 F 69 15 115/87 H 95 Room Air 4 01/10/25 18:45 01/10/25 20:14 01/10/25 19:00 01/10/25 19:00 01/10/25 19:00 01/10/25 16:00 01/10/25 18:25 Objective Labs 01/10/25 05:09 01/10/25 05:09 Labs: Laboratory Results - last 24 hr 01/10/25 05:09 WBC 5.6 RBC 3.61 L Hgb 10.7 L Hct 33.0 L MCV 91 MCH 29.6 MCHC 32.4 RDW Std Deviation 49.8 H Plt Count 233 Neut % (Auto) 63 Lymph % (Auto) 20 [place] % (Auto) 9 Eos % (Auto) 7 Baso % (Auto) 0 Neut # (Auto) 3.5 Lymph # (Auto) 1.1 [place] # (Auto) 0.5 Eos # (Auto) 0.4 Baso # (Auto) 0.0 Immature Gran # (Auto) 0.01 H Absolute Nucleated RBC 0.00 Immature Gran % 0 Nucleated RBC % 0 Sodium 142 Potassium 3.3 L D Chloride 101 Carbon Dioxide 25.3 Anion Gap 16 BUN < 5 L Creatinine 0.7 Estim Creat Clear Calc 112.0 eGFR > 60 BUN/Creatinine Ratio 7 L Glucose 68 L Calculated Osmolality 278 Calcium 8.2 L Corrected Calcium 8.7 Phosphorus 4.0 Magnesium 1.4 L Total Bilirubin 1.7 H D Direct Bilirubin 1.1 H AST 351 H ALT 426 H Alkaline Phosphatase 730 H D C-Reactive Prot, Quant 3.9 H Total Protein 5.4 L Albumin 3.4 L Globulin 2.0 L Albumin/Globulin Ratio 1.7 Impressions Impression: Choledocholithiasis status post ERCP ERS and balloon extraction of the stone doing well postprocedure Continue to monitor LFTs Assessment & Plan A&P Narrative Assessment: Gallstone pancreatitis Choledocholithiasis confirmed by MRCP status post ERCP with stone extraction Plan of care: Continue with LR 250 cc for the next 24 to 48 hours Continue antibiotic and complete 7 courses of antibiotic Check CBC and BMP tomorrow morning Check LFT tomorrow morning Patient needs to follow-up with Dr. Burch's office in 4 to 8 weeks Patient needs repeat ERCP in 9 to 12 days to remove the stent. GI will sign off call GI with any questions Time Spent With Patient Time: Total time spent is greater than 50% in coordination of care (as documented) at patient's floor/unit and/or counseling patient:
[2025-01-11] VITALS (9 sets, daily range): BP systolic 97–123; BP diastolic 62–86; PULSE 56–84; RESP 17–66; TEMP 36.1–36.6; O2SAT 95–99
[2025-01-11] MEDS: PIPER/TAZO 3.375 GM PREMIX 3.375 GM/50 ML BAG IV ×3 (05:17→21:26)
[2025-01-11 06:03] LABS: Basophils # (Auto) 0.0 Thou/mm3 (0.0-0.2); Basophils % (Auto) 0 % (0-2.5); Eosinophils # (Auto) 0.0 Thou/mm3 (0.0-0.5); Eosinophils % (Auto) 0 % (0-10); Hematocrit 34.1 % (36.0-46.0); Hemoglobin 11.3 g/dL (12.0-16.0); Immature Granulocytes Auto 0.02 Thou/mm3 (0.00-0.00); Lymphocytes # (Auto) 0.6 Thou/mm3 (1.0-4.8); Lymphocytes % (Auto) 11 % (10-50); Mean Corpuscular HGB Conc 33.1 g/dl (31.0-37.0); Mean Corpuscular Hemoglobin 29.6 pg (25.0-35.0); Mean Corpuscular Volume 89 fL (80-100); Monocytes # (Auto) 0.1 Thou/mm3 (0.0-0.8); Monocytes % (Auto) 2 % (0-12); Neutrophils # (Auto) 4.7 Thou/mm3 (1.8-7.7); Neutrophils % (Auto) 87 % (37-80); Nucleated Red Blood Cell # 0.00 Thou/mm3 (0.00-0.00); Nucleated Red Blood Cell % 0 /100 WBC (0); Platelet Count 261 Thou/mm3 (140-440); RDW Standard Deviation 47.2 fL (36.4-46.3); Red Blood Count 3.82 Miln/mm3 (4.00-5.20); White Blood Count 5.4 Thou/mm3 (3.6-11.0)
--- NOTE | 2025-01-11 06:11 | PD.SURPROG ---
Documentation for date of: 01/11/25 Subjective Subjective Narrative: Underwent ERCP with sphincterotomy and stent placement yesterday, reports feeling well today with no pain or nausea, vitals normal, repeat labs pending Exam Vital Signs Temp Pulse Resp BP Pulse Ox O2 Del Method O2 Flow Rate 97.5 F 68 18 120/86 H 97 Room Air 4 01/11/25 04:00 01/11/25 04:00 01/11/25 04:00 01/11/25 04:00 01/11/25 04:00 01/11/25 04:00 01/10/25 18:25 Constitutional Constitutional: no acute distress Routine Respiratory Exam Respiratory: Present no resp distress Routine Abdominal Exam Abdominal: Present soft; Absent tenderness or distended Results Results: Laboratory Laboratory results: results reviewed Assessment & Plan Plan 24F with hypothyroidism, Csection 1mo ago presenting with abdominal pain, findings of gallstone pancreatitis and choledocholithiasis now s/p ERCP with sphincterotomy and stent placement 01/10. I explained benefits/risks of surgery including need for conversion to open, bleeding, infection, injury to nearby structures requiring additional procedures which could mean major biliary reconstruction in another hospital, as well as postoperative hernia and diarrhea. All questions were answered and patient is agreeable to proceeding CLD today, NPO after MN for surgery tomorrow 01/12
[2025-01-11 06:37] LABS: Alanine Aminotransferase 375 U/L (10-49); Albumin, Serum 3.8 gm/dL (3.5-5.0); Albumin/Globulin Ratio 1.4 (1.2-2.2); Alkaline Phosphatase 789 U/L (46-116); Anion Gap 15 (7-16); Aspartate Amino Transferase 128 U/L (0-34); BUN/Creatinine Ratio 8 Ratio (12-20); Bilirubin,Total 1.0 mg/dL (0.3-1.2); Blood Urea Nitrogen < 5 mg/dL (9-23); Calcium 9.1 mg/dL (8.3-10.6); Calcium (Corrected) 9.3 mg/dL (8.5-10.1); Carbon Dioxide 23.8 mMol/L (20.0-31.0); Chloride 102 mMol/L (98-107); Creatinine (Component) 0.6 mg/dL (0.6-1.3); Estimated Creatinine Clearance 130.6 mL/min (>60); Globulin 2.7 gm/dL (2.3-3.5); Glucose 112 mg/dL (74-106); Magnesium 1.7 mg/dL (1.6-2.6); Osmolality,Calculated 279 (275-295); Phosphorous 4.1 mg/dL (2.4-5.1); Potassium 3.9 mMol/L (3.4-5.1); Sodium 141 mMol/L (136-145); Total Protein 6.5 gm/dL (5.7-8.2); eGFR > 60 See Note
[2025-01-11] MEDS: Magnesium Sulfate 4 GM Ivpb 4 GM/50 ML BAG IV (08:30)
[2025-01-11] MEDS: LEVOTHYROXINE SODIUM 125 MCG TABLET PO (08:30)
[2025-01-11] MEDS: HEPARIN SOD INJ 5000 UNIT/ML VIAL SC ×2 (08:53→21:26)
--- NOTE | 2025-01-11 13:59 | ESPR_ITS ---
<Statement entered by Nilesh Gamino MD - 01/11/25 18:08> Patient seen and assessed in hospital bed denies having any concerning symptoms at this time. Patient had ERCP with gastroenterology with removal of 1 stone alongside the sphincterectomy with placement of a biliary stent. As per gastroenterology, the biliary stent will need to be removed in 9-12 days with repeat ERCP to be completed. Patient will have laparoscopic cholecystectomy scheduled with Dr. Douglas on 01/12 and will be kept n.p.o. after midnight. Will continue monitoring and expect discharge within the next 24 to 48 hours. I have personally seen and examined the patient. I agree with the resident's assessment and plan as documented below. Nilesh Gamino DO PGY-2 Internal Medicine - GME Documentation for date of: 01/11/25 Subjective Subjective Interval history: The patient was seen and examined at the bedside with no acute events overnight. Labs and vital signs were reviewed. The patient underwent ERCP yesterday, during which one stone was removed alongside the sphincterectomy with placement of a biliary stent. A repeat ERCP needs to be done in 9 to 12 days to remove the stent. To complete a 7-day course of antibiotics. Follow-up at Dr. Burch's office in 4 to 8 weeks. A cholecystectomy is scheduled with Dr. Douglas tomorrow, CLD today, NPO from midnight. Exam Vital Signs Temp Pulse Resp BP Pulse Ox O2 Del Method O2 Flow Rate 97.6 F 80 18 121/76 98 Room Air 4 01/11/25 12:00 01/11/25 12:00 01/11/25 12:00 01/11/25 12:00 01/11/25 12:00 01/11/25 12:00 01/10/25 18:25 Narrative Exam General: No acute distress; alert and oriented ?3. HEENT: Mucous membranes moist; eyes open, symmetrical, and clear. Cardiovascular: Regular rate and rhythm; no murmurs, rubs, or gallops. Pulmonary: Clear to auscultation bilaterally; no rales, wheezes, or rhonchi; no cough or dyspnea observed. Gastrointestinal: Abdomen soft, nondistended; tenderness to palpation in the right upper quadrant and epigastric region; no rebound or guarding. Skin/MSK/Extremities: No wounds or amputations; no tenderness to palpation; no edema. Pedal pulses palpable bilaterally. Multiple excoriation jacinto noted secondary to itching. Neurological: AAOx3; no focal neurological deficits; moves all four extremities spontaneously. Objective Labs 01/11/25 05:38 01/11/25 05:38 Labs: Laboratory Results - last 24 hr 01/11/25 05:38 WBC 5.4 RBC 3.82 L Hgb 11.3 L Hct 34.1 L MCV 89 MCH 29.6 MCHC 33.1 RDW Std Deviation 47.2 H Plt Count 261 Neut % (Auto) 87 H Lymph % (Auto) 11 [place] % (Auto) 2 Eos % (Auto) 0 Baso % (Auto) 0 Neut # (Auto) 4.7 Lymph # (Auto) 0.6 L [place] # (Auto) 0.1 Eos # (Auto) 0.0 Baso # (Auto) 0.0 Immature Gran # (Auto) 0.02 H Absolute Nucleated RBC 0.00 Immature Gran % 0 Nucleated RBC % 0 Sodium 141 Potassium 3.9 D Chloride 102 Carbon Dioxide 23.8 Anion Gap 15 BUN < 5 L Creatinine 0.6 Estim Creat Clear Calc 130.6 eGFR > 60 BUN/Creatinine Ratio 8 L Glucose 112 H D Calculated Osmolality 279 Calcium 9.1 Corrected Calcium 9.3 Phosphorus 4.1 Magnesium 1.7 Total Bilirubin 1.0 D AST 128 H ALT 375 H Alkaline Phosphatase 789 H D Total Protein 6.5 Albumin 3.8 Globulin 2.7 Albumin/Globulin Ratio 1.4 Quality Measures Quality Measures none Assessment & Plan Assessment Current Active Medications: Generic Name Dose Route Start Last Admin Trade Name Freq PRN Reason Stop Dose Admin Acetaminophen 650 mg 01/08/25 21:58 01/09/25 21:32 Acetaminophen 325 Mg Tablet PO 02/07/25 21:57 650 mg Q6H PRN Administration Fever >101.5 Acetaminophen 650 mg 01/08/25 21:58 01/09/25 09:27 Acetaminophen 325 Mg Tablet PO 02/07/25 21:57 650 mg Q6H PRN Administration PAIN SCALE 1-3 (mild Heparin Sodium (Porcine) 5,000 unit 01/09/25 09:00 01/11/25 08:53 Heparin Sod Inj 5000 Unit/Ml Vial SC 01/23/25 08:59 5,000 unit BID ERASTO Administration Hydromorphone HCl 1 mg 01/08/25 21:58 01/10/25 10:23 Hydromorphone Inj 2 Mg/Ml Vial IVP 01/13/25 21:57 1 mg Q4H PRN Administration PAIN SCALE 4-10(Mod-Sev Piperacillin/Tazobactam/Dextrose 3.375 gm in 50 mls @ 12.5 mls/hr 01/09/25 06:15 01/11/25 13:57 Zosyn IV 01/16/25 06:14 12.5 mls/hr Q8HR ERASTO Administration Protocol Levothyroxine Sodium 125 mcg 01/09/25 06:00 01/11/25 08:30 Levothyroxine Sodium 125 Mcg Tablet PO 02/08/25 05:59 125 mcg ACBR ERASTO Administration Ondansetron HCl 4 mg 01/08/25 21:58 01/10/25 07:31 Ondansetron Inj 2 Mg/Ml Inj 2 Ml IVP 02/07/25 21:57 4 mg Q6H PRN Administration NAUSEA OR VOMITING Protocol Plan 24-year-old female with past medical history of hypothyroidism presented to the ED with complaints of epigastric and right upper quadrant pain since 01/07 night associated with nausea and vomiting. She was admitted for acute gallstone pancreatitis with choledocholithiasis and acute cholecystitis. #Choledocholithiasis with CBD dilatation #Gallstone pancreatitis #Cholecystitis #Hyperbilirubinemia, improving #Transaminitis, improving LFTs improving 01/10: The patient underwent ERCP today, during which one stone was removed and a biliary stent was placed. A repeat ERCP needs to be done in 9 to 12 days to remove the stent. The patient willand complete a 7-day course of antibiotics. Plan: - NPO after midnight - Dr. Celaya to do cholecystectomy tomorrow -Repeat ERCP needs to be done in 9 to 12 days to remove the stent -Consulted Dr. Mcdaniel, senior svp, see recs ?Contiue Zosyn 3.375 every 6 hours to reduce any possible infection, complete 7- day course per GI rec ?Continue to monitor for any worsening of symptoms or labs #Hypothyroidism -Continue her home medication levothyroxine 125mcg, when not NPO Health Maintenance: Code status: Full DVT prophylaxis:Heparin Diet: CLD, NPO after midnight Disposition: Med-Tele Case discussed with my attending Dr. Armstrong, and senior resident, Dr. Stevenson Bruno MD PGY-1 Attending Provider Attestation/Addendum I have examined the patient, reviewed labs and imaging findings, discussed the case with the resident(s), and reviewed entered orders. I agree with the plan of care as outlined in this note, with these additional summaries/recommendations: Patient seen at bedside. No acute overnight events. Patient is status post ERCP yesterday with gastroenterology. Patient tolerated the procedure well. Patient was found to have a filling defect consistent with a stone seen on cholangiogram. Patient diagnosed with choledocholithiasis and had complete removal of the stone by biliary sphincterotomy and balloon extraction. 1 plastic stent was placed in the common bile duct. Patient will need repeat ERCP in 9 to 12 days to remove the stent. Patient will need to follow-up outpatient with gastroenterology. Patient started on clear liquid diet and tolerating. She will be made n.p.o. after midnight for cholecystectomy in AM. Transaminitis improving. Continue IV Zosyn for now. Continue Zofran as needed. Continue home levothyroxine. Patient updated on the plan and in agreement. All questions answered to satisfaction. Please see residents note for additional details and management. Dr. Nathaniel MD
--- NOTE | 2025-01-11 20:28 | PD.IMPROG ---
Documentation for date of: 01/11/25 Subjective Subjective Interval history: Improving LFTs Status post ERCP ERS with removal of the CBD stone Cholecystectomy scheduled for tomorrow Exam Vital Signs Temp Pulse Resp BP Pulse Ox O2 Del Method O2 Flow Rate 97.4 F 59 L 19 97/62 95 Room Air 4 01/11/25 15:57 01/11/25 16:00 01/11/25 15:57 01/11/25 15:57 01/11/25 15:57 01/11/25 15:57 01/10/25 18:25 Objective Labs 01/11/25 05:38 01/11/25 05:38 Labs: Laboratory Results - last 24 hr 01/11/25 05:38 WBC 5.4 RBC 3.82 L Hgb 11.3 L Hct 34.1 L MCV 89 MCH 29.6 MCHC 33.1 RDW Std Deviation 47.2 H Plt Count 261 Neut % (Auto) 87 H Lymph % (Auto) 11 [place] % (Auto) 2 Eos % (Auto) 0 Baso % (Auto) 0 Neut # (Auto) 4.7 Lymph # (Auto) 0.6 L [place] # (Auto) 0.1 Eos # (Auto) 0.0 Baso # (Auto) 0.0 Immature Gran # (Auto) 0.02 H Absolute Nucleated RBC 0.00 Immature Gran % 0 Nucleated RBC % 0 Sodium 141 Potassium 3.9 D Chloride 102 Carbon Dioxide 23.8 Anion Gap 15 BUN < 5 L Creatinine 0.6 Estim Creat Clear Calc 130.6 eGFR > 60 BUN/Creatinine Ratio 8 L Glucose 112 H D Calculated Osmolality 279 Calcium 9.1 Corrected Calcium 9.3 Phosphorus 4.1 Magnesium 1.7 Total Bilirubin 1.0 D AST 128 H ALT 375 H Alkaline Phosphatase 789 H D Total Protein 6.5 Albumin 3.8 Globulin 2.7 Albumin/Globulin Ratio 1.4 Impressions Impression: Symptomatic cholelithiasis Biliary pancreatitis Surgical intervention tomorrow Assessment & Plan A&P Narrative Assessment: Gallstone pancreatitis Choledocholithiasis confirmed by MRCP status post ERCP with stone extraction Plan of care: Continue with LR 250 cc for the next 24 to 48 hours Continue antibiotic and complete 7 courses of antibiotic Check CBC and BMP tomorrow morning Check LFT tomorrow morning Patient needs to follow-up with Dr. Burch's office in 4 to 8 weeks Patient needs repeat ERCP in 9 to 12 days to remove the stent. GI will sign off call GI with any questions Time Spent With Patient Time: Total time spent is greater than 50% in coordination of care (as documented) at patient's floor/unit and/or counseling patient:
[2025-01-12] VITALS (14 sets, daily range): BP systolic 92–141; BP diastolic 64–98; PULSE 60–85; RESP 12–99; TEMP 36.1–36.8; O2SAT 96–100; BMI 35.3
[2025-01-12] MEDS: PIPER/TAZO 3.375 GM PREMIX 3.375 GM/50 ML BAG IV (05:44)
--- NOTE | 2025-01-12 07:35 | PC.NURSE ---
Patient was taken to OR at this time. Patient denies pain or any discomfort.
--- NOTE | 2025-01-12 08:59 | XR_ITS ---
EXAMINATION: Operative cholangiogram AP abdomen portable supine 2 views Date and time: January 12, 2025, 0901 hours INDICATIONS: Laparoscopic cholecystectomy FINDINGS: Opacification of the gallbladder and contrast outside the gallbladder below the liver Biliary stent No diagnostic opacification of the extrahepatic biliary tree IMPRESSION: No diagnostic opacification of the extrahepatic biliary tree
--- NOTE | 2025-01-12 09:35 | PC.SS ---
Follow up note: Gallbladder removal today. Pt will return home upon dc. Pt is on IV antibiotic.
--- NOTE | 2025-01-12 10:21 | ESOP_ITS ---
Date of Procedure 01/12/25 Pre Op Diagnosis Gallstone pancreatitis, choledocholithiasis Post Op Diagnosis Same Procedure Laparoscopic cholecystectomy Findings Gallbladder with numerous stones, dilated cystic duct Procedure Description After discussion of risks and benefits, patient was brought to the operating room, SCDs were placed and general anesthesia was induced. She had already received preoperative antibiotics and was prepped and draped in the usual sterile fashion. After timeout a supraumbilical incision was made with a #15 bl loc and the skin was elevated with towel clamps. A Veress needle was placed through the incision and proper positioning was confirmed with a drop test. The abdomen was then insufflated to 15 mmHg at which point the Veress needle was exchanged for a 5 mm camera using a Visiport technique. There were no signs of injury from the point of entry. 3 additional ports were placed under direct vision, one 12 mm at the epigastrium, one 5 mm right subcostal and one 5 mm right anterior axillary line. Patient was placed in reverse Trendelenburg. The fundus of the gallbladder was grasped retracted cephalad and the infundibulum was grasped and retracted laterally. The lower third of the gallbladder was freed from the liver using electrocautery. Using blunt dissection the hepatocystic triangle was cleared of all fat and fibrous tissue. During this blunt dissection the cystic artery did begin bleeding and so it was clipped and transected in the usual fashion. I continued blunt dissection in order to isolate the cystic duct and found that it was very dilated. In order to confirm that it was in fact the cystic duct, I opted to perform an intraoperative cholangiogram. As patient has an indwelling stent in her common bile duct, this was helpful for ensuring that the cystic duct was indeed the dilated structure contiguous with the neck of the gallbladder and was well away from the CBD s tent. The cystic duct was also the only structure seen entering the gallbladder and the liver was visible when viewing the gallbladder from both medial and lateral aspects. Given its size, the cystic duct was transected with a 35 mm stapler. The gallbladder was removed from the gallbladder bed using electrocautery and then removed in an Endo Catch bag via the epigastric port. The gallbladder bed was irrigated and hemostasis was achieved with electrocautery. The epigastric fascia was closed with a 0 Vicryl suture using a Venu-Benitez. Again the gallbladder bed was inspected and there were no signs of ongoing bleeding. Counts were confirmed correct. Pneumoperitoneum was released and ports were removed under direct vision. Incisions were irrigated and infiltrated with half percent Marcaine for a total of 30 cc. Incisions were closed with 4-0 Monocryl and reinforced with Dermabond Pathology / specimen Other (Gallbladder) Estimated Blood Loss 100 Surgeon Linda Celaya MD Surgical Staff Operation Date: 01/12/25 07:30 Case Staff PRESCHOOL ASSISTANT DIRECTOR: Noel Davis RNconstruction management instructor: Heather Granados
--- NOTE | 2025-01-12 10:24 | SUR.PHASEI ---
pt received from OR in recovery bay 5. pt obtunded, breathing unlabored on oyxmask 6l, oral airway in place. v/s stable. pt dressing to abd dermabond x4 cdi. report received from Bruce HINSON and Antolin JENNINGS.
[2025-01-12] MEDS: fentaNYL CIT INJ 50 mCg/ML AMP 2ML IVP (10:53)
[2025-01-12] MEDS: ACETAMINOPHEN IVPB 1,000 MG/100 ML VIAL 250 MG IV (10:57)
[2025-01-12] MEDS: ONDANSETRON INJ 2 MG/ML INJ 2 ML 4 MG IVP (11:08)
--- NOTE | 2025-01-12 11:21 | SUR.PHASEI ---
pt asleep but responds to voice, breathing unlabored on room air. v/s stable. pt dressing to abd dermabond x4 cdi. report called to Elissa HINSON. pt will be transferred to room at this time.
--- NOTE | 2025-01-12 11:31 | PC.NURSE ---
Patient returned from OR at this time. Patient reports abdominal pain rated 6/10. (4) lap sites noted to be clean, dry and intact.
[2025-01-12] MEDS: HYDROcodone/APAP 5/325 TABLET 1 TAB PO (11:51)
[2025-01-12 13:51] LABS: Basophils # (Auto) 0.0 Thou/mm3 (0.0-0.2); Basophils % (Auto) 0 % (0-2.5); Eosinophils # (Auto) 0.0 Thou/mm3 (0.0-0.5); Eosinophils % (Auto) 0 % (0-10); Hematocrit 36.1 % (36.0-46.0); Hemoglobin 11.5 g/dL (12.0-16.0); Immature Granulocytes Auto 0.06 Thou/mm3 (0.00-0.00); Lymphocytes # (Auto) 0.8 Thou/mm3 (1.0-4.8); Lymphocytes % (Auto) 8 % (10-50); Mean Corpuscular HGB Conc 31.9 g/dl (31.0-37.0); Mean Corpuscular Hemoglobin 29.2 pg (25.0-35.0); Mean Corpuscular Volume 92 fL (80-100); Monocytes # (Auto) 0.2 Thou/mm3 (0.0-0.8); Monocytes % (Auto) 2 % (0-12); Neutrophils # (Auto) 9.0 Thou/mm3 (1.8-7.7); Neutrophils % (Auto) 89 % (37-80); Nucleated Red Blood Cell # 0.00 Thou/mm3 (0.00-0.00); Nucleated Red Blood Cell % 0 /100 WBC (0); Platelet Count 289 Thou/mm3 (140-440); RDW Standard Deviation 50.3 fL (36.4-46.3); Red Blood Count 3.94 Miln/mm3 (4.00-5.20); White Blood Count 10.2 Thou/mm3 (3.6-11.0)
--- NOTE | 2025-01-12 13:52 | PD.RESDS ---
Planned Discharge Date 01/12/25 DS: Providers Provider Date of admission: 01/08/25 21:58 Primary care physician: KATTY Shah Admitting Provider: Gautam Grewal MD Attending Provider on Admission: Saturnino Armstrong MD Consults: 01/08/25 17:37 Consult to Gastroenterology Stat Comment: Consulting Provider: Iggy Mcdaniel Consult to General Surgery Stat Comment: Consulting Provider: Linda Celaya 01/08/25 18:52 Consult to Gastroenterology Stat Comment: Consulting Provider: Atif Gramajo Attending Provider on DC: Nilesh Gamino MD Discharging Provider: Nilesh Gamino MD DS: Diagnosis Problem List Completed Was Problem List Reviewed/Reconciled?: Yes Hospital Course Hospital Course Hospital course: 24-year-old female past medical history of hypothyroidism presented to the ED on 01/08 with epigastric and right upper quadrant tenderness. In ED, patient was normotensive, regular heart rates afebrile and saturating 98 on room air. Pertinent lab findings included hyperbilirubinemia, elevated liver enzymes, elevated lipase and imaging findings including MRCP showed acute calculous cholecystitis with 4 mm stone in the common bile duct, CT scan showed mild edema around the pancreas and cholelithiasis with ultrasound confirming the diagnosis. Patient was admitted with GI consultation and on 01/10 and ERCP was done with retrieval of a biliary duct stone and biliary stent placement. Patient tolerated the procedure well and was scheduled for a laparoscopic cholecystectomy on 01/12 which also was completed without any acute complications. Patient will be discharged from the hospital with the following strict instructions. Please take levofloxacin 750 mg by mouth once a day for three more days Take Percocet 5-325mg tablet every 4 hours as needed for breakthrough pain Continue levothyroxine but take your ferrous sulfate (iron supplements) every other day Follow-up with Dr. Burch (Account Manager Employee Benefits) as your biliary stent needs to be removed in 9-12 days Follow-up with Dr. Celaya (general surgery) within 2 weeks of discharge Follow-up with your PCP within 1 week of discharge or follow-up at the [facility] [address] [place] [address] If your symptoms worsen or if you develop new chest pain, shortness of breath, severe abdominal pain or bleeding - please come back to the ED immediately. Hospital Diagnosis: #Choledocholithiasis with CBD dilatation #Gallstone pancreatitis #Cholecystitis #Hyperbilirubinemia, improving #Transaminitis, improving #Hypothyroidism Nilesh Gamino DO PGY-2 Internal Medicine - GME Time Spent with Patient Time attestation: Total time spent providing and/or coordinating discharge services: 45 minutes Time spent: Greater than 30 minutes Exam Vital Signs Temp Pulse Resp BP Pulse Ox O2 Del Method O2 Flow Rate 97.0 F 60 15 137/87 H 96 Room Air 6 01/12/25 12:00 01/12/25 12:00 01/12/25 12:00 01/12/25 12:00 01/12/25 12:00 01/12/25 12:00 01/12/25 10:35 Narrative Exam General: No acute distress; alert and oriented ?3. HEENT: Mucous membranes moist; eyes open, symmetrical, and clear. Cardiovascular: Regular rate and rhythm; no murmurs, rubs, or gallops. Pulmonary: Clear to auscultation bilaterally; no rales, wheezes, or rhonchi; no cough or dyspnea observed. Gastrointestinal: Abdomen soft, nondistended; tenderness to palpation in the right upper quadrant and epigastric region; no rebound or guarding. Skin/MSK/Extremities: No wounds or amputations; no tenderness to palpation; no edema. Pedal pulses palpable bilaterally. Multiple excoriation jacinto noted secondary to itching. Neurological: AAOx3; no focal neurological deficits; moves all four extremities spontaneously. Discharge Plan Plan Patient Disposition: HOME (Self Care) Care Plan Goals: Please take levofloxacin 750 mg by mouth once a day for three more days Take Percocet 5-325mg tablet every 4 hours as needed for breakthrough pain Continue levothyroxine but take your ferrous sulfate (iron supplements) every other day Follow-up with Dr. Burch (Account Manager Employee Benefits) as your biliary stent needs to be removed in 9-12 days Follow-up with Dr. Celaya (general surgery) within 2 weeks of discharge Follow-up with your PCP within 1 week of discharge or follow-up at the [facility] [address] [place] [address] If your symptoms worsen or if you develop new chest pain, shortness of breath, severe abdominal pain or bleeding - please come back to the ED immediately. Prescriptions/Referrals Prescriptions/Med Rec: New levofloxacin 750 mg tablet 750 mg PO QDAY 3 Days Qty: 3 0RF oxycodone-acetaminophen [Percocet] 5-325 mg tablet 1 tab PO Q4H MDD 6 tabs PRN (Reason: pain) Qty: 20 0RF Rx Instructions: Take 1 tablet as needed every 4-6 hours for moderate to severe pain Continued levothyroxine 125 mcg capsule 125 mcg PO QDAY Qty: 90 3RF Changed ferrous sulfate 325 mg (65 mg iron) tablet 325 mg PO Q OTHER DAY Qty: 60 1RF Referrals: Linda Celaya MD [Physician, General Surgery] Atif Gramajo MD [Physician, Gastroenterology] Wesley Perez FNP [Primary Care Provider] Patient/Caregiver Discharge Instructions Other Discharge Activity Instructions:: Avoid strenuous activity including lifting objects greater than 10 pounds for 6 weeks You may resume showering in 2 days, on 01/14 At that time it is okay to get incisions wet, pat dry after Avoid bathing or swimming for 2 weeks Your incisions have skin glue on them which will fall off on its own and does not need to be replaced Your stitches will not need to be removed During the surgery we fill your abdomen with air in order to see the structures. Some of this air tends to linger and cause pain that is referred to the shoulder as well as pain with deep breaths. This will get better with time. Being out of bed and walking will help the air to absorb faster Gradually advance your diet, starting with liquids and avoiding fatty/spicy/greasy foods If you develop worsening pain, nausea/vomiting, fever or signs of jaundice please seek care in ER Education Materials: Cholecystectomy Laparoscopic Dc, Preventing Surgical Site Infections Print Language: Iranian Stand Alone Forms: Nancie Award Info., Patient Portal Info Letter Discharge Order Discharge Orders: Discharge (Routine); Ordered 01/12/25 Ordered By: Nilesh Gamino Quality Discharge Quality Measures VTE prophylaxis Attestestation MD Attestation I have examined the patient, reviewed labs and imaging findings, discussed the case with the resident(s), and reviewed entered orders. I agree with the plan of care as outlined in this note. Time Spent: [address] Nathaniel MD
[2025-01-12 14:07] LABS: Alanine Aminotransferase 276 U/L (10-49); Albumin, Serum 4.0 gm/dL (3.5-5.0); Albumin/Globulin Ratio 1.6 (1.2-2.2); Alkaline Phosphatase 628 U/L (46-116); Anion Gap 11 (7-16); Aspartate Amino Transferase 109 U/L (0-34); BUN/Creatinine Ratio 7 Ratio (12-20); Bilirubin,Total 0.7 mg/dL (0.3-1.2); Blood Urea Nitrogen < 5 mg/dL (9-23); Calcium 8.7 mg/dL (8.3-10.6); Calcium (Corrected) 8.7 mg/dL (8.5-10.1); Carbon Dioxide 27.1 mMol/L (20.0-31.0); Chloride 102 mMol/L (98-107); Creatinine (Component) 0.7 mg/dL (0.6-1.3); Estimated Creatinine Clearance 112.0 mL/min (>60); Globulin 2.5 gm/dL (2.3-3.5); Glucose 104 mg/dL (74-106); Osmolality,Calculated 276 (275-295); Potassium 4.0 mMol/L (3.4-5.1); Sodium 140 mMol/L (136-145); Total Protein 6.5 gm/dL (5.7-8.2); eGFR > 60 See Note
--- NOTE | 2025-01-12 21:27 | ESPR_ITS ---
Documentation for date of: 01/12/25 Subjective Subjective Interval history: Late entry for the note LFTs improving with a total bilirubin down to 0.7 AST ALT coming down and 109 and 276 Okay to discharge patient to be followed by the PCP Exam Vital Signs Temp Pulse Resp BP Pulse Ox O2 Del Method O2 Flow Rate 97.3 F 63 16 131/81 H 96 Room Air 6 01/12/25 16:00 01/12/25 16:00 01/12/25 16:00 01/12/25 16:00 01/12/25 16:00 01/12/25 16:00 01/12/25 10:35 Objective Labs 01/12/25 12:50 01/12/25 12:50 Labs: Laboratory Results - last 24 hr 01/12/25 12:50 WBC 10.2 D RBC 3.94 L Hgb 11.5 L Hct 36.1 MCV 92 MCH 29.2 MCHC 31.9 RDW Std Deviation 50.3 H Plt Count 289 Neut % (Auto) 89 H Lymph % (Auto) 8 L [place] % (Auto) 2 Eos % (Auto) 0 Baso % (Auto) 0 Neut # (Auto) 9.0 H Lymph # (Auto) 0.8 L [place] # (Auto) 0.2 Eos # (Auto) 0.0 Baso # (Auto) 0.0 Immature Gran # (Auto) 0.06 H Absolute Nucleated RBC 0.00 Immature Gran % 1 H Nucleated RBC % 0 Sodium 140 Potassium 4.0 Chloride 102 Carbon Dioxide 27.1 Anion Gap 11 BUN < 5 L Creatinine 0.7 Estim Creat Clear Calc 112.0 eGFR > 60 BUN/Creatinine Ratio 7 L Glucose 104 Calculated Osmolality 276 Calcium 8.7 Corrected Calcium 8.7 Total Bilirubin 0.7 AST 109 H ALT 276 H Alkaline Phosphatase 628 H D Total Protein 6.5 Albumin 4.0 Globulin 2.5 Albumin/Globulin Ratio 1.6 Impressions Impression: Symptomatic cholelithiasis status post laparoscopic cholecystectomy Gallstone pancreatitis Choledocholithiasis status post ERS with removal of the CBD stone patient doing well postprocedure Okay to discharge to be followed by PCP Assessment & Plan A&P Narrative Assessment: Gallstone pancreatitis Choledocholithiasis confirmed by MRCP status post ERCP with stone extraction Plan of care: Continue with LR 250 cc for the next 24 to 48 hours Continue antibiotic and complete 7 courses of antibiotic Check CBC and BMP tomorrow morning Check LFT tomorrow morning Patient needs to follow-up with Dr. Burch's office in 4 to 8 weeks Patient needs repeat ERCP in 9 to 12 days to remove the stent. GI will sign off call GI with any questions Time Spent With Patient Time: Total time spent is greater than 50% in coordination of care (as documented) at patient's floor/unit and/or counseling patient:
== END 2025-01-12 18:07 | disposition home or self-care (01) | DRG 263 ==
LOC: SERX 19:42 → SERHOLD 22:23 → S3NX 01-09 00:08
PROVIDERS: Internal Medicine Gastroenterology; Nurse Practitioner Family; Student in an Organized Health Care Education/Training Program; Surgery; Admitting Provider Student in an Organized Health Care Education/Training Program; Emergency Provider Emergency Medicine; Visit Provider Student in an Organized Health Care Education/Training Program
PROC: (CPT 43260; principal; 2025-01-10 14:45)
PROC: 0FT44ZZ Resection of Gallbladder, Percutaneous Endoscopic Approach (ICD-10-PCS; CPT 47562; principal; 2025-01-12 07:30)
DX: K85.10 Biliary acute pancreatitis without necrosis or infection (principal); E03.9 Hypothyroidism, unspecified; E66.9 Obesity, unspecified; Z79.890 Hormone replacement therapy; Z88.8 Allergy status to other drugs, medicaments and biological substances; Z68.35 Body mass index [BMI] 35.0-35.9, adult
CPT/HCPCS: 36415; 74176; 74181; 74300; 74330; 76705; 80053; 80061; 80076; 81001; 81025; 83605; 83690; 83735; 84100; 84443; 84478; 85025; 85610; 86140; 93225; 96361; 96365; 96372; 96375; 96376; 99284; A4217; A4649; C1729; C1889; C2617; J0131; J0168; J1100; J1171; J1200; J1644; J1885; J2250; J2270; J2371; J2405; J2470; J2543; J2704; J2710; J3010; J3475; J3480; J3490; J7030; J7120; A9270; J1596; J1805

== ENCOUNTER 2025-02-01 10:25 | Outpatient (AMB) | payer MEDICAID, SELFPAY ==
[2025-02-01 11:02] VITALS: BP 112/75; PULSE 79; RESP 18; TEMP 36.4; O2SAT 98; BMI 35.7
--- NOTE | 2025-02-01 11:02 | PD.GSCLVISIT ---
Vital Signs - [facility] 02/01/25 11:02 Height 1.5 m Height Method Stated Weight 80.399 kg Weight Measurement Method Standing Scale BMI 35.7 BP 112/75 Blood Pressure Source Automatic Cuff Blood Pressure Location Right Upper Arm Position Sitting Respiration 18 Pulse 79 Pulse Source Monitor Temp 97.6 F Temp Source Temporal Artery Scan Pulse Oximetry (%) 98 Oxygen Delivery Method Room Air Med/Allergies Allergies & Medications Allergies erythromycin base (From Erythrocin) Allergy (Verified 01/08/25 03:17) ND Intake Visit Data Collection New Patient or Established: Established Patient (seen at [facility] within 3 years) Reason for Visit:: 2 WEEK POST OP [facility] Pain Present Currently: No Skiver Uppers Or Linings Required: No PCP or OBGYN visit in last 3 months: Yes Hx Now: No Do You Feel Safe at Home: Yes Authorities Contacted: N/A Smoking Status Smoking Status: Never smoker Immunization / Flu Flu Vaccine in the Last 12 Months: No Flu Vaccine Exclusion Criteria: No Exclusion Criteria Past Medical History Past Medical History NEUROLOGIC: Negative Neurological Disorders, Alzheimer's Disease or Seizures CARDIAC: Negative Cardiac Disorders or Congestive Heart Failure RESPIRATORY: Negative Chronic Obstructive Pulmonary Disease (COPD) GASTROINTESTINAL: Negative Gastrointestinal Disorders or Hepatitis GENITOURINARY: Negative Genitourinary Disorders or Renal Disease REPRODUCTIVE: Positive Previous Pregnancies; Negative Endometriosis, Pelvic Inflammatory Disease or Uterine Prolapse MUSCULOSKELETAL: Negative Carpal Tunnel Syndrome ENDOCRINE: Negative Endocrine Disorders, Diabetes Mellitus Type 1 or Diabetes Mellitus Type 2 HEMATOLOGIC: Negative Blood Disorders OTHER HISTORY: Negative Autoimmune Disease, Blood Transfusions, Anesthesia Reactions, Organ Transplant, MRSA, VRSA, Vancomycin-Resistant Enterococci, Clostridium Difficile or Cancer Family History FAMILY HISTORY: Negative Family Cardiac Disorders Surgical History SURGICAL: Negative Thyroidectomy or Organ Transplant Social History SMOKING STATUS: Smoking status: Never smoker ALCOHOL: Alcohol Intake: Never HOUSING: Housing: House LIVES WITH: Lives With: Family HPI HPI Narrative 24F who was admitted with gallstone pancreatitis and choledocholithiasis s/p ERCP followed by [facility] 01/12, here for planned follow up. Pt reports feeling very well; she had pain for the first few days but is now doing well with only occasional pains. She is eating well, just avoiding spicy foods as they have caused her diarrhea and she denies any nausea or fever ROS Review of Systems Systems Reviewed: All systems reviewed, normal except as documented Objective/Exam General General Appearance: alert, cooperative and well groomed Resp Respiratory exam: Absent respiratory distress Abdominal Abdominal exam: Present soft and incision (c/d/i, no erythema, no fluctuance or tenderness); Absent distention or tenderness Results Pathology of gallbladder reviewed Assessment & Plan Diagnosis / Problem List (1) Pancreatitis: Status: Acute Assessment & Plan: 24F who presented with gallstone pancreatitis and choledocholithiasis s/p ERCP followed by [facility] 01/12, recovering well overall. Pt confirmed she has a follow up with Dr Burch for ERCP follow up. I reminded her to avoid strenuous activity including lifting objects >10lbs for 6 weeks postop and encouraged her to reach out if any concerns or questions arise Office Procedures GNS Level of Care Nursing/Assessment Patient Status: Established Patient Nursing Assessment/Reassesment: Medication Reconciliation, Update PMH in EMR and Vital Signs Coordination of Care: Complex Care and Chronic Disease 1-5, Education Complex Pt/Fam, Consent,records obtained, informed consent, Results/Orders obtained and Staff clarify orders Established Patient Charge Established Patient Point Assignment: 95 Established Patient Point Charge: EP Level 3 (80-115) Patient Portal Questionaires Social History Living Situation History Housing: House Housing Other:: Pt lives with family Tobacco History Smoking Status: Never smoker Alcohol History Alcohol Intake: Never Domestic Abuse History Do You Feel Safe at Home: Yes Review of Systems Report any current symptoms Only answer those that you have currently: Past Medical History Past Medical History Have you ever been diagnosed with any of the following: Neurological Problems Alzheimer's Disease: No Seizures: No Cardiology Problems Congestive Heart Failure: No Respiratory Problems Chronic Obstructive Pulmonary Disease (COPD): No Stomache/Intestinal Problems Hepatitis: No Genital/Urinary Problems Renal Disease: No Reproductive Problems Endometriosis: No Pelvic Inflammatory Disease: No Previous Pregnancies: Yes Uterine Prolapse: No Musculoskeletal Problems Carpal Tunnel Syndrome: No Endocrine Problems Diabetes Mellitus Type 1: No Diabetes Mellitus Type 2: No Other Problems Autoimmune Disease: No Blood Transfusions: No Anesthesia Reactions: No Organ Transplant: No MRSA: No VRSA: No Vancomycin-Resistant Enterococci: No Clostridium Difficile: No Cancer: No Surgical History Thyroidectomy: No
== END 2025-02-01 11:11 | disposition home or self-care (01) ==
LOC: HODSRG 10:25
PROVIDERS: Supervising Provider Surgery; Visit Provider Surgery
DX: Z48.815 Encounter for surgical aftercare following surgery on the digestive system (principal); K85.10 Biliary acute pancreatitis without necrosis or infection
CPT/HCPCS: 99213; G0463